=== PATIENT | female | born 1985 | race Caucasian/White ===

== ENCOUNTER 2019-10-23 23:04 | Emergency (ER) | payer BC, OTHER, SELFPAY ==
--- NOTE | ~2019-10-23 | CT_ITS ---
EXAMINATION: CT abdomen pelvis w con INDICATION: Right upper quadrant pain TECHNIQUE: Computed tomographic images of the abdomen and pelvis were obtained after the administrati on of 100 cc of Omnipaque 350 intravenous contrast. The dose-length product (DLP) was 1688.62 mGy-cm. Automated exposure control and iterative reconstruction technique were employed. COMPARISON: 01/07/2019 FINDINGS: The lung bases are clear. The heart size is normal. The liver is diffusely low in attenuati on when compared with the spleen, consistent with hepatic steatosis. The spleen, pancreas, gallbladde r, and adrenal glands are normal. The kidneys are unremarkable. No pathologically enlarged abdominal or pelvic lymph nodes are identified. There is no free intraperitoneal gas or evidence of bowel obstr uction. There is liquid stool throughout the colon to the level of the rectum. There is moderate lowe r lumbar spondylosis. IMPRESSION: 1. No CT correlate for the patient's symptoms. 2. Diffuse hepatic steatosis. Reviewed, dictated and finalized at location A. [employer] TESTER
[2019-10-23 23:05] VITALS: BP 156/110; PULSE 104; RESP 16; TEMP 36.2; O2SAT 98
--- NOTE | 2019-10-23 23:42 | PC.NURSE ---
pt states she was diagnosed w/ flu 3 weeks ago and is having similar symptoms.
--- NOTE | 2019-10-23 23:49 | ED.NAVMDI ---
HPI - Nausea/Vomiting/Diarrhea General Chief complaint: Nausea/Vomiting/Diarrhea Stated complaint: VOMITTING AND DIARRHEA Time Seen by Provider: 10/23/19 23:43 Source: patient and RN notes reviewed Mode of arrival: ambulatory Limitations: no limitations History of Present Illness HPI Narrative: Pt is a 34 y/o female who presents to the ED with c/o nausea, vomiting, and diarrhea starting roughly 2 hours ago. 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 Pt notes that she woke up around 21:40 this evening with nausea and vomiting. She states that her emesis appears reddish/brown in color. Pt states that she has also had two episodes of diarrhea since she began vomiting. She reports recent chills and sore throat, but denies any rhinorrhea, cough, dysuria, or urinary frequency. MD elicited complaint: nausea, vomiting and diarrhea Onset (ago): hour(s) (2) Description of vomiting: other (reddish/brown) Associated nausea: Yes Context: sick contacts Associated symptoms: fever/chills (chills) and other (sore throat) Related Data Allergies Allergy/AdvReac Type Severity Reaction Status Date / Time adhesive Allergy Unknown RASH Verified 07/24/19 18:43 codeine Allergy Unknown Unknown Verified 07/24/19 18:43 levofloxacin Allergy Unknown Unknown Verified 07/24/19 18:43 Penicillins AdvReac Unknown Unknown Verified 07/24/19 18:43 Review of Systems Review of Systems: All systems reviewed & are unremarkable except as noted in HPI and below Constitutional: Constitutional: Reports chills ENT: Denies nasal discharge and Reports sore throat Respiratory: Respiratory: Denies cough Gastrointestinal: Gastrointestinal: Reports diarrhea, Reports nausea and Reports vomiting Genitourinary: Genitourinary: Denies dysuria and Denies other (urinary frequency) [facility] Past Medical History Medical History Anemia Anxiety Arthritis Bipolar disorder Depression GERD (gastroesophageal reflux disease) HTN (hypertension) Migraines PCOS (polycystic ovarian syndrome) Previous known suicide attempt Schizophrenia Sleep apnea UTI (urinary tract infection) Surgical History Surgical History History of bunionectomy History of colonoscopy Hx of foot surgery repair of bunionectomy Hx of spinal surgery Social History Social History Smoking status: Never smoker Alcohol intake: never 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 Exam Narrative: Exam Narrative: GENERAL: Well-appearing, morbidly obese, and in no acute distress. HEAD: Normocephalic, atraumatic. ENT: Mucous membranes moist. CHEST: Clear to auscultation. No respiratory distress. HEART: Regular rate and rhythm. Normal peripheral pulses. ABDOMEN: Soft, mild upper abdominal discomfort without guarding, nondistended, normal active bowel sounds. EXTREMITIES: Normal range of motion. No edema. SKIN: Warm, dry, no rash. NEURO: Alert and oriented x3. PSYCH: Normal mood and affect. Course Course Emergency Course: Informed of results. Discharge home. Vital Signs Vital signs: Vital Signs Temperature 97.2 F L 10/23/19 23:05 Pulse Rate 104 H 10/23/19 23:05 Respiratory Rate 16 10/23/19 23:05 Blood Pressure 156/110 H 10/23/19 23:05 Pulse Oximetry 98 10/23/19 23:05 Temperature 97.2 F L 10/23/19 23:05 Pulse Rate 95 10/24/19 01:30 Respiratory Rate 18 10/24/19 01:30 Blood Pressure 150/92 H 10/24/19 01:30 Pulse Oximetry 99 10/24/19 01:30 MDM - Nausea/Vomiting/Diarrhea Lab Data Result diagrams: 10/24/19 00:07 10/24/19 00:07 Labs: Lab Results 10/24/19 10/24/19 Range/Units 00:07 00:07 WBC 12.4 H (4.5-10.0) K/mm3 RBC 5.04 (4.2-5.4) M/mm3 Hgb 14.9 (12.0-15.0) g/dL Hct 45.2 (37.0-47.0) % MCV 89.7 (80-100) fl MCH 29.6
[2019-10-24] MEDS: ONDANSETRON INJ 4 MG/2 ML VIAL IV PUSH (00:10)
[2019-10-24] MEDS: SODIUM CHLORIDE 0.9% IV 1,000 ML 999 ML IV CONT (00:10)
[2019-10-24 00:25] LABS: Basophils Percent Auto 0.3 % (0.2-1.2); Eosinophils Percent Auto 0.2 % (0-4.4); Hematocrit 45.2 % (37.0-47.0); Hemoglobin 14.9 g/dL (12.0-15.0); Immature Granulocyte Absolute 0.03 K/mm3 (0.00-0.031); Immature Granulocyte Percent A 0.2 % (0-0.5); Lymphocytes Absolute Auto 1.76 K/mm3 (0.9-3.2); Lymphocytes Percent Auto 14.2 % (18.3-44.2); Mean Corpuscular Hemoglobin 29.6 pg (26-34); Mean Corpuscular Volume 89.7 fl (80-100); Mean Platelet Volume 9.7 fl (7.4-10.4); Monocytes Absolute Auto 0.9 K/mm3 (0.1-0.6); Monocytes Percent Auto 7.1 % (2.6-8.5); Neutrophils Absolute Auto 9.7 K/mm3 (1.3-6.7); Platelet Count Result 336 k/mm3 (150-375); Red Blood Count 5.04 M/mm3 (4.2-5.4); Red Cell Distribution Width 13.3 % (11.5-14.5); White Blood Count 12.4 K/mm3 (4.5-10.0)
[2019-10-24 00:27] VITALS: BP 162/95; PULSE 100; RESP 18; O2SAT 99
[2019-10-24 00:33] LABS: Alanine Aminotransferase 52 U/L (4-35); Albumin Level 4.5 g/dL (3.5-5.1); Alkaline Phosphatase 124 U/L (38-126); Aspartate Amino Transferase 61 U/L (14-36); Bilirubin,Total 0.4 mg/dL (0.2-1.3); Blood Urea Nitrogen 8 mg/dL (7-17); Calcium 9.3 mg/dL (8.4-10.2); Carbon Dioxide 29 mmol/L (22-30); Chloride 101 mmol/L (98-107); Estimated CRCL calculation 155 ml/min; Estimated Glomerular Filt Rate > 60; Glucose 130 mg/dL (65-105); Lipase 106 U/L (23-300); Potassium 4.2 mmol/L (3.4-5.0); Sodium 141 mmol/L (137-145)
--- NOTE | 2019-10-24 00:40 | PC.NURSE ---
pt states to this rn that is still nauseated. she also states shes developed abd pain. md notified.
[2019-10-24] MEDS: PROMETHAZINE HCL 25 MG/ML AMPUL 12.5 MG IV PUSH (00:55)
--- NOTE | 2019-10-24 00:59 | PC.NURSE ---
pt to CT via w/c
--- NOTE | 2019-10-24 01:29 | PC.NURSE ---
pt denies any vomiting. states nausea is tolerated. md notified.
[2019-10-24 01:30] VITALS: BP 150/92; PULSE 95; RESP 18; O2SAT 99
[2019-10-24 02:35] VITALS: BP 162/89; PULSE 99; RESP 16; O2SAT 99
[2019-10-24 03:05] VITALS: BP 150/99; PULSE 88; RESP 16; O2SAT 94
== END 2019-10-24 03:07 | disposition home or self-care (01) ==
PROVIDERS: Emergency Provider Emergency Medicine; PCP Family Medicine
DX: K52.9 Noninfective gastroenteritis and colitis, unspecified (principal); Z86.2 Personal history of diseases of the blood and blood-forming organs and certain disorders involving the immune mechanism; M19.90 Unspecified osteoarthritis, unspecified site; I10 Essential (primary) hypertension; E28.2 Polycystic ovarian syndrome; G47.30 Sleep apnea, unspecified; Z87.440 Personal history of urinary (tract) infections
CPT/HCPCS: 36415; 74177; 80053; 81025; 83690; 85025; 87804; 96361; 96374; 96375; 99284; J2405; J2550; J7030; Q9967

== ENCOUNTER 2019-12-28 19:22 | Emergency (ER) | payer BC, OTHER, SELFPAY ==
--- NOTE | ~2019-12-28 | XR_ITS ---
EXAMINATION: XR knee RT 3V DATE: 12/28/2019 21:11 INDICATION: Right knee pain TECHNIQUE: Three views of the right knee were obtained. COMPARISON: 05/06/2014 FINDINGS: Alignment is normal. No fracture or osteochondral lesion. Joint spaces are normal with no e rosions. No joint effusion/synovitis. Soft tissues are unremarkable. IMPRESSION: 1. No acute osseous abnormality. Reviewed, dictated and finalized at location A.
[2019-12-28 19:32] VITALS: BP 163/107; PULSE 99; RESP 19; TEMP 36.6; O2SAT 100
--- NOTE | 2019-12-28 20:05 | ED.GENADULT ---
HPI - General Adult General Chief complaint: Unspecified Stated complaint: sore throat Time Seen by Provider: 12/28/19 20:03 History of Present Illness HPI narrative: 34 yo female w/ h/o obesity, DJD, borderline personality disorder presents with multiple complaints. She has had a cough and sore throat for 2 weeks. More recently she developed nausea, sore throat, and fatigue. Additionally she has pain below her right knee at the insertion of the patellar tendon. She is concerned that she may have COVD-19. 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 Related Data Allergies Allergy/AdvReac Type Severity Reaction Status Date / Time adhesive Allergy Unknown RASH Verified 07/24/19 18:43 codeine Allergy Unknown Unknown Verified 07/24/19 18:43 levofloxacin Allergy Unknown Unknown Verified 07/24/19 18:43 Penicillins AdvReac Unknown Unknown Verified 07/24/19 18:43 Review of Systems Review of Systems: All systems reviewed & are unremarkable except as noted in HPI and below Constitutional: Constitutional: Reports chills and Denies fever(s) Eyes: Eyes: Reports no additional eye complaints ENT: Reports sore throat Cardiovascular: Cardiovascular: Denies chest pain Respiratory: Respiratory: Reports cough and Reports dyspnea PMFSH Social History Social History Smoking status: Never smoker Alcohol intake: never Gender identity (if verbalized by the patient): Female Exam Const: General: no acute distress and alert Nutritional Appearance: obese Orientation/consciousness: patient oriented x3 HENMT: Ears: TM's normal bilaterally and Abnormal EAC present erythema bilateral Face and sinus: sinuses nontender Other: pharynx shows mild erythema Neck: Neck: normal visual inspection and no lymphadenopathy Resp: Effort & Inspection: normal respiratory effort Auscultation: clear to auscultation bilaterally Cardio: Rate: regular rate Rhythm: regular rhythm GI: GI Palp: Yes Soft to palpation and No Tenderness to palpation present (GI) Skin: General skin exam: normal color Rashes: no rashes Neuro: General: patient oriented x3, moves all extremities and no focal motor deficits Speech: normal speech Extrem: Other: tnederness inferior to right knee without other exam findings Psych: Affect: Anxious affect present Course Vital Signs Vital signs: Vital Signs Temperature 36.6 C 12/28/19 19:32 Pulse Rate 99 12/28/19 19:32 Respiratory Rate 19 12/28/19 19:32 Blood Pressure 163/107 H 12/28/19 19:32 Pulse Oximetry 100 12/28/19 19:32 Temperature 37.1 C 12/28/19 22:41 Pulse Rate 85 12/28/19 22:41 Respiratory Rate 16 12/28/19 22:41 Blood Pressure 162/97 H 12/28/19 22:41 Pulse Oximetry 99 12/28/19 22:41 Medical Decision Making MDM Narrative Medical decision making narrative: SHe is at risk for COVID exposure, although symptoms are mild and nonspecific. I will test her due to the fact that she has the potential infect numerous others Medical Records Medical records reviewed: Yes I reviewed the patient's medical records. Vital Signs Vital Signs: Vital Signs Temperature 36.6 C 12/28/19 19:32 Pulse Rate 99 12/28/19 19:32 Respiratory Rate 19 12/28/19 19:32 Blood Pressure 163/107 H 12/28/19 19:32 Pulse Oximetry 100 12/28/19 19:32 Temperature 37.1 C 12/28/19 22:41 Pulse Rate 85 12/28/19 22:41 Respiratory Rate 16 12/28/19 22:41 Blood Pressure 162/97 H 12/28/19 22:41 Pulse Oximetry 99 12/28/19 22:41 Lab Data Labs: Lab Results 12/28/19 Range/Units 22:32 SARS-CoV-2 RNA (RT-PCR) Pending Discharge Plan Discharge Clinical Impression: Pain in right knee Qualifiers: Chronicity: acute Qualified Code(s): M25.561 - Pain in right knee URI (upper respiratory infection) Qualifiers: URI type: unspecified URI Qualified Code(s): J06.9 -
[2019-12-28 22:41] VITALS: BP 162/97; PULSE 85; RESP 16; TEMP 37.1; O2SAT 99
[2019-12-29 15:10] LABS: SARS-CoV-2 RNA PCR Negative
== END 2019-12-28 22:45 | disposition home or self-care (01) ==
PROVIDERS: Emergency Provider Emergency Medicine; PCP Family Medicine
DX: J06.9 Acute upper respiratory infection, unspecified (principal); M25.561 Pain in right knee; E66.9 Obesity, unspecified; Z68.42 Body mass index [BMI] 45.0-49.9, adult
CPT/HCPCS: 73562; 87070; 87635; 99283; C9803; U0003

== ENCOUNTER 2020-02-27 23:12 | Observation (INO) | payer BC, OTHER, SELFPAY ==
--- NOTE | ~2020-02-27 | XR_ITS ---
EXAMINATION: XR chest 1V portable DATE: 02/28/2020 01:18 INDICATION: Status. Left-sided numbness. Chest pain. TECHNIQUE: PA view of the chest was obtained. COMPARISON: None FINDINGS: The lungs are clear with no focal airspace opacities, pulmonary edema, pleural effusion or pneumothor ax. The cardiomediastinal silhouette is normal. Visualized bones and soft tissues are unremarkable. IMPRESSION: 1. No acute cardiopulmonary disease. Reviewed, dictated and finalized at location A.
--- NOTE | ~2020-02-27 | CT_ITS ---
EXAMINATION: CTA brain carotid EXAM DATE: 02/28/2020 01:15 INDICATION: Left-sided numbness for 2 hours. Frontal posterior headache and nausea. TECHNIQUE: Noncontrast head CT. Spiral CTA of the carotid arteries was performed with intravenous i njection 100 cc of Omnipaque 350. Axial, coronal, sagittal reformatted images reviewed. Additional r eformatted images created on dedicated 3-D workstation. NASCET comparable standard used to assess th e degree of arterial stenosis. Spiral CT angiogram cerebral arteries performed with the same intrave nous injection of contrast. Source images of the brain CTA transferred to dedicated workstation for 3 -D rotational image creation. Coronal, sagittal maximum intensity pixel images also reviewed. The d ose-length product (DLP) for this examination was 1853.13 mGy-cm. The exposure was tailored accordi ng to patient size, and iterative reconstruction (ASIR) was used as additional dose reduction techniq ue. Correlation is made to head CT 03/04/2018. FINDINGS: There is no carotid plaque, 0% carotid stenosis bilaterally. There is no carotid or verteb ral basilar arterial dissection or fibromuscular dysplasia. There are no cerebral artery aneurysms. T here is symmetric cerebral artery arborization. The sagittal, transverse and sigmoid sinuses enhance normally, no venous sinus thrombosis. Internal cerebral veins also enhance normally. There is no acute intraparenchymal hemorrhage. No evidence of intraparenchymal brain mass lesion. N o evidence of acute infarction. There is no mass effect or midline shift. There is no obstructive hyd rocephalus suspected. There are no extra-axial collections. There are no calvarial acute fractures. There are no areas of abnormal enhancement on the postcontrast images. Disconjugate gaze. IMPRESSION: 1. No cervical arterial dissection or cerebral artery aneurysm. 2. Normal carotid arteries bilaterally. Reviewed, dictated and finalized at location B.
--- NOTE | ~2020-02-27 | MR_ITS ---
EXAMINATION: MR brain/brain stem wo/w con EXAM DATE: 02/28/2020 12:34 INDICATION: Left-sided paresthesia. Left-sided headache. TECHNIQUE: Magnetic resonance imaging (MRI) of the brain/brain stem obtained without contrast. Sagit julio c T1, axial diffusion, gradient echo (T2*), T1, T2, FLAIR sequences obtained. Patient was then inj ected with 20 cc intravenous Multihance contrast. Axial and coronal postcontrast T1 weighted sequence s obtained. There is no prior study for comparison. FINDINGS: There are no areas of restricted diffusion to suggest acute infarction. There is no acute hemorrhage seen on the T2*, a hemosiderin sensitive sequence. No intraparenchymal brain mass. The ve ntricles are normal in size. There are no extra-axial collections. Flow voids are seen in the cereb ral arteries on the T2-weighted sequences consistent with their expected patency. The orbits are unr emarkable. Soft tissue is unremarkable. There are no areas of abnormal enhancement on the postcont rast images. IMPRESSION: 1. Normal brain MRI examination. Reviewed, dictated and finalized at location B.
--- NOTE | ~2020-02-27 | MR_ITS ---
EXAMINATION: MR cervical spine wo con EXAM DATE: 02/29/2020 13:33 INDICATION: Sensation change. Paresthesia, abnormal or movement. TECHNIQUE: Multi-sequential, multiplanar MR images of the cervical spine were obtained without contra st. Axial T2, axial T2 MERGE sequence. Sagittal T1, T2, T2 fat saturation images also obtained. Th ere is no prior study for comparison. FINDINGS: The vertebral bodies are aligned in the AP dimension. Vertebral body and disc heights are well-maintained. There are no suspicious marrow signal abnormalities. The spinal cord signal intensit y and intrinsic morphology is normal. Cervicomedullary junction is normal in appearance. Paraspinal s oft tissue is unremarkable. Level by level evaluation: C2-C3: Disc does not extend beyond the endplate margin. Uncovertebral joint arthropathy: None. Facet joint arthropathy: Mild bilateral. Neural foraminal stenosis: No stenosis. Central canal stenosis: No stenosis. C3-C4: Disc does not extend beyond the endplate margin. Uncovertebral joint arthropathy: Mild right. Facet joint arthropathy: Mild bilateral. Neural foraminal stenosis: No stenosis. Central canal stenosis: No stenosis. C4-C5: Disc does not extend beyond the endplate margin. Uncovertebral joint arthropathy: Mild bilateral. Facet joint arthropathy: Mild bilateral. Neural foraminal stenosis: No stenosis. Central canal stenosis: No stenosis. C5-C6: There is a mild diffuse disc bulge. Uncovertebral joint arthropathy: Mild bilateral. Facet joint arthropathy: Mild bilateral. Neural foraminal stenosis: Mild left. Central canal stenosis: No stenosis. C6-C7: There is a mild diffuse disc bulge. Uncovertebral joint arthropathy: Mild bilateral. Facet joint arthropathy: Mild bilateral. Neural foraminal stenosis: Minimal left. Central canal stenosis: No stenosis. C7-T1: Disc does not extend beyond the endplate margin. Uncovertebral joint arthropathy: Mild left. Facet joint arthropathy: Mild bilateral. Neural foraminal stenosis: Minimal left. Central canal stenosis: No stenosis. IMPRESSION: 1. Mild cervical spondylosis. 2. Normal cord signal. Reviewed, dictated and finalized at location B.
[2020-02-27 23:13] VITALS: BP 145/108; PULSE 103; RESP 20; TEMP 36.4; O2SAT 99
[2020-02-28] VITALS (12 sets, daily range): BP systolic 133–151; BP diastolic 81–100; PULSE 86–99; RESP 15–21; TEMP 36.3–36.9; O2SAT 96–100
--- NOTE | 2020-02-28 00:08 | ECG_ITS ---
Measurements Intervals Kelley Rate: 96 P: 61 PA: 188 QRS: 37 QRSD: 106 T: 38 QT: 335 QTc: 425 Interpretive Statements SINUS RHYTHM MINIMAL Q WAVES- INFERIOR LEADS NONSPECIFIC T-WAVE ABNORMALITY- HIGH LATERAL LEADS BORDERLINE ECG Electronically Signed On 02-28-2020 6:46:33 CDT by Flako Palm D.O.
--- NOTE | 2020-02-28 00:14 | ED.GENADULT ---
HPI - General Adult General Chief complaint: Unspecified Stated complaint: L SIDED NUMBNESS Time Seen by Provider: 02/27/20 23:28 Source: patient Mode of arrival: ambulatory Limitations: no limitations History of Present Illness HPI narrative: This patient is a 35 year old female who presents for evaluation left face and arm numbness. She states approximately on hour and half ago she noticed numbness to left face and left arm. She reports she does not have numbness but his left side does not feel right. She also reports for the past week she has been intermittent dropping things with both hands. She states she is have abnormal movement that are causing her to drop things. She also reports frontal and posterior headache that is constant. She states she chronically has headaches due to bulging disc and this does not feel any different. She denies vision or speech issues. Related Data Home Medications Medication Instructions Recorded Confirmed cyclobenzaprine 10 mg PO TID PRN 02/28/20 02/28/20 divalproex [Depakote ER] 500 mg PO TID 02/28/20 02/28/20 gabapentin 600 mg PO DIRECTED PRN 02/28/20 02/28/20 quetiapine [Seroquel] 100 mg PO HS 02/28/20 02/28/20 sertraline [Zoloft] 100 mg PO DAILY 02/28/20 02/28/20 Allergies Allergy/AdvReac Type Severity Reaction Status Date / Time adhesive Allergy Unknown RASH Verified 07/24/19 18:43 codeine Allergy Unknown Unknown Verified 07/24/19 18:43 levofloxacin Allergy Unknown Unknown Verified 07/24/19 18:43 Penicillins AdvReac Unknown Unknown Verified 07/24/19 18:43 Review of Systems Review of Systems: All systems reviewed & are unremarkable except as noted in HPI and below Cardiovascular: Cardiovascular: Reports chest pain Gastrointestinal: Gastrointestinal: Denies abdominal pain and Denies nausea Neurologic: Denies dizziness, Reports headache(s) (chronic), Denies focal weakness and Reports numbness Psychiatric: Psychiatric: Reports anxiety PMFSH Past Medical History Medical History Anemia Anxiety Arthritis Bipolar disorder Depression GERD (gastroesophageal reflux disease) HTN (hypertension) Migraines PCOS (polycystic ovarian syndrome) Previous known suicide attempt Schizophrenia Sleep apnea UTI (urinary tract infection) Social History Social History Smoking status: Never smoker Alcohol intake: current Drinks per week: 1 Substance use: unknown Gender identity (if verbalized by the patient): Female Spiritual care concerns: No Exam Narrative: Exam Narrative: GENERAL: Well-appearing, well-nourished, and in no acute distress. obese HEAD: Normocephalic, atraumatic EYES: PERRLA and EOMI, conjunctiva clear without discharge EARS: TM's clear bilaterally without erythema or dullness NOSE: Nares clear, no rhinorrhea or epistaxis THROAT:Mucous membranes moist, Oropharynx normal without erythema, exudate, peritonsillar swelling or fluctuance NECK: Supple, without lymphadenopathy or mass RESPIRATORY: No respiratory distress, Airway patent, Respirations non-labored, Clear to auscultation without rales, rhonchi or wheeze HEART: Regular rate and rhythm. No murmur heard. Normal peripheral pulses. ABDOMEN: Soft, nontender, nondistended, normal active bowel sounds. No masses. No rebound or guarding, No organomegaly. EXTREMITIES: No edema, normal strength with full range of motion. some tremors SKIN: Warm, dry, normal color without rash NEURO: Alert and oriented x3. CN 2-12 grossly intact. No focal deficits. PSYCH: Normal mood and affect. Course Reevaluation(s) Date: 02/28/20 Time: 04:03 Consultations Consultation #1: I have discussed with Dr. Kelley patient's symptoms. He recommends offering admission for evaluation with EEG possible LP Date: 02/28/20 Time: 03:30 Consultation #2: I have discsused with Dr. Ling who accepts for observation to tele Date:
[2020-02-28 00:33] LABS: Glucose Point of Care 165 (65-105)
[2020-02-28 00:36] LABS: Basophils Percent Auto 0.6 % (0.2-1.2); Eosinophils Percent Auto 0.4 % (0-4.4); Hematocrit 42.5 % (37.0-47.0); Hemoglobin 14.2 g/dL (12.0-15.0); Immature Granulocyte Absolute 0.01 K/mm3 (0.00-0.031); Immature Granulocyte Percent A 0.1 % (0-0.5); Lymphocytes Absolute Auto 2.34 K/mm3 (0.9-3.2); Lymphocytes Percent Auto 32.9 % (18.3-44.2); Mean Corpuscular HGB Conc 33.4 g/dl (32-36); Mean Corpuscular Hemoglobin 29.9 pg (26-34); Mean Corpuscular Volume 89.5 fl (80-100); Mean Platelet Volume 9.3 fl (7.4-10.4); Monocytes Absolute Auto 0.6 K/mm3 (0.1-0.6); Monocytes Percent Auto 7.7 % (2.6-8.5); Neutrophils Absolute Auto 4.2 K/mm3 (1.3-6.7); Neutrophils Percent Auto 58.3 % (45.5-73.1); Platelet Count Result 291 k/mm3 (150-375); Red Blood Count 4.75 M/mm3 (4.2-5.4); Red Cell Distribution Width 13.6 % (11.5-14.5); White Blood Count 7.1 K/mm3 (4.5-10.0)
[2020-02-28 00:45] LABS: Prothrombin Time 12.4 Seconds (11.1-14.7)
[2020-02-28 00:47] LABS: Blood Urea Nitrogen 8 mg/dL (7-17); Calcium 9.1 mg/dL (8.4-10.2); Carbon Dioxide 32 mmol/L (22-30); Chloride 103 mmol/L (98-107); Estimated CRCL calculation 156 ml/min; Estimated Glomerular Filt Rate > 60; Glucose 152 mg/dL (65-105); Potassium 3.8 mmol/L (3.4-5.0); Sodium 139 mmol/L (137-145)
[2020-02-28 00:59] LABS: Troponin I < 0.012 ng/mL (0.000-0.034)
--- NOTE | 2020-02-28 01:06 | PC.NURSE ---
Callled lab to add on Valproic Acid
[2020-02-28 01:37] LABS: Valproic Acid 79.9 ug/mL (50-120)
--- NOTE | 2020-02-28 05:42 | PC.NURSE ---
This patient, Kathy Malcolm, was admitted to 2 Medical Room 242-. Patient/family oriented to hospital policies and general routines including ID bracelet, bed and alarms, visiting hours, pain management, procedures, bathroom and other care routines, personal items, smoking policy, room service/diet, and visiting hours. Valuables list has been completed. Information on how to activate the Rapid Response Team has been discussed. Patient/Family are encouraged to report perceived risks to care and to ask questions if they do not understand what they are told or what they should do.
[2020-02-28] MEDS: DIVALPROEX SODIUM ER 500 MG TAB PO (08:33)
[2020-02-28] MEDS: SERTRALINE HCL 50 MG TABLET 100 MG PO (08:33)
--- NOTE | 2020-02-28 11:00 | NEURO_ITS ---
TEST: ELECTROENCEPHALOGRAM DIAGNOSIS: ABNORMAL MOVEMENTS PATIENT NUMBER: [id number] EEG NUMBER: [id number] RECORDING DATE: 02/28/20 CLINICAL HISTORY: Patient reports she noticed some numbness of her left arm and left side of face. CONDITION OF RECORDING: Awake, drowsy and sleep EEG DESCRIPTION: Basic resting occipital frequency consists of moderate amount of fairly well organized low voltage 8-10hz alpha mixed with low to medium voltage 6-7hz theta. During drowsiness low voltage beta activity is seen diffusely mixed with waxing and waning posterior alpha rhythms. Bilateral symmetrical sleep activity is seen during sleep. Hyperventilation and photic stimulation were not done. Nonparoxysmal. Nonfocal. Nonlateralizing. IMPRESSION: No significant abnormalities noted during wakefulness, drowsiness and sleep. MTDD
[2020-02-28] MEDS: GABAPENTIN 300 MG CAPSULE 600 MG PO ×2 (11:50→20:34)
--- NOTE | 2020-02-28 14:10 | PM.IMHP ---
H&P: HPI History of Present Illness Chief complaint: parasthesis, abnormal arm movements, headache Narrative: Kathy Malcolm is a 35 year old female with PMH significant for degenerative arthritis, L5-S1 and L4-L5 disc herniation, migraines, PCOS, bipolar disorder, major depressive disorder, dependent obsessive compulsive disorder and borderline personality disorder, binge eating disorder, anxiety, psychosis, and hx of petit mal seizure disorder who presented to the emergency department for the evaluation of numbness of the left face and lateral aspect of the left arm and leg with onset approximately 1.5 hours prior to presentation to the ED at 11:30PM. She reports that it is improving but is still present. She denies associated vision complaints and speech change. She reports chronic, intermittent headaches due to her bulging discs as well as migraines but reports that this is at baseine and her headache was no worse at symptom onset. She reports a hx of prior episodes of paresthesias bugs crawling and numbness in various areas but notes that they have always been short-lived prior to this episode. She endorses episodes of intermittent hand twitching bilaterally which causes her to drop things. Her father was affected by multiple sclerosis and she is concerned that she may be developing early signs of MS. She reports that she saw neurology several years ago for her seizure disorder but has not seen neurology recently. She was established with a psychiatrist but her PCP is currently managing her psychiatric medications. She reports ongoing depression but denies suicidal or homicidal ideations. Initial workup in the emergency department revealed CO2 of 32 and glucose of 152. CBC and BMP were otherwise unremarkable. Valproic acid level was normal at 79.9. Chest xray revealed no acute cardiopulmonary disease. CTA head and neck was unreamrkable with no carotid stenosis, cervical arterial dissection, or cerebral artery aneurysm. Dr. Kelley was consulted from the emergency department and the patient was admitted to the hospitalist service. MRI was performed and was normal without evidence of infarction, mass, or abnormal enhancement. She underwent EEG which revealed no significant abnormalities during wakefulness, drowsiness, and sleep. Review of Systems Review of Systems: Narrative: Constitutional: Denies fever, chills, fatigue, and weight change. Eyes: Denies vision change. No additional eye complaints. ENT: Denies change in hearing and sore throat. Cardiovascular: Denies palpitations and chest pain. Respiratory: Denies cough and shortness of breath. Gastrointestinal: Denies abdominal pain. Reports constipation and mild nausea. Genitourinary: Denies dysuria, frequency, urgency, and hesitancy. Musculoskeletal: Reports chronic back pain due to herniated disc disease. Reports chronic right knee pain. Skin: Denies active lesions or wounds. Neurologic: Reports numbness to the left face and lateral arm and leg. Denies speech change. Reports intermittent paresthesias. Psychiatric: Reports chronic dysthymia. She sees a counselor and her PCP is managing her antidepressives and other psychiatric medications. She denies suicidal or homicidal ideation. Hematologic: Denies easy bruising and bleeding. All systems reviewed & are unremarkable except as noted in HPI and below PMFSH Past Medical History Medical History Anemia Anxiety Arthritis Bipolar disorder Borderline personality disorder Degenerative arthritis Dependent personality disorder Depression Disc herniation GERD (gastroesophageal reflux disease) HTN (hypertension) Migraines Obsessive compulsive personality disorder PCOS (polycystic ovarian syndrome) Petit mal epilepsy Previous known suicide attempt Schizophrenia Sleep apnea UTI (urinary tract infection) Surgical History Surgical History
--- NOTE | 2020-02-28 14:42 | PCCCNOTE ---
On 02/28/20, the student, [Nisha Bernstein], provided care and completed [facility] documentation on this patient. I have reviewed the student's documentation and agree with the findings.
[2020-02-28 15:05] LABS: Glucose Point of Care 148 (65-105)
--- NOTE | 2020-02-28 17:59 | CONS_ITS ---
DATE OF CONSULTATION: 02/28/2020 HISTORY OF PRESENT ILLNESS: A 35-year-old lady has been admitted to [facility] through the emergency room for the complaint of paresthesia with the abnormal movements and headache. In addition to ongoing history of: 1. Degenerative arthritis at the level of L5-S1 and L4-5 with disk herniation. 2. Migraines. 3. Polycystic ovarian syndrome. 4. Bipolar disorder. 5. Obsessive-compulsive disorder. 6. Personality disorder. 7. Petite mal seizure. She presented to the hospital for the complaints of numbness of the left side of the face and lateral aspect of left arm and left lower extremity of 1.5 hours duration. By the time she came to the emergency room, it was still there, but definitely improving according to the information from here. She has history of chronic intermittent headaches due to her bulging disk as well as migraine. She has had previously episodes of paresthesia such as bugs crawling and numbness in various areas, but they have always been short-lived prior to the episode. She also had episodes of twitching of the hands bilaterally resulting in the drop of the things out of her hand. Her father was affected by multiple sclerosis. She is concerned about that particular problem having herself. Her PCP is managing her currently psychiatric medication. She is not suicidal or homicidal. In the emergency room, the chest x-ray was negative. CTA of the head and neck was read negative with no evidence of cervical arterial dissection or cerebral artery aneurysm. MRI was also performed, which showed no evidence of stroke. EEG was also done, which was read by myself, which revealed no evidence of any paroxysmal activity. In addition to past history, consistent with multiple medical problems as mentioned. She had a history of bunionectomy, colonoscopy, foot surgery and spinal surgery. Father carries the diagnosis of depression, multiple sclerosis, diabetes mellitus and mother also carries the diagnosis of hypertension and diabetes mellitus. 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 She is never smoker. Current alcohol drinker, 1 drinks per week. She is smoking marijuana, infrequent for the pain and anxiety. MEDICATIONS: Include: 1. Cyclobenzaprine 10 mg 3 times a day. 2. Depakote 500 mg p.o. t.i.d. 3. Gabapentin 600 p.r.n. 4. Seroquel 100 mg h.s. 5. Sertraline 100 mg daily. ALLERGIES: SHE IS ALLERGIC TO ADHESIVE TAPE, CODEINE, LEVOFLOXACIN, AND PENICILLIN. PHYSICAL EXAMINATION: VITAL SIGNS: Evaluation up until now revealed her to be afebrile with pulse of 103, respirations 20, blood pressure 145/108, pulse ox 99%. GENERAL: Physical examination revealed her to be obese, in no obvious acute distress. Able to ambulate independently. HEENT: Head normocephalic with no cranial bruit. Ear, nose and throat examination normal. NECK: Supple with no cervical bruit. No thyromegaly. No lymphadenopathy. HEART: Regular with no murmur. LUNGS: Clear to auscultation with no creps or rhonchi. ABDOMEN: Soft with no organomegaly. There was no evidence of this edema or erythema of the lower extremities. NEUROLOGICAL: She was awake, alert, oriented x3. Pupils round, regular. Cherry of vision full. Extraocular movements full. Face symmetrical. Tongue midline. Motor examination revealed her to have no drift of one side or other side. Tone was normal. Reflexes were sluggish. Plantars were downgoing. There was no evidence of gross sensory or cerebellar deficit. LABORATORY DATA: Evaluation up until now revealed CBC with no leukocytosis. Hemoglobin 14.2, platelet count 291. Normal basic metabolic panel except glucose of 152. Troponin less than 0.12. Considering the complicated history, the MRI of
[2020-02-28] MEDS: QUEtiapine FUMARATE 100 MG TABLET PO (20:02)
[2020-02-28] MEDS: DOCUSATE SODIUM 100 MG CAPSULE PO (20:02)
[2020-02-28] MEDS: DIVALPROEX SODIUM ER 500 MG TAB 1000 MG PO (20:04)
[2020-02-28] MEDS: ONDANSETRON HCL ODT 4 MG TABLET PO (20:17)
[2020-02-28] MEDS: CYCLOBENZAPRINE HCL 10 MG TABLET PO (20:34)
[2020-02-29] VITALS (7 sets, daily range): BP systolic 122–123; BP diastolic 60–73; PULSE 71–89; RESP 12–16; TEMP 36.3–36.5; O2SAT 95–97
[2020-02-29 06:10] LABS: Alanine Aminotransferase 58 U/L (4-35); Albumin Level 3.9 g/dL (3.5-5.1); Alkaline Phosphatase 108 U/L (38-126); Aspartate Amino Transferase 78 U/L (14-36); Bilirubin,Total 0.4 mg/dL (0.2-1.3); Blood Urea Nitrogen 9 mg/dL (7-17); Calcium 8.9 mg/dL (8.4-10.2); Carbon Dioxide 32 mmol/L (22-30); Chloride 102 mmol/L (98-107); Estimated CRCL calculation 157 ml/min; Estimated Glomerular Filt Rate > 60; Glucose 105 mg/dL (65-105); Potassium 4.5 mmol/L (3.4-5.0); Sodium 139 mmol/L (137-145)
[2020-02-29] MEDS: DIVALPROEX SODIUM ER 500 MG TAB PO (08:15)
[2020-02-29] MEDS: DOCUSATE SODIUM 100 MG CAPSULE PO (08:15)
[2020-02-29] MEDS: SERTRALINE HCL 50 MG TABLET 100 MG PO (08:15)
--- NOTE | 2020-02-29 10:59 | WPDNEURORHBP ---
Subjective Date/time seen: 02/29/20 10:59 C/onumbness of IDALMISE with concer about MS Review of Systems Review of Systems: All systems reviewed & are unremarkable except as noted in HPI and below Exam Const: General: cooperative, healthy appearing, comfortable, no acute distress, alert and awake Nutritional Appearance: overweight Orientation/consciousness: patient oriented x3 Limitations: no limitations HENMT: Head: normal to inspection and normocephalic Ears: hearing grossly normal bilaterally General nose exam: Normal external nose present and No nasal discharge present Mouth: Yes Normal oral and palatal mucosa present Eyes: General: appearance normal, both eyes and all related structures Visual Mike: normal visual mike by confrontation Alignment and Position: alignment normal Periorbital: periorbital findings normal Eyelids: eyelids normal Conjunctivae: conjunctivae normal Sclera: sclerae normal Cornea: corneas normal Pupils: Equal, round and reactive pupils present EOM: EOMs intact bilaterally Neck: Neck: full ROM Resp: Effort & Inspection: normal respiratory effort and able to speak in complete sentences Auscultation: clear to auscultation bilaterally Cardio: Rate: regular rate Rhythm: regular rhythm GI: Auscultation: normal bowel sounds Skin: General skin exam: no rashes or lesions noted Neuro: General: patient oriented x3 and gait normal Cranial nerves: Yes CN's II-XII intact bilaterally Cognition (Neuro): normal cognition Speech: normal speech Gait exam (Neuro): Normal gait present Motor exam (neuro): 5/5 motor strength present throughout Sensory Exam: normal sensation Deep tendon reflexes (DTR's): Right triceps reflex intensity grade: 1+, Left triceps reflex intensity grade: 1+, Rt Biceps (C5, C6): 1+, Left biceps reflex intensity grade: 1+, Right brachioradialis reflex intensity grade: 1+, Left brachioradialis reflex intensity grade: 1+, Right patellar reflex intensity grade: 1+, Left patellar reflex intensity grade: 1+, Right ankle reflex intensity grade: 1+ and Left ankle reflex intensity grade: 1+ Plantar Reflex Responses: downgoing: bilateral Coordination: [id number] test normal Extrem: General: normal to inspection Psych: Appearance: grossly normal Objective Data Vital Signs Vital Signs: Vital Signs - 24 hr 02/28/20 14:00 02/28/20 16:00 02/28/20 20:00 Temperature 36.9 C Pulse Rate 87 95 90 Respiratory Rate 21 H Blood Pressure 146/89 H Pulse Oximetry 96 02/28/20 21:33 02/29/20 00:00 02/29/20 01:31 Temperature Pulse Rate 86 85 71 Respiratory Rate 15 12 Blood Pressure Pulse Oximetry 97 95 02/29/20 04:00 02/29/20 08:00 02/29/20 09:14 Temperature 36.5 C Pulse Rate 81 87 79 Respiratory Rate 16 Blood Pressure 122/73 Pulse Oximetry 97 Intake/Output Intake/Output: Intake & Output 02/26/20 02/27/20 02/28/20 02/29/20 23:59 23:59 23:59 23:59 Intake Total 830 420 Balance 830 420 Meds/Results Medications: Active Medications Generic Name Dose Route Start Last Admin Trade Name Freq PRN Reason Stop Dose Admin Cyclobenzaprine HCl 10 mg 02/28/20 07:06 02/28/20 20:34 Flexeril PO 10 mg TID PRN Administration Muscle Pain Divalproex Sodium 500 mg 02/28/20 09:00 02/29/20 08:15 Depakote Er PO 500 mg QAM SUKI Administration Divalproex Sodium 1,000 mg 02/28/20 21:00 02/28/20 20:04 Depakote Er PO 1,000 mg HS SUKI Administration Docusate Sodium 100 mg 02/28/20 21:00 02/29/20 08:15 Colace Capsule PO 100 mg Q12HR SUKI Administration Gabapentin 600 mg 02/28/20 07:06 02/28/20 20:34 Neurontin PO 600 mg QID PRN Administration Pain Ondansetron HCl 4 mg 02/28/20 16:23 02/28/20 20:17 Zofran Odt PO 4 mg Q6H PRN Administration Nausea And Vomiting Quetiapine Fumarate 100 mg 02/28/20 21:00 02/28/20 20:02 Seroquel PO 100 mg HS SUKI Administration Sertraline HC
[2020-02-29] MEDS: DIAZEPAM 5 MG TABLET 10 MG PO (12:52)
--- NOTE | 2020-02-29 16:14 | PM.DS ---
DS: Admitting Diagnosis Admitting Diagnosis Admitting Diagnosis: Anesthesia of skin DS: Discharge Diagnosis Discharge Diagnosis (1) Left sided numbness: Code(s): R20.0 - Anesthesia of skin Status: Acute Assessment and Plan: The patient reported left sided numbness of the face and lateral aspect of the arm and leg ongoing for 1 day. She expressed concern about multiple sclerosis as her father was affected by MS. She was seen in consultation by neurology. CTA brain was unremarkable and MRI was negative for acute stroke, hemorrhage, mass, or fluid collection. EEG revealed no significant abnormalities during wakefulness, drowsiness, and sleep. There was no abnormal enhancement on post-contrast imaging. MRI cervical spine demonstrated mild cervical spondylosis and normal cord signal. She may follow up with Dr. Kelley as an outpatient if she has further concerns. (2) Elevated hemoglobin A1c: Code(s): R73.09 - Other abnormal glucose Status: Acute Assessment and Plan: She had an elevated fasting glucose, therefore A1c was checked and found to be elevated at 7.0%. We discussed methods glycemic control including optimizing diet and exercise as well as beginning Metformin, which she requested. She has previously been on metformin and tolerated it well. She will begin a low dose metformin and follow up with PCP for uptitration. I reiterated importance of proper nutrition and beginning an exercise regimen. (3) Bipolar disorder: Qualifiers: Active/Remission status: remission status unspecified Qualified Code(s): F31.9 - Bipolar disorder, unspecified Code(s): F31.9 - Bipolar disorder, unspecified Status: Chronic Assessment and Plan: Chronic and stable. Continue seroquel and divalproex. She has been encouraged to re-establish care with her psychiatrist. (4) Depression: Qualifiers: Depression Type: major depressive disorder Major depression recurrence: recurrent Active/Remission status: remission status unspecified Qualified Code(s): F33.9 - Major depressive disorder, recurrent, unspecified Code(s): F32.9 - Major depressive disorder, single episode, unspecified Status: Chronic Assessment and Plan: Chronic and stable. Continue sertraline, outpatient counseling, and PCP follow-up. She has been encouraged to re-establish care with her psychiatrist. (5) Chronic pain: Qualifiers: Chronic pain type: other chronic pain Qualified Code(s): G89.29 - Other chronic pain Code(s): G89.29 - Other chronic pain Status: Acute Assessment and Plan: Chronic and stable. Continue gabapentin as needed. (6) Obstructive sleep apnea: Code(s): G47.33 - Obstructive sleep apnea (adult) (pediatric) Status: Chronic Assessment and Plan: Continue CPAP titrated to home setting. (7) Muscle spasm: Code(s): M62.838 - Other muscle spasm Status: Acute Assessment and Plan: Continue cyclobenzaprine as needed DS: Summary Hospital Course Reason for hospitalization: Left side numbness Hospital Course: Date of admission: 02/28/2020 Date of discharge: 02/29/2020 Kathy Malcolm is a 35 year old female with a PMH significant for bipolar disorder, borderline, dependent, and obsessive compulsive personality disorder, JAMILAH, and HTN as well as family history significant for MS in her father who presented to the emergency department on 02/28/2020 with complaints of left sided numbness to face and arm as well as posterior headache. At presentation, HR 103, BP 145/108, CBC and electrolytes stable, glucose 165, troponin <0.012, valproic acid levels within range, EKG with sinus rhythm, CTA head and neck without dissection or aneurysm, and normal carotid arteries. She was admitted to the hospitalist service and seen in consultation with neurology with workup as described above. Her skin anesthesia improv
[2020-02-29] MEDS: ONDANSETRON HCL ODT 4 MG TABLET PO (17:17)
== END 2020-02-29 17:33 | disposition home or self-care (01) ==
LOC: ANHED 23:54 → ANH2MED 02-28 04:44
PROVIDERS: Physician Assistant; Admitting Provider Family Medicine; Emergency Provider General Practice; PCP Family Medicine; Visit Provider Physician Assistant
DX: R20.0 Anesthesia of skin (principal); F31.9 Bipolar disorder, unspecified; G89.29 Other chronic pain; G47.33 Obstructive sleep apnea (adult) (pediatric); K59.00 Constipation, unspecified; K21.9 Gastro-esophageal reflux disease without esophagitis; I10 Essential (primary) hypertension; M19.90 Unspecified osteoarthritis, unspecified site; M62.838 Other muscle spasm; M79.7 Fibromyalgia; M47.812 Spondylosis without myelopathy or radiculopathy, cervical region; R73.09 Other abnormal glucose; R25.9 Unspecified abnormal involuntary movements; R07.9 Chest pain, unspecified
CPT/HCPCS: 36415; 70496; 70498; 70553; 71045; 72141; 80048; 80053; 80164; 82948; 83036; 84484; 85025; 85610; 85730; 93005; 95816; 99285; A9270; A9577; G0378; G0379; Q9967

== ENCOUNTER 2020-05-19 11:45 | Outpatient (CLI) | payer OTHER, SELFPAY ==
--- NOTE | ~2020-05-19 | XR_ITS ---
XR knee RT 3V DATE: 05/19/2020 13:16 INDICATION: Chronic bilateral knee pain TECHNIQUE: [place] and AP and lateral views COMPARISON: None FINDINGS: No fracture or dislocation or joint effusion. No periosteal reaction or bone destruction. J oint spaces are well preserved. No radiopaque intra-articular loose body or chondrocalcinosis. IMPRESSION: Negative Reviewed, dictated and finalized at location A. IMPRESSION: Negative
--- NOTE | ~2020-05-19 | XR_ITS ---
XR knee LT 3V 05/19/2020 13:16 INDICATION: Left knee pain PROCEDURE: 3 views left knee COMPARISON: No prior studies for comparison. FINDINGS: Fracture, dislocation or subluxation is not identified. No significant joint effusion. The soft tissues appear within normal limits. No foreign bodies are identified. IMPRESSION: 1: NO ACUTE BONE OR JOINT ABNORMALITY IDENTIFIED. Reviewed, dictated and finalized at location A.
[2020-05-19 12:35] LABS: Basophils Percent Auto 0.6 % (0.2-1.2); Eosinophils Percent Auto 0.6 % (0-4.4); Hemoglobin 14.2 g/dL (12.0-15.0); Immature Granulocyte Absolute 0.01 K/mm3 (0.00-0.031); Immature Granulocyte Percent A 0.1 % (0-0.5); Lymphocytes Absolute Auto 2.52 K/mm3 (0.9-3.2); Lymphocytes Percent Auto 35.8 % (18.3-44.2); Mean Corpuscular Hemoglobin 29.6 pg (26-34); Mean Corpuscular Volume 89.6 fl (80-100); Mean Platelet Volume 9.5 fl (7.4-10.4); Monocytes Absolute Auto 0.8 K/mm3 (0.1-0.6); Monocytes Percent Auto 11.5 % (2.6-8.5); Neutrophils Absolute Auto 3.6 K/mm3 (1.3-6.7); Neutrophils Percent Auto 51.4 % (45.5-73.1); Platelet Count Result 301 k/mm3 (150-375); Red Cell Distribution Width 13.4 % (11.5-14.5)
[2020-05-19 12:48] LABS: Alanine Aminotransferase 114 U/L (4-35); Albumin Level 4.4 g/dL (3.5-5.1); Alkaline Phosphatase 123 U/L (38-126); Anion Gap 9 mmol/L (8-16); Aspartate Amino Transferase 164 U/L (14-36); Bilirubin,Total 0.6 mg/dL (0.2-1.3); Blood Urea Nitrogen 13 mg/dL (7-17); Calcium 9.5 mg/dL (8.4-10.2); Carbon Dioxide 30 mmol/L (22-30); Chloride 101 mmol/L (98-107); Estimated Glomerular Filt Rate > 60; Glucose 120 mg/dL (65-105); Potassium 4.3 mmol/L (3.4-5.0); Sodium 140 mmol/L (137-145)
[2020-05-19 13:05] LABS: Beta HCG Quantitative < 2.39 mIU/ML
== END 2020-05-19 11:46 | disposition home or self-care (01) ==
PROVIDERS: PCP Family Medicine
DX: R10.11 Right upper quadrant pain (principal); M25.561 Pain in right knee; M25.562 Pain in left knee; G89.29 Other chronic pain
CPT/HCPCS: 36415; 73562; 80053; 84702; 85025

== ENCOUNTER 2020-09-05 11:46 | Emergency (ER) | payer OTHER, SELFPAY ==
[2020-09-05] VITALS (15 sets, daily range): BP systolic 134–163; BP diastolic 79–105; PULSE 87–106; RESP 18–29; TEMP 36.6; O2SAT 93–98
[2020-09-05 12:18] LABS: Glucose Point of Care 434 (65-105)
[2020-09-05 12:35] LABS: Add Urine Microscopic? YES; Appearance Urine Clear (Clear); Bilirubin Urine Negative (Negative); Blood Urine Negative (Negative); Color Urine Straw (Yellow); Glucose Urine UA 3+ mg/dL (Negative); Ketones Urine Negative (Negative); Leukocyte Esterase Ur Negative LEU/UL (Negative); Nitrate Urine Negative (Negative); Protein Urine Negative (Negative); RBC Urine 0-2 /hpf (0-2); Squamous Epithelial Cell Urine Rare /hpf (Few); Urobilinogen Urine Negative mg/dL (<2.0); WBC Urine 0-3 /hpf
[2020-09-05 12:37] LABS: Specific Grav Ur 1.033 (1.001-1.035)
[2020-09-05] MEDS: SODIUM CHLORIDE 0.9% IV 1,000 ML 999 ML IV CONT ×2 (13:12→15:02)
[2020-09-05 13:19] LABS: Basophils Percent Auto 0.3 % (0.2-1.2); Hematocrit 46.3 % (37.0-47.0); Hemoglobin 15.7 g/dL (12.0-15.0); Immature Granulocyte Absolute 0.05 K/mm3 (0.00-0.031); Immature Granulocyte Percent A 0.4 % (0-0.5); Lymphocytes Absolute Auto 3.67 K/mm3 (0.9-3.2); Lymphocytes Percent Auto 30.7 % (18.3-44.2); Mean Corpuscular HGB Conc 33.9 g/dl (32-36); Mean Corpuscular Hemoglobin 29.9 pg (26-34); Mean Corpuscular Volume 88.2 fl (80-100); Mean Platelet Volume 9.9 fl (7.4-10.4); Monocytes Absolute Auto 0.8 K/mm3 (0.1-0.6); Monocytes Percent Auto 6.6 % (2.6-8.5); Neutrophils Absolute Auto 7.4 K/mm3 (1.3-6.7); Platelet Count Result 349 k/mm3 (150-375); Red Blood Count 5.25 M/mm3 (4.2-5.4); Red Cell Distribution Width 14.2 % (11.5-14.5)
[2020-09-05 13:33] LABS: Alanine Aminotransferase 59 U/L (4-35); Albumin Level 4.6 g/dL (3.5-5.1); Alkaline Phosphatase 153 U/L (38-126); Anion Gap 14 mmol/L (8-16); Aspartate Amino Transferase 61 U/L (14-36); Bilirubin,Total 0.8 mg/dL (0.2-1.3); Blood Urea Nitrogen 11 mg/dL (7-17); Calcium 9.6 mg/dL (8.4-10.2); Carbon Dioxide 27 mmol/L (22-30); Chloride 94 mmol/L (98-107); Estimated CRCL calculation 154 ml/min; Estimated Glomerular Filt Rate > 60; Glucose 450 mg/dL (65-105); Potassium 4.8 mmol/L (3.4-5.0); Sodium 135 mmol/L (137-145)
--- NOTE | 2020-09-05 13:57 | ED.GENADULT ---
HPI - General Adult General Chief complaint: Unspecified Stated complaint: might have diabetes Time Seen by Provider: 09/05/20 12:16 Source: patient Mode of arrival: ambulatory Limitations: no limitations History of Present Illness HPI narrative: Patient presents to the emergency department with chief complaints of polyuria and polydipsia which has been occurring over the past week. Patient denies dysuria or hematuria. Patient states that she was told by her primary care provider that she is borderline diabetic. Patient states that last night she took a steroid pill to help with her chronic back pain. Patient reports that she went to have her ocular exam today and was told to go to the emergency department or follow-up with her primary care for further investigation into possible diabetes. Patient denies fever, chills, nausea, vomiting, diarrhea, chest pain or SOB. Related Data Home Medications Medication Instructions Recorded Confirmed cyclobenzaprine 10 mg PO TID PRN 02/28/20 02/28/20 divalproex [Depakote ER] 500 mg PO TID 02/28/20 02/28/20 gabapentin 600 mg PO DIRECTED PRN 02/28/20 02/28/20 quetiapine [Seroquel] 100 mg PO HS 02/28/20 02/28/20 sertraline [Zoloft] 100 mg PO DAILY 02/28/20 02/28/20 Allergies Allergy/AdvReac Type Severity Reaction Status Date / Time adhesive Allergy Unknown RASH Verified 09/05/20 12:39 codeine Allergy Unknown Anaphylaxis Verified 09/05/20 12:39 levofloxacin AdvReac Unknown Nausea and Verified 09/05/20 12:39 Vomiting Penicillins AdvReac Unknown Unknown Verified 09/05/20 12:39 Review of Systems Review of Systems: Narrative: CONSTITUTIONAL: Denies fever, chills, or sweats. EYES: Denies visual changes, redness, or discharge. ENT: Denies rhinorrhea, congestion, sore throat, or otalgia. CARDIOVASCULAR: Denies chest pain, palpitations, or edema. RESPIRATORY: Denies cough or dyspnea. GASTROINTESTINAL: Denies abdominal pain, nausea, vomiting, or diarrhea. GENITOURINARY: Reports polyuria denies dysuria or hematuria. SKIN: Denies rash or itching. MUSCULOSKELETAL: Denies back pain, joint pain, or myalgia. NEUROLOGIC: Denies headache, numbness, dizziness, or weakness. PSYCHIATRIC: Denies anxiety or depression. [facility] Past Medical History Medical History (Updated 09/05/20 @ 17:19 by Juanita Calixto PA-C) Anemia Anxiety Arthritis Bipolar disorder Borderline personality disorder Degenerative arthritis Dependent personality disorder Depression Disc herniation GERD (gastroesophageal reflux disease) HTN (hypertension) Migraines Obsessive compulsive personality disorder PCOS (polycystic ovarian syndrome) Petit mal epilepsy Previous known suicide attempt Schizophrenia Sleep apnea UTI (urinary tract infection) Surgical History Surgical History History of bunionectomy History of colonoscopy Hx of foot surgery repair of bunionectomy Hx of spinal surgery Family History Family History Father Depression Multiple sclerosis Diabetes mellitus Mother Hypertension Diabetes mellitus Social History Social History Social History: Ms. Howell lives at home with her mother and stepfather. 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 She wishes to be a full code. She has designated her mother, Rossy Rodgers, as her surrogate decision maker. She is a non-smoker. She reports occasional cannabis use. She denies other illicit substance use. She reports that she drinks wine socially on occasion. 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
[2020-09-05 14:57] LABS: Glucose Point of Care 332 (65-105)
--- NOTE | 2020-09-05 16:44 | PC.NURSE ---
Blood glucose was 302 at 16:43
[2020-09-05 16:45] LABS: Glucose Point of Care 302 (65-105)
== END 2020-09-05 17:32 | disposition home or self-care (01) ==
PROVIDERS: Family Medicine; Physician Assistant; Emergency Provider Emergency Medicine; PCP Family Medicine
DX: R73.9 Hyperglycemia, unspecified (principal); M19.90 Unspecified osteoarthritis, unspecified site; F31.9 Bipolar disorder, unspecified; K21.9 Gastro-esophageal reflux disease without esophagitis; I10 Essential (primary) hypertension; E28.2 Polycystic ovarian syndrome; F20.9 Schizophrenia, unspecified; G47.30 Sleep apnea, unspecified; F41.9 Anxiety disorder, unspecified
CPT/HCPCS: 36415; 80053; 81001; 81025; 82948; 85025; 96360; 96361; 99283; J7030

== ENCOUNTER 2020-11-25 21:20 | Emergency (ER) | payer OTHER, SELFPAY ==
--- NOTE | ~2020-11-25 | CT_ITS ---
EXAMINATION: CT abdomen w con DATE: 11/25/2020 23:21 INDICATION: Abdominal pain TECHNIQUE: Computed tomography (CT) of the abdomen and pelvis was performed with 100 mL Omnipaque-350 intravenous contrast. Automated exposure control and iterative reconstruction technique were employe d. The dose-length product was 1181.49 mGy-cm. COMPARISON: 10/24/2019 FINDINGS: Lung bases are clear. Heart size is normal. No pericardial or pleural effusion. Mild diffuse hepatic steatosis. Gallbladder, spleen, pancreas, bilateral adrenal glands and kidneys are normal. Visualized portion of the bowels are unremarkable with no wall thickening or obstruction. No pathologically enl arged abdominal lymphadenopathy. Mild lower thoracic and mild lower lumbar spondylosis. Small Schmorl 's node along the inferior endplate of L4. IMPRESSION: 1. Diffuse hepatic steatosis. No acute intra-abdominal process. Reviewed, dictated and finalized at location A.
[2020-11-25 21:22] VITALS: BP 171/99; PULSE 103; RESP 20; TEMP 36.1; O2SAT 97
[2020-11-25 21:43] LABS: Basophils Percent Auto 0.3 % (0.2-1.2); Eosinophils Percent Auto 0.1 % (0-4.4); Immature Granulocyte Absolute 0.03 K/mm3 (0.00-0.031); Immature Granulocyte Percent A 0.2 % (0-0.5); Lymphocytes Percent Auto 14.4 % (18.3-44.2); Mean Corpuscular HGB Conc 32.7 g/dl (32-36); Mean Corpuscular Hemoglobin 30.7 pg (26-34); Mean Corpuscular Volume 93.9 fl (80-100); Mean Platelet Volume 9.4 fl (7.4-10.4); Monocytes Absolute Auto 1.2 K/mm3 (0.1-0.6); Monocytes Percent Auto 8.8 % (2.6-8.5); Neutrophils Percent Auto 76.2 % (45.5-73.1); Platelet Count Result 310 k/mm3 (150-375); Red Blood Count 5.22 M/mm3 (4.2-5.4); Red Cell Distribution Width 13.7 % (11.5-14.5); White Blood Count 13.2 K/mm3 (4.5-10.0)
[2020-11-25 21:55] LABS: Alanine Aminotransferase 56 U/L (4-35); Albumin Level 4.7 g/dL (3.5-5.1); Alkaline Phosphatase 115 U/L (38-126); Anion Gap 9 mmol/L (8-16); Aspartate Amino Transferase 71 U/L (14-36); Bilirubin,Total 0.6 mg/dL (0.2-1.3); Blood Urea Nitrogen 7 mg/dL (7-17); Calcium 9.4 mg/dL (8.4-10.2); Carbon Dioxide 32 mmol/L (22-30); Chloride 102 mmol/L (98-107); Estimated CRCL calculation 151 ml/min; Estimated Glomerular Filt Rate > 60; Glucose 128 mg/dL (65-105); Lipase 99 U/L (23-300); Potassium 3.7 mmol/L (3.4-5.0); Sodium 143 mmol/L (137-145)
--- NOTE | 2020-11-25 22:02 | ED.GENADULT ---
HPI - General Adult General Chief complaint: Nausea/Vomiting/Diarrhea Stated complaint: n/v/d, shaking, clammy Time Seen by Provider: 11/25/20 21:32 Source: patient and RN notes reviewed Mode of arrival: ambulatory History of Present Illness HPI narrative: Patient is 35 years old white female presents with nausea started 3 days ago, today patient developed frequent vomiting and frequent diarrhea with diffuse abdominal pain. Patient had the second dose of [employer] COVID-19 vaccine 2 days ago.. Patient denies any fever, chills, chest pain, shortness of breath, or headache Related Data Home Medications Medication Instructions Recorded Confirmed cyclobenzaprine 10 mg PO TID PRN 02/28/20 02/28/20 divalproex [Depakote ER] 500 mg PO TID 02/28/20 02/28/20 gabapentin 600 mg PO DIRECTED PRN 02/28/20 02/28/20 quetiapine [Seroquel] 100 mg PO HS 02/28/20 02/28/20 sertraline [Zoloft] 100 mg PO DAILY 02/28/20 02/28/20 Allergies Allergy/AdvReac Type Severity Reaction Status Date / Time adhesive Allergy Unknown RASH Verified 11/25/20 21:25 codeine Allergy Unknown Anaphylaxis Verified 11/25/20 21:25 levofloxacin AdvReac Unknown Nausea and Verified 11/25/20 21:25 Vomiting Penicillins AdvReac Unknown Unknown Verified 11/25/20 21:25 Review of Systems Review of Systems: Narrative: CONSTITUTIONAL: Denies fever, chills, or sweats. EYES: Denies visual changes, redness, or discharge. ENT: Denies rhinorrhea, congestion, sore throat, or otalgia. CARDIOVASCULAR: Denies chest pain, palpitations, or edema. RESPIRATORY: Denies cough or dyspnea. GASTROINTESTINAL: Denies abdominal pain, nausea, vomiting, or diarrhea. GENITOURINARY: Denies dysuria or hematuria. SKIN: Denies rash or itching. MUSCULOSKELETAL: Denies back pain, joint pain, or myalgia. NEUROLOGIC: Denies headache, numbness, or weakness. PSYCHIATRIC: Denies anxiety or depression. [facility] Past Medical History Medical History (Updated 11/25/20 @ 23:52 by Sathya Kirk MD) Anemia Anxiety Arthritis Bipolar disorder Borderline personality disorder Degenerative arthritis Dependent personality disorder Depression Disc herniation GERD (gastroesophageal reflux disease) HTN (hypertension) Migraines Obsessive compulsive personality disorder PCOS (polycystic ovarian syndrome) Petit mal epilepsy Previous known suicide attempt Schizophrenia Sleep apnea UTI (urinary tract infection) Surgical History Surgical History History of bunionectomy History of colonoscopy Hx of foot surgery repair of bunionectomy Hx of spinal surgery Family History Family History Father Depression Multiple sclerosis Diabetes mellitus Mother Hypertension Diabetes mellitus Social History Social History Social History: Ms. Howell lives at home with her mother and stepfather. 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 She wishes to be a full code. She has designated her mother, Rossy Rodgers, as her surrogate decision maker. She is a non-smoker. She reports occasional cannabis use. She denies other illicit substance use. She reports that she drinks wine socially on occasion. Smoking status: Never smoker Alcohol intake: current Drinks per week: 1 Substance use type: marijuana Other substance usage details: Infrequent, for pain and anxiety Additional occupation/education comments: [employer] Gender identity (if verbalized by the patient): Female Spiritual care concerns: No Exam Narrative: Exam Narrative: General appearance: Well-developed, well-nourished, no family member at the bedside, holding vomiting bag and hands, and standing position with severe dry heaves Skin: Normal color Head: Normocephalic, nontraumatic Eyes: Clear conjunctiva ENT: Oropharynx normal, ears normal, nose normal
[2020-11-25] MEDS: ONDANSETRON INJ 4 MG/2 ML VIAL IV PUSH ×2 (22:25→23:43)
[2020-11-25] MEDS: MORPHINE SULFATE (*CRX) 4 MG/ML INJ IV PUSH (22:25)
[2020-11-25] MEDS: SODIUM CHLORIDE 0.9% IV 1,000 ML 999 ML IV CONT (22:25)
[2020-11-25 23:11] LABS: Add Urine Microscopic? YES; Appearance Urine Cloudy (Clear); Bacteria Urine Trace /hpf; Bilirubin Urine Negative (Negative); Blood Urine Negative (Negative); Color Urine Amber (Yellow); Glucose Urine UA Negative (Negative); Ketones Urine Trace mg/dL (Negative); Leukocyte Esterase Ur Negative LEU/UL (Negative); Mucus Urine Heavy /lpf; Nitrate Urine Negative (Negative); Protein Urine 2+ mg/dL (Negative); RBC Urine 0-2 /hpf (0-2); Specific Grav Ur 1.027 (1.001-1.035); Squamous Epithelial Cell Urine Moderate /hpf (Few); WBC Urine 0-3 /hpf
--- NOTE | 2020-11-26 00:19 | PC.NURSE ---
pt given water after second dose of zofran, pt reports no new episodes of emesis. pt instructed that she will be d/c w/ prescription for zofran.
[2020-11-26 00:25] VITALS: BP 155/78; PULSE 95; RESP 18; O2SAT 100
== END 2020-11-26 00:27 | disposition home or self-care (01) ==
PROVIDERS: Emergency Provider Emergency Medicine; PCP Family Medicine
DX: K52.9 Noninfective gastroenteritis and colitis, unspecified (principal); K21.9 Gastro-esophageal reflux disease without esophagitis; I10 Essential (primary) hypertension; E28.2 Polycystic ovarian syndrome; G40.A09 Absence epileptic syndrome, not intractable, without status epilepticus; F41.9 Anxiety disorder, unspecified; F31.9 Bipolar disorder, unspecified; F60.3 Borderline personality disorder; F60.7 Dependent personality disorder; F42.9 Obsessive-compulsive disorder, unspecified; F20.9 Schizophrenia, unspecified; M19.90 Unspecified osteoarthritis, unspecified site; Z87.440 Personal history of urinary (tract) infections; G47.30 Sleep apnea, unspecified; Z86.2 Personal history of diseases of the blood and blood-forming organs and certain disorders involving the immune mechanism
CPT/HCPCS: 36415; 74160; 80053; 81001; 81025; 83690; 85025; 96361; 96374; 96375; 96376; 99284; J2270; J2405; J7030; Q9967

== ENCOUNTER 2020-12-15 12:22 | Emergency (ER) | payer OTHER, SELFPAY ==
[2020-12-15 12:34] VITALS: BP 150/114; PULSE 92; RESP 18; TEMP 36.2; O2SAT 98
[2020-12-15] MEDS: LIDOCAINE 5% PATCH 1 PATCH TRANSDERM (14:06)
[2020-12-15] MEDS: METAXALONE 800 MG TABLET PO (14:06)
[2020-12-15] MEDS: KETOROLAC (*BKC) 60 MG/2 ML VIAL IM (14:08)
--- NOTE | 2020-12-15 14:26 | ED.BACK ---
HPI - Back Pain/Injury General Chief Complaint: Back Pain/Injury <ROBBIE Vidales Last Filed: 12/15/20 14:33> Stated Complaint: BACK PAIN <ROBBIE Vidales Last Filed: 12/15/20 14:33> Time Seen by Provider: 12/15/20 12:26 <ROBBIE Vidales Last Filed: 12/15/20 14:33> Source: patient <ROBBIE Vidales Last Filed: 12/15/20 14:33> Mode of arrival: ambulatory <ROBBIE Vidales Last Filed: 12/15/20 14:33> Limitations: no limitations <ROBBIE Vidales Last Filed: 12/15/20 14:33> History of Present Illness HPI Narrative: Patient a 35-year-old female who presents to emergency department for evaluation of low back pain that extends down the left leg with history of bulging disks and sciatica managed by primary care has a surgery of the left knee planned for Friday so they were unable to give her her the Medrol dose pack she typically takes did see her primary care in the recent days and had Toradol and steroid shot which helped minimally patient normally takes tramadol and Flexeril at home as well as gabapentin. Patient denies injury or trauma. Pain is worse with weightbearing and activity and movement. Pain is localized to the left SI joint. <Lenny Ríos PA-C - Last Filed: 12/15/20 14:33> Related Data Home Medications: Home Medications Medication Instructions Recorded Confirmed cyclobenzaprine 10 mg PO TID PRN 02/28/20 02/28/20 divalproex [Depakote ER] 500 mg PO TID 02/28/20 02/28/20 gabapentin 600 mg PO DIRECTED PRN 02/28/20 02/28/20 quetiapine [Seroquel] 100 mg PO HS 02/28/20 02/28/20 sertraline [Zoloft] 100 mg PO DAILY 02/28/20 02/28/20 <ROBBIE Vidales Last Filed: 12/15/20 14:33> Allergies/Adverse Reactions: Allergies Allergy/AdvReac Type Severity Reaction Status Date / Time adhesive Allergy Unknown RASH Verified 11/25/20 21:25 codeine Allergy Unknown Anaphylaxis Verified 11/25/20 21:25 levofloxacin AdvReac Unknown Nausea and Verified 11/25/20 21:25 Vomiting Penicillins AdvReac Unknown Unknown Verified 11/25/20 21:25 carisoprodol AdvReac Nausea Verified 12/15/20 14:04 morphine AdvReac Headache Verified 12/15/20 14:05 <Lenny Ríos PA-C - Last Filed: 12/15/20 14:33> Review of Systems Review of Systems: All systems reviewed & are unremarkable except as noted in HPI and below <Lenny Ríos PA-C - Last Filed: 12/15/20 14:33> [facility] Past Medical History Medical History: Medical History (Updated 12/15/20 @ 14:32 by Lenny Ríos PA-C) Anemia Anxiety Arthritis Bipolar disorder Borderline personality disorder Degenerative arthritis Dependent personality disorder Depression Disc herniation GERD (gastroesophageal reflux disease) HTN (hypertension) Migraines Obsessive compulsive personality disorder PCOS (polycystic ovarian syndrome) Petit mal epilepsy Previous known suicide attempt Schizophrenia Sleep apnea UTI (urinary tract infection) <Lenny Ríos PA-C - Last Filed: 12/15/20 14:33> Surgical History Surgical History: Surgical History History of bunionectomy History of colonoscopy Hx of foot surgery repair of bunionectomy Hx of spinal surgery <Lenny Ríos PA-C - Last Filed: 12/15/20 14:33> Family History Family History: Family History Father Depression Multiple sclerosis Diabetes mellitus Mother Hypertension Diabetes mellitus <Lenny Ríos PA-C - Last Filed: 12/15/20 14:33> Social History Social History: Social History Social History: Ms. Howell lives at home with her mother and stepfather. 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 She wishes to be a full code. She has designated her mother, Rossy Rodgers, as her surrogate
== END 2020-12-15 14:38 | disposition home or self-care (01) ==
PROVIDERS: Emergency Provider General Practice; PCP Family Medicine
DX: M54.42 Lumbago with sciatica, left side (principal); M19.90 Unspecified osteoarthritis, unspecified site; K21.9 Gastro-esophageal reflux disease without esophagitis; I10 Essential (primary) hypertension; E28.2 Polycystic ovarian syndrome; G40.909 Epilepsy, unspecified, not intractable, without status epilepticus; Z87.440 Personal history of urinary (tract) infections; G47.30 Sleep apnea, unspecified; F31.9 Bipolar disorder, unspecified; F60.3 Borderline personality disorder; F20.9 Schizophrenia, unspecified; F42.9 Obsessive-compulsive disorder, unspecified
CPT/HCPCS: 96372; 99283; A9270; J1885

== ENCOUNTER 2021-07-30 17:53 | Emergency (ER) | payer OTHER, SELFPAY ==
--- NOTE | ~2021-07-30 | CT_ITS ---
EXAMINATION: CT abdomen pelvis w con DATE: 07/30/2021 22:48 INDICATION: Left-sided abdominal pain TECHNIQUE: Computed tomography (CT) of the abdomen and pelvis was performed with 100 cc Omnipaque 350 intravenous contrast. The dose-length product was 1589.92 mGy-cm. Automated exposure control and ite rative reconstruction technique were employed. COMPARISON: CT dated 11/25/2020. FINDINGS: Lung bases are unremarkable. No significant pleural or pericardial effusion. Heart size nor mal. No significant vascular abnormality. No lymphadenopathy. Nonobstructive bowel gas pattern. No fr ee air or free fluid. Fatty infiltration of the liver. The spleen, pancreas, adrenal glands and kidne ys are unremarkable. No hydronephrosis. No abnormal pelvic masses or fluid collections. Mild lumbar s pondylosis. IMPRESSION: 1. No acute abdominal abnormality. Reviewed, dictated and finalized at location A. H GRINDER
[2021-07-30 17:59] VITALS: BP 148/93; PULSE 106; RESP 16; TEMP 36.6; O2SAT 100
[2021-07-30 18:32] LABS: Basophils Percent Auto 0.6 % (0.2-1.2); Eosinophils Absolute Auto 0.1 K/mm3 (0-0.3); Eosinophils Percent Auto 0.9 % (0-4.4); Hematocrit 43.8 % (37.0-47.0); Hemoglobin 14.4 g/dL (12.0-15.0); Immature Granulocyte Absolute 0.02 K/mm3 (0.00-0.031); Immature Granulocyte Percent A 0.3 % (0-0.5); Lymphocytes Absolute Auto 2.03 K/mm3 (0.9-3.2); Lymphocytes Percent Auto 31.8 % (18.3-44.2); Mean Corpuscular HGB Conc 32.9 g/dl (32-36); Mean Corpuscular Hemoglobin 30.4 pg (26-34); Mean Corpuscular Volume 92.4 fl (80-100); Mean Platelet Volume 9.4 fl (7.4-10.4); Monocytes Absolute Auto 0.4 K/mm3 (0.1-0.6); Monocytes Percent Auto 5.8 % (2.6-8.5); Neutrophils Absolute Auto 3.9 K/mm3 (1.3-6.7); Neutrophils Percent Auto 60.6 % (45.5-73.1); Platelet Count Result 295 k/mm3 (150-375); Red Blood Count 4.74 M/mm3 (4.2-5.4); Red Cell Distribution Width 13.9 % (11.5-14.5); White Blood Count 6.4 K/mm3 (4.5-10.0)
[2021-07-30 18:41] LABS: Add Urine Microscopic? YES; Appearance Urine Cloudy (Clear); Bacteria Urine Trace /hpf; Bilirubin Urine Negative (Negative); Blood Urine Negative (Negative); Color Urine Amber (Yellow); Glucose Urine UA Negative (Negative); Ketones Urine Negative (Negative); Leukocyte Esterase Ur 1+ LEU/UL (Negative); Mucus Urine Heavy /lpf; Nitrate Urine Negative (Negative); Protein Urine 1+ mg/dL (Negative); Specific Grav Ur 1.026 (1.001-1.035); Squamous Epithelial Cell Urine Occasional /hpf (Few); Urobilinogen Urine Negative mg/dL (<2.0)
[2021-07-30 18:51] LABS: Alanine Aminotransferase 46 U/L (4-35); Albumin Level 4.4 g/dL (3.5-5.1); Alkaline Phosphatase 126 U/L (38-126); Anion Gap 8 mmol/L (8-16); Aspartate Amino Transferase 65 U/L (14-36); Bilirubin,Total 0.5 mg/dL (0.2-1.3); Blood Urea Nitrogen 6 mg/dL (7-17); Calcium 9.8 mg/dL (8.4-10.2); Carbon Dioxide 32 mmol/L (22-30); Chloride 101 mmol/L (98-107); Estimated Glomerular Filt Rate > 60; Glucose 173 mg/dL (65-110); Lipase 90 U/L (23-300); Potassium 3.8 mmol/L (3.4-5.0); Sodium 141 mmol/L (137-145)
[2021-07-30 21:00] VITALS: BP 135/65; PULSE 89; RESP 18; TEMP 36.8; O2SAT 98
--- NOTE | 2021-07-30 21:08 | ED.NAVMDI ---
HPI - Nausea/Vomiting/Diarrhea General Chief complaint: Nausea/Vomiting/Diarrhea Stated complaint: diarrhea Time Seen by Provider: 07/30/21 21:07 Source: patient Mode of arrival: ambulatory Limitations: no limitations History of Present Illness HPI Narrative: The patient is a 36 year old female with complex PMH, notable for degenerative lumbar disease, migraines, PCOS, bipolar disorder, MDD/OCD, and borderline personality disorder, hx of petit mal seizure disorder presenting for evaluation of multiple symptoms. Patient states that since June she has intermittently had dizziness, lightheadedness, nausea, vomiting, diarrhea. She reports rhinorrhea and dry cough. She denies any chest pain, shortness of breath, headache or vision changes. Patient states she has been intermittently dizzy while driving. She denies any focal weakness or numbness. She presented here tonight because she was concerned given the numerous episodes of nausea, vomiting she has had. She also reports a burning sensation to her left flank. She denies any dysuria, hematuria or frequency. States that she has had some discoloration to vaginal discharge but denies any vaginal bleeding. Patient denies any recent sexual activity. States she has a history of bacterial vaginosis. Related Data Home Medications Medication Instructions Recorded Confirmed cyclobenzaprine 10 mg PO TID PRN 02/28/20 02/28/20 divalproex [Depakote ER] 500 mg PO TID 02/28/20 02/28/20 gabapentin 600 mg PO DIRECTED PRN 02/28/20 02/28/20 quetiapine [Seroquel] 100 mg PO HS 02/28/20 02/28/20 sertraline [Zoloft] 100 mg PO DAILY 02/28/20 02/28/20 Allergies Allergy/AdvReac Type Severity Reaction Status Date / Time adhesive Allergy Unknown RASH Verified 07/30/21 21:05 codeine Allergy Unknown Anaphylaxis Verified 07/30/21 21:05 levofloxacin AdvReac Unknown Nausea and Verified 07/30/21 21:05 Vomiting Penicillins AdvReac Unknown Unknown Verified 07/30/21 21:05 carisoprodol AdvReac Nausea Verified 07/30/21 21:05 morphine AdvReac Headache Verified 07/30/21 21:05 Review of Systems Review of Systems: CONSTITUTIONAL: Denies fever, chills, or sweats. EYES: Denies visual changes, redness, or discharge. ENT: Reports rhinorrhea and congestion without sore throat, or otalgia. CARDIOVASCULAR: Denies chest pain, palpitations, or edema. RESPIRATORY: Reports dry cough without dyspnea. GASTROINTESTINAL: Reports left-sided abdominal pain, nausea, vomiting, diarrhea GENITOURINARY: Denies dysuria or hematuria. Reports vaginal discharge. SKIN: Denies rash or itching. MUSCULOSKELETAL: Reports left-sided flank pain NEUROLOGIC: Denies headache, numbness, or weakness. Reports intermittent dizziness, denies current dizziness. PSYCHIATRIC: Reports history of depression [facility] Past Medical History Medical History (Updated 07/30/21 @ 23:32 by Sarah Redmond MD) Anemia Anxiety Arthritis Bipolar disorder Borderline personality disorder Degenerative arthritis Dependent personality disorder Depression Disc herniation GERD (gastroesophageal reflux disease) HTN (hypertension) Migraines Obsessive compulsive personality disorder PCOS (polycystic ovarian syndrome) Petit mal epilepsy Previous known suicide attempt Schizophrenia Sleep apnea UTI (urinary tract infection) Surgical History Surgical History History of bunionectomy History of colonoscopy Hx of foot surgery repair of bunionectomy Hx of spinal surgery Family History Family History Father Depression Multiple sclerosis Diabetes mellitus Mother Hypertension Diabetes mellitus Social History Social History Social History: Ms. Howell lives at home with her mother and stepfather. 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 She wishes to be a fu
[2021-07-30 21:37] VITALS: BP 152/90; PULSE 96; RESP 18; O2SAT 98
[2021-07-30] MEDS: SODIUM CHLORIDE 0.9% IV 1,000 ML 999 ML IV CONT (22:26)
--- NOTE | 2021-07-30 22:30 | PC.NURSE ---
Pt off floor to CT scan
[2021-07-30] MEDS: ONDANSETRON INJ 4 MG/2 ML VIAL IV PUSH (22:53)
--- NOTE | 2021-07-30 23:32 | ECG_ITS ---
Measurements Intervals [place] Rate: 90 P: 60 VA: 199 QRS: 25 QRSD: 102 T: 40 QT: 357 QTc: 438 Interpretive Statements SINUS RHYTHM CONSIDER INFERIOR INFARCT, AGE INDETERMINATE ABNORMAL ECG Electronically Signed On 07-31-2021 6:37:00 SENIOR [employer] WE[employer] DEVELOPER by Flako Palm D.O.
[2021-07-30 23:34] VITALS: BP 153/84; PULSE 89; RESP 16; O2SAT 98
[2021-07-31 17:55] LABS: SARS-CoV-2 RNA PCR Negative
== END 2021-07-31 00:15 | disposition home or self-care (01) ==
PROVIDERS: Emergency Medicine; Emergency Provider Emergency Medicine; PCP Family Medicine
DX: K52.9 Noninfective gastroenteritis and colitis, unspecified (principal); Z20.822 Contact with and (suspected) exposure to COVID-19; G40.909 Epilepsy, unspecified, not intractable, without status epilepticus; I10 Essential (primary) hypertension; E28.2 Polycystic ovarian syndrome; K21.9 Gastro-esophageal reflux disease without esophagitis; M51.36 Other intervertebral disc degeneration, lumbar region; M19.90 Unspecified osteoarthritis, unspecified site; F31.9 Bipolar disorder, unspecified; F42.9 Obsessive-compulsive disorder, unspecified; F60.3 Borderline personality disorder; F41.9 Anxiety disorder, unspecified; Z87.440 Personal history of urinary (tract) infections; R94.31 Abnormal electrocardiogram [ECG] [EKG]; R10.9 Unspecified abdominal pain; N89.8 Other specified noninflammatory disorders of vagina
CPT/HCPCS: 36415; 74177; 80053; 81001; 81025; 83690; 85025; 87070; 87086; 87088; 87110; 87140; 87491; 87591; 87808; 93005; 96361; 96374; 99284; C9803; J2405; J7030; Q9967; U0003; U0005

== ENCOUNTER 2021-12-13 18:16 | Emergency (ER) | payer OTHER, SELFPAY ==
--- NOTE | ~2021-12-13 | XR_ITS ---
XR chest 2V DATE: 12/13/2021 19:00 INDICATION: Cough, dizziness, confusion. Hyperglycemia. History of hypertension. TECHNIQUE: PA and lateral views COMPARISON: 02/28/2020 PA chest FINDINGS: Normal heart size. No hilar or mediastinal enlargement. No pulmonary infiltrate or consolidation, pleural effusion or pulmonary vascular congestion or pneumo thorax. Dextroscoliosis of the thoracic spine. Diffuse osteopenia. IMPRESSION: No active cardiopulmonary disease Reviewed, dictated and finalized at location A.
[2021-12-13 18:25] VITALS: BP 178/114; PULSE 113; RESP 20; TEMP 37.7; O2SAT 97
[2021-12-13 18:28] LABS: Glucose Point of Care 441 mg/dl (65-105)
[2021-12-13] MEDS: SODIUM CHLORIDE 0.9% IV 1,000 ML 999 ML IV CONT ×2 (18:45→20:23)
[2021-12-13 18:54] LABS: Basophils Absolute Auto 0.1 K/mm3 (0.0-0.1); Basophils Percent Auto 0.8 % (0.2-1.2); Eosinophils Percent Auto 0.3 % (0-4.4); Hematocrit 44.6 % (37.0-47.0); Immature Granulocyte Absolute 0.02 K/mm3 (0.00-0.031); Immature Granulocyte Percent A 0.3 % (0-0.5); Lymphocytes Absolute Auto 2.18 K/mm3 (0.9-3.2); Lymphocytes Percent Auto 32.9 % (18.3-44.2); Mean Corpuscular HGB Conc 33.6 g/dl (32-36); Mean Corpuscular Volume 89.2 fl (80-100); Mean Platelet Volume 9.9 fl (7.4-10.4); Monocytes Absolute Auto 0.6 K/mm3 (0.1-0.6); Monocytes Percent Auto 8.4 % (2.6-8.5); Neutrophils Absolute Auto 3.8 K/mm3 (1.3-6.7); Neutrophils Percent Auto 57.3 % (45.5-73.1); Platelet Count Result 276 k/mm3 (150-375); Red Cell Distribution Width 13.3 % (11.5-14.5); White Blood Count 6.6 K/mm3 (4.5-10.0)
--- NOTE | 2021-12-13 18:55 | PC.NURSE ---
pt to xray via stretcher
[2021-12-13 19:03] LABS: Alanine Aminotransferase 68 U/L (4-35); Albumin Level 4.7 g/dL (3.5-5.1); Alkaline Phosphatase 164 U/L (38-126); Anion Gap 10 mmol/L (8-16); Aspartate Amino Transferase 121 U/L (14-36); Bilirubin,Total 0.4 mg/dL (0.2-1.3); Blood Urea Nitrogen 10 mg/dL (7-17); Calcium 10.2 mg/dL (8.4-10.2); Carbon Dioxide 28 mmol/L (22-30); Chloride 98 mmol/L (98-107); Estimated CRCL calculation 172 ml/min; Estimated Glomerular Filt Rate > 60; Glucose 399 mg/dL (65-110); Potassium 3.9 mmol/L (3.4-5.0); Sodium 136 mmol/L (137-145)
[2021-12-13 19:04] LABS: Add Urine Microscopic? YES; Appearance Urine Clear (Clear); Bilirubin Urine Negative (Negative); Blood Urine Negative (Negative); Color Urine Straw (Yellow); Glucose Urine UA 3+ mg/dL (Negative); Ketones Urine Negative (Negative); Leukocyte Esterase Ur Negative LEU/UL (Negative); Nitrate Urine Negative (Negative); Protein Urine Negative (Negative); Squamous Epithelial Cell Urine Rare /hpf (Few); Urobilinogen Urine Negative mg/dL (<2.0)
[2021-12-13 19:05] LABS: Specific Grav Ur 1.032 (1.001-1.035)
[2021-12-13 19:32] LABS: Influenza A QL RT-PCR Negative (Negative); Influenza B QL RT-PCR Negative (Negative); SARS-CoV-2 RNA PCR Negative
[2021-12-13 19:58] VITALS: BP 161/98; PULSE 65; RESP 16; O2SAT 98
[2021-12-13 20:07] LABS: Glucose Point of Care 294 mg/dl (65-105)
--- NOTE | 2021-12-13 20:46 | ED.GENADULT ---
HPI - General Adult General Chief complaint: Unspecified Stated complaint: high blood sugar Time Seen by Provider: 12/13/21 18:22 History of Present Illness HPI narrative: Patient is a 36-year-old female who presents ER with elevated blood sugar. Reports that it runs high when she has an infection. She reports she started feeling fatigued and having some elevated temperatures 2 days ago. Reports runny nose sore throat and cough. Cough nonproductive. Reports chronic body aches have not recently changed. Had Covid in August 2021. No chest pain or chest pressure. Denies urinary frequency urgency or dysuria. No abdominal discomfort or diarrhea. Reports that she has been taking her long-acting insulin but has not been taking her Metformin. Related Data Home Medications Medication Instructions Recorded Confirmed cyclobenzaprine 10 mg PO TID PRN 02/28/20 02/28/20 divalproex [Depakote ER] 500 mg PO TID 02/28/20 02/28/20 gabapentin 600 mg PO DIRECTED PRN 02/28/20 02/28/20 quetiapine [Seroquel] 100 mg PO HS 02/28/20 02/28/20 sertraline [Zoloft] 100 mg PO DAILY 02/28/20 02/28/20 Allergies Allergy/AdvReac Type Severity Reaction Status Date / Time adhesive Allergy Unknown RASH Verified 07/30/21 21:05 codeine Allergy Unknown Anaphylaxis Verified 07/30/21 21:05 levofloxacin AdvReac Unknown Nausea and Verified 07/30/21 21:05 Vomiting Penicillins AdvReac Unknown Unknown Verified 07/30/21 21:05 carisoprodol AdvReac Nausea Verified 07/30/21 21:05 morphine AdvReac Headache Verified 07/30/21 21:05 Review of Systems Review of Systems: All systems reviewed & are unremarkable except as noted in HPI and below Constitutional: Constitutional: Denies chills, Reports fever(s) and Reports weakness ENT: Reports nasal congestion and Reports sore throat Cardiovascular: Cardiovascular: Denies chest pain, Denies radiating jaw, neck or arm pain and Denies palpitations Respiratory: Respiratory: Reports cough, Denies dyspnea and Denies wheezing Gastrointestinal: Gastrointestinal: Denies abdominal pain, Denies diarrhea, Denies nausea and Denies vomiting Genitourinary: Genitourinary: Denies dysuria, Denies pelvic pain and Denies flank pain Musculoskeletal: Musculoskeletal: Denies myalgias and Denies muscle cramps PMF Past Medical History Medical History (Updated 12/13/21 @ 21:44 by Clem Lugo MD) Anemia Anxiety Arthritis Bipolar disorder Borderline personality disorder Degenerative arthritis Dependent personality disorder Depression Disc herniation GERD (gastroesophageal reflux disease) HTN (hypertension) Migraines Obsessive compulsive personality disorder PCOS (polycystic ovarian syndrome) Petit mal epilepsy Previous known suicide attempt Schizophrenia Sleep apnea UTI (urinary tract infection) Surgical History Surgical History History of bunionectomy History of colonoscopy Hx of foot surgery repair of bunionectomy Hx of spinal surgery Family History Family History Father Depression Multiple sclerosis Diabetes mellitus Mother Hypertension Diabetes mellitus Social History Social History Social History: Ms. Howell lives at home with her mother and stepfather. 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 She wishes to be a full code. She has designated her mother, Rossy Rodgers, as her surrogate decision maker. She is a non-smoker. She reports occasional cannabis use. She denies other illicit substance use. She reports that she drinks wine socially on occasion. 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
[2021-12-13 21:39] LABS: Glucose Point of Care 216 mg/dl (65-105)
[2021-12-13 22:02] VITALS: BP 168/88; PULSE 78; RESP 18; O2SAT 98
== END 2021-12-13 22:03 | disposition home or self-care (01) ==
PROVIDERS: Emergency Provider Emergency Medicine; PCP Family Medicine
DX: B34.9 Viral infection, unspecified (principal); E11.65 Type 2 diabetes mellitus with hyperglycemia; Z20.822 Contact with and (suspected) exposure to COVID-19; E28.2 Polycystic ovarian syndrome; M19.90 Unspecified osteoarthritis, unspecified site; G40.802 Other epilepsy, not intractable, without status epilepticus; F41.9 Anxiety disorder, unspecified; F31.9 Bipolar disorder, unspecified; F20.9 Schizophrenia, unspecified; F60.7 Dependent personality disorder; T38.3X6A Underdosing of insulin and oral hypoglycemic [antidiabetic] drugs, initial encounter; Z91.14 Patient's other noncompliance with medication regimen; Z86.2 Personal history of diseases of the blood and blood-forming organs and certain disorders involving the immune mechanism; Z79.4 Long term (current) use of insulin; Z86.16 Personal history of COVID-19; Z87.440 Personal history of urinary (tract) infections
CPT/HCPCS: 36415; 71046; 80053; 81001; 82948; 85025; 87502; 96360; 96361; 99283; C9803; J7030; U0003; U0005

== ENCOUNTER 2022-05-04 17:07 | Emergency (ER) | payer OTHER, SELFPAY ==
[2022-05-04 17:09] VITALS: BP 151/94; PULSE 101; RESP 18; TEMP 36.3; O2SAT 98
--- NOTE | 2022-05-04 17:22 | PC.NURSE ---
EDP Toby and ED charge nurse Ellie notified of [place] [facility] while in triage. Patient states she currently gets evaluated by [facility] mental health and sees a therapists and is currently having changes in her medications. Patient states she did attempt to harm herself a couple weeks ago. Patient has been having thoughts in the past month of harming herself, but not at this time and has no intentions of acting on them currently. Per EDP, do not initiate suicide precautions at this time.
--- NOTE | 2022-05-04 17:47 | PC.NURSE ---
PT states she is in a program at [facility] and was told to come and get checked out for foot and mouth disease. Pt states she is not here for her mental status and currently has no SI. She states she is on new medication and feels better but currently has pain in her mouth.
[2022-05-04] MEDS: BELLADONNA ALK/PHENOB ELIX 10 ML, MAG HYDROX/ALUMINUM HYD/SIMETH 30 ML, LIDOCAINE HCL 2... PO (18:45)
--- NOTE | 2022-05-04 18:59 | ED.GENADULT ---
HPI - General Adult General Chief complaint: Dental/Oral Stated complaint: blisters in mouth Time Seen by Provider: 05/04/22 17:42 History of Present Illness HPI narrative: Patient is a 37-year-old female who presents ER with concerns of having ljrh-unob-evl-mouth disease. She noticed some sores on her tongue and intraoral aspect of her mouth today. Her father had similar symptoms a few days ago when she was around them. She has no fevers or chills or sweats. No chest pain or chest pressure. She needs to know whether or not she has echv-cplr-trd-mouth so she can go to a psychiatric treatment center chest not. She is not currently suicidal and has no intent to harm herself or others. Related Data Home Medications Medication Instructions Recorded Confirmed cyclobenzaprine 10 mg tablet 10 mg PO TID PRN Muscle Pain 02/28/20 02/28/20 divalproex 500 mg tablet,extended 500 mg PO TID 02/28/20 02/28/20 release 24 hr (Depakote ER) gabapentin 600 mg tablet 600 mg PO DIRECTED PRN Pain 02/28/20 02/28/20 quetiapine 100 mg tablet (Seroquel) 100 mg PO HS 02/28/20 02/28/20 sertraline 100 mg tablet (Zoloft) 100 mg PO DAILY 02/28/20 02/28/20 Allergies Allergy/AdvReac Type Severity Reaction Status Date / Time adhesive Allergy Unknown RASH Verified 07/30/21 21:05 codeine Allergy Unknown Anaphylaxis Verified 07/30/21 21:05 levofloxacin AdvReac Unknown Nausea and Verified 07/30/21 21:05 Vomiting Penicillins AdvReac Unknown Unknown Verified 07/30/21 21:05 carisoprodol AdvReac Nausea Verified 07/30/21 21:05 morphine AdvReac Headache Verified 07/30/21 21:05 Review of Systems Review of Systems: All systems reviewed & are unremarkable except as noted in HPI and below Constitutional: Constitutional: Denies chills, Denies fatigue and Denies fever(s) ENT: Reports sore throat Comments: Sores in mouth Cardiovascular: Cardiovascular: Denies chest pain, Denies rapid heart rate and Denies radiating jaw, neck or arm pain Respiratory: Respiratory: Denies cough and Denies dyspnea Gastrointestinal: Gastrointestinal: Denies abdominal pain, Denies nausea and Denies vomiting Psychiatric: Psychiatric: Denies anxiety, Reports depression, Denies homicidal ideation and Denies suicidal ideation [facility] Past Medical History Medical History (Updated 05/04/22 @ 19:02 by Clem Lugo MD) Anemia Anxiety Arthritis Bipolar disorder Borderline personality disorder Degenerative arthritis Dependent personality disorder Depression Disc herniation GERD (gastroesophageal reflux disease) HTN (hypertension) Migraines Obsessive compulsive personality disorder PCOS (polycystic ovarian syndrome) Petit mal epilepsy Previous known suicide attempt Schizophrenia Sleep apnea UTI (urinary tract infection) Surgical History Surgical History History of bunionectomy History of colonoscopy Hx of foot surgery repair of bunionectomy Hx of spinal surgery Family History Family History Father Depression Multiple sclerosis Diabetes mellitus Mother Hypertension Diabetes mellitus Social History Social History Social History: Ms. Howell lives at home with her mother and stepfather. 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 She wishes to be a full code. She has designated her mother, Rossy Rodgers, as her surrogate decision maker. She is a non-smoker. She reports occasional cannabis use. She denies other illicit substance use. She reports that she drinks wine socially on occasion. 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
== END 2022-05-04 19:16 | disposition home or self-care (01) ==
PROVIDERS: Emergency Provider Emergency Medicine; PCP Family Medicine
DX: B34.9 Viral infection, unspecified (principal); G40.A09 Absence epileptic syndrome, not intractable, without status epilepticus; I10 Essential (primary) hypertension; E28.2 Polycystic ovarian syndrome; K21.9 Gastro-esophageal reflux disease without esophagitis; F41.9 Anxiety disorder, unspecified; F31.9 Bipolar disorder, unspecified; F60.3 Borderline personality disorder; F42.9 Obsessive-compulsive disorder, unspecified; F20.9 Schizophrenia, unspecified; M19.90 Unspecified osteoarthritis, unspecified site; G47.30 Sleep apnea, unspecified; Z87.440 Personal history of urinary (tract) infections; Z86.2 Personal history of diseases of the blood and blood-forming organs and certain disorders involving the immune mechanism
CPT/HCPCS: 36415; 86658; 99281; 99283; A9270

== ENCOUNTER 2023-03-07 07:36 | Outpatient (CLI) | payer OTHER, SELFPAY ==
--- NOTE | 2023-03-27 10:14 | WPDSLEEPSTUD ---
Sleep Study Date of Study: 03/07/23 Ordering Provider: Blake Kwon APRN Interpreting Physician: Tracey Ponce MD Sleep Study Type: Polysomnogram Height: 1.78 m Weight: 136.078 kg Body Mass Index: 43.0 Neck Circumference (inches): 18.5 [place]: 11 Reason for Sleep Study Hypersomnolence Sleep History Kathy Malcolm is a 38-year-old female with history of loud snoring witnessed apneas in addition to excessive daytime sleepiness who is having a polysomnogram for evaluation of obstructive sleep apnea. she has concentration difficulties, complicated home conditions, memory problems, headaches, palpitations, difficulty keeping a job. She has hypertension, depression, thyroid dysfunction, and there is a family history of sleep issues, both her mother and father have sleep apnea. She frequently awakens from sleep short of breath. She occasionally awakens at night with heartburn, belching or cough.??She always snores, and constantly snores loudly enough that others complain. She constantly has trouble sleeping when she has a cold. She frequently wakes up gasping for breath during the night, sometimes gasps for breath during the daytime as well. She constantly has breathing problems at night. She occasionally sweats excessively at night. She frequently notices her heart pounding or beating irregularly during the night. She frequently falls asleep during the day. She never falls asleep while driving. She frequently experiences loss of muscle tone with strong emotion. She never feels paralyzed on waking or falling asleep. She occasionally experiences vivid dreams upon waking or falling asleep. She never feels afraid of going to sleep. She frequently has nightmares. She constantly recalls her dreams. She constantly has thoughts racing through her mind. She frequently feels sad or depressed. She frequently feels anxiety or worry about things. She frequently notices parts of her body jerk. She occasionally kicks during the night. She occasionally feels crawling or aching feelings in her legs. She occasionally feels leg pain at night. She occasionally grinds her teeth and has morning jaw pain. She frequently feels bothered by pain during the day and occasionally is awakened by pain during the night. She frequently wakes up feeling stiff in the morning, occasionally with sore or achy muscles, occasionally with pain in the neck and spine. Normal bedtime is around Midnight, taking 30 minutes to an hour to fall asleep unless she is having a manic phase. She Gets a variable amount of time sleeping at night. She wakes at 10:00 a.m.. Her weekend schedule is the same. She is embarrassed to sleep around anybody else. She currently lives with her parents. She sometimes works split shifts. Habits:??Tobacco: Never Caffeine : 3 beverages a day Alcohol :none Recreational substances: none PMF Past Medical History Medical History Anemia Anxiety Arthritis Bipolar disorder Borderline personality disorder Degenerative arthritis Dependent personality disorder Depression Disc herniation GERD (gastroesophageal reflux disease) HTN (hypertension) Migraines Obsessive compulsive personality disorder PCOS (polycystic ovarian syndrome) Petit mal epilepsy Previous known suicide attempt Schizophrenia Sleep apnea UTI (urinary tract infection) Surgical History Surgical History History of bunionectomy History of colonoscopy Hx of foot surgery repair of bunionectomy Hx of spinal surgery Family History Family History (Updated 03/03/23 @ 10:50 by Blake Kwon APRN) Father Depression Multiple sclerosis Diabetes mellitus Mother Hypertension Diabetes mellitus Asthma Social History Social History Social History: Ms. Howell lives at home with her mother an
[2023-03-27 10:40] VITALS: BMI 43.0
== END 2023-03-08 07:57 | disposition home or self-care (01) ==
PROVIDERS: Visit Provider Nurse Practitioner Family
DX: G47.10 Hypersomnia, unspecified (principal); G47.33 Obstructive sleep apnea (adult) (pediatric)
CPT/HCPCS: 95810

== ENCOUNTER 2023-04-24 08:31 | Outpatient (CLI) | payer OTHER, SELFPAY ==
[2023-05-16 14:45] VITALS: BMI 43.7
--- NOTE | 2023-05-16 14:45 | WPDSLEEPSTUD ---
Sleep Study Date of Study: 04/24/23 Ordering Provider: Blake Kwon APRN Interpreting Physician: Tracey Ponce MD Sleep Study Type: CPAP Titration Height: 1.78 m Weight: 138.346 kg Body Mass Index: 43.7 Neck Circumference (inches): 18 [place]: 11 Reason for Sleep Study * 03/07/2023 basic nocturnal polysomnogram - severe obstructive sleep apnea, apnea-hypopnea index is 36.1 with desaturation 82% and loud continuous snoring; no REM. ?Supine AHI more severe, 80.4, compared to nonsupine index, 2.9, so she should try to?stay off of her back.??She did not meet criteria early enough in the night to have CPAP titration. She presents for a CPAP titration now. Sleep History Kathy Malcolm is a 38-year-old female with history of loud snoring witnessed apneas in addition to excessive daytime sleepiness who is having a polysomnogram for evaluation of obstructive sleep apnea.? she has concentration difficulties, complicated home conditions, memory problems, headaches, palpitations, difficulty keeping a job.? She has hypertension, depression, thyroid dysfunction, and there is a family history of sleep issues, both her mother and father have sleep apnea.? She frequently awakens from sleep short of breath. She occasionally awakens at night with heartburn, belching or cough.??She always snores,? and constantly snores loudly enough that others complain. She constantly has trouble sleeping when she has a cold. She frequently wakes up gasping for breath during the night, sometimes gasps for breath during the daytime as well. She constantly has breathing problems at night. She? occasionally sweats excessively at night. She? frequently notices her heart pounding or beating irregularly during the night. She? frequently falls asleep during the day. She? never falls asleep while driving. She? frequently experiences loss of muscle tone with strong emotion. She never feels paralyzed on waking or falling asleep. She? occasionally experiences vivid dreams upon waking or falling asleep. She? never feels afraid of going to sleep. She? frequently has nightmares. She? constantly recalls her dreams. She? constantly has thoughts racing through her mind. She? frequently feels sad or depressed. She? frequently feels anxiety or worry about things. She? frequently notices parts of her body jerk. She? occasionally kicks during the night. She? occasionally feels crawling or aching feelings in her legs. She? occasionally feels leg pain at night. She? occasionally grinds her teeth and has morning jaw pain.? She? frequently feels bothered by pain during the day and? occasionally is awakened by pain during the night. She? frequently wakes up feeling stiff in the morning, occasionally with sore or achy muscles, occasionally with pain in the neck and spine.? Normal bedtime is around ? Midnight, taking 30 minutes to an hour to fall asleep unless she is having a manic phase. She ? Gets a variable amount of time sleeping at night.? She wakes at 10:00 a.m..? Her weekend? schedule is the same.? She is embarrassed to sleep around anybody else.? She currently lives with her parents.? She sometimes works split shifts. Habits:??Tobacco:? Never ? Caffeine : 3 beverages a day? Alcohol :none? ? Recreational substances: none PMFSH Past Medical History Medical History Anemia Anxiety Arthritis Bipolar disorder Borderline personality disorder Degenerative arthritis Dependent personality disorder Depression Disc herniation GERD (gastroesophageal reflux disease) HTN (hypertension) Migraines Obsessive compulsive personality disorder PCOS (polycystic ovarian syndrome) Petit mal epilepsy Previous known suicide attempt Schizophrenia Sleep apnea UTI (urinary tract infection) Surgical History Surgical History History of bunionectomy History of colonoscopy Hx of foot surgery repair of bunionectomy
== END 2023-04-25 06:02 | disposition home or self-care (01) ==
PROVIDERS: Visit Provider Nurse Practitioner Family
DX: G47.33 Obstructive sleep apnea (adult) (pediatric) (principal)
CPT/HCPCS: 95811

== ENCOUNTER 2023-07-18 15:53 | Emergency (ER) | payer BC, OTHER, SELFPAY ==
--- NOTE | ~2023-07-18 | XR_ITS ---
EXAMINATION: XR chest 2V DATE: 07/18/2023 17:56 INDICATION: Cough. Nausea and vomiting. TECHNIQUE: Frontal and lateral views of the chest were obtained. COMPARISON: Chest 2 views 12/13/2021, CT abdomen and pelvis 07/30/2021 FINDINGS: There are airspace opacities in right upper lobe. No pleural effusion or pneumothorax. The heart is normal. IMPRESSION: 1. Airspace opacities in right upper lobe, consistent with pneumonia. Reviewed, dictated and finalized at location E. ICAL LAB CLERK
[2023-07-18 16:17] VITALS: BP 182/94; PULSE 115; RESP 22; TEMP 38.3; O2SAT 97
[2023-07-18 17:03] LABS: Influenza A QL RT-PCR Negative (Negative); Influenza B QL RT-PCR Negative (Negative); SARS-CoV-2 RNA PCR Negative (Negative)
--- NOTE | 2023-07-18 17:49 | ED.URI ---
HPI - URI/Sore Throat General Chief Complaint: Upper Respiratory Infection Stated Complaint: sore throat, couch Time Seen by Provider: 07/18/23 17:11 Source: patient Mode of arrival: ambulatory Limitations: no limitations History of Present Illness HPI Narrative: 38 year old female presents today with complaints of sore throat, productive cough with bloody sputum per patient, fever, chills, nausea, diarrhea. Denies abdominal pain but does endorse a sick contact. Has not taken any medication for her symptoms. Related Data Home Medications Medication Instructions Recorded Confirmed cyclobenzaprine 10 mg tablet 10 mg PO TID PRN Muscle Pain 02/28/20 03/03/23 divalproex 500 mg tablet,extended 500 mg PO TID 02/28/20 03/03/23 release 24 hr (Depakote ER) gabapentin 600 mg tablet 600 mg PO DIRECTED PRN Pain 02/28/20 03/03/23 diazepam 5 mg tablet (Valium) 5 mg PO QHS PRN 03/03/23 empagliflozin 10 mg tablet 10 mg PO DAILY 03/03/23 (Jardiance) hydrocodone 7.5 mg-ibuprofen 200 1 tablet PO Q4H PRN 03/03/23 mg tablet hydroxyzine pamoate 50 mg capsule 50 mg PO QID PRN 03/03/23 03/03/23 (Vistaril) quetiapine 100 mg tablet (Seroquel) 300 mg PO HS 03/03/23 03/03/23 sertraline 100 mg tablet (Zoloft) 200 mg PO DAILY 03/03/23 03/03/23 sitagliptin phosphate 50 mg tablet 50 mg PO DAILY 03/03/23 (Januvia) Allergies Allergy/AdvReac Type Severity Reaction Status Date / Time adhesive Allergy Unknown RASH Verified 07/18/23 17:06 codeine Allergy Unknown Anaphylaxis Verified 07/18/23 17:06 levofloxacin AdvReac Unknown Nausea and Verified 07/18/23 17:06 Vomiting Penicillins AdvReac Unknown Unknown Verified 07/18/23 17:06 carisoprodol AdvReac Nausea Verified 07/18/23 17:06 morphine AdvReac Headache Verified 07/18/23 17:06 Review of Systems Review of Systems: All systems reviewed & are unremarkable except as noted in HPI and below PMFSH Past Medical History Medical History (Updated 07/18/23 @ 18:42 by Bryanna Stapleton APRN) Anemia Anxiety Arthritis Bipolar disorder Borderline personality disorder Degenerative arthritis Dependent personality disorder Depression Disc herniation GERD (gastroesophageal reflux disease) HTN (hypertension) Migraines Obsessive compulsive personality disorder PCOS (polycystic ovarian syndrome) Petit mal epilepsy Previous known suicide attempt Schizophrenia Sleep apnea UTI (urinary tract infection) Surgical History Surgical History History of bunionectomy History of colonoscopy Hx of foot surgery repair of bunionectomy Hx of spinal surgery Family History Family History Father Depression Multiple sclerosis Diabetes mellitus Mother Hypertension Diabetes mellitus Asthma Social History Social History Social History: Ms. Howell lives at home with her mother and stepfather. 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 She wishes to be a full code. She has designated her mother, Rossy Rodgers, as her surrogate decision maker. She is a non-smoker. She reports occasional cannabis use. She denies other illicit substance use. She reports that she drinks wine socially on occasion. Smoking status: Never smoker Alcohol intake: current Drinks per week: 1 Substance use type: marijuana Other substance usage details: Infrequent, for pain and anxiety Living arrangements: with family Occupation/Education: occupation Additional occupation/education comments: [employer] Gender identity (if verbalized by the patient): Female Spiritual care concerns: No Exam Const: General: cooperative, healthy appearing and comfortable Orientation/consciousness: oriented to person, oriented to place, oriented to time and patient oriented x3 HENMT: Head: normal to inspection Ears:
[2023-07-18] MEDS: ACETAMINOPHEN 500 MG TABLET 1000 MG PO (17:57)
[2023-07-18] MEDS: ONDANSETRON HCL ODT 4 MG TABLET PO (17:58)
[2023-07-18 18:32] VITALS: BP 130/73; TEMP 37.7
[2023-07-18 18:34] VITALS: TEMP 37.7
[2023-07-18] MEDS: DOXYCYCLINE HYCLATE 100 MG TABLET PO (18:34)
== END 2023-07-18 18:51 | disposition home or self-care (01) ==
PROVIDERS: Emergency Medicine; Emergency Provider Nurse Practitioner Family
DX: J18.9 Pneumonia, unspecified organism (principal); I10 Essential (primary) hypertension; Z20.822 Contact with and (suspected) exposure to COVID-19
CPT/HCPCS: 71046; 87636; 99283; A9270

== ENCOUNTER 2023-11-14 05:37 | Emergency (ER) | payer OTHER, BC, SELFPAY ==
--- NOTE | ~2023-11-14 | CT_ITS ---
CT of the Abdomen and Pelvis: Indication: Abdominal pain Technique: 2.5 mm axial scans were obtained through the abdomen and pelvis following intravenous adm inistration of 100 cc of Omnipaque 350. Dose reduction technique was used on this scan by utilizing a utomated exposure control and iterative reconstruction technique. The dose-length product (DLP) was 1 618.16 mGy-cm. COMPARISON: 07/30/2021 Findings: Scans through the lung bases are unremarkable. There is diffuse hepatic steatosis. The spleen, pancreas, gallbladder, adrenals and kidneys are withi n normal limits. No evidence of aortic aneurysm. No lymphadenopathy. No bowel obstruction or bowel wall thickening. There is no evidence to suggest acute appendicitis. Images through the pelvis were performed. Urinary bladder unremarkable. No adnexal mass seen. No asci whitney. Impression: No acute abnormality. Diffuse fatty infiltration of liver. Reviewed, dictated and finalized at [facility]. SEAL Impression: No acute abnormality. Diffuse fatty infiltration of liver.
[2023-11-14 05:39] VITALS: BP 180/91; PULSE 84; RESP 17; TEMP 36.7; O2SAT 99
[2023-11-14 05:59] VITALS: BP 156/99; PULSE 78; RESP 18; O2SAT 97
[2023-11-14 06:05] LABS: Basophils Absolute Auto 0.1 K/mm3 (0.0-0.1); Basophils Percent Auto 0.7 % (0.2-1.2); Eosinophils Percent Auto 0.2 % (0-4.4); Hemoglobin 16.1 g/dL (12.0-15.0); Immature Granulocyte Absolute 0.04 K/mm3 (0.00-0.031); Immature Granulocyte Percent A 0.5 % (0-0.5); Lymphocytes Absolute Auto 3.04 K/mm3 (0.9-3.2); Mean Corpuscular HGB Conc 32.2 g/dl (32-36); Mean Corpuscular Hemoglobin 29.1 pg (26-34); Mean Corpuscular Volume 90.4 fl (80-100); Mean Platelet Volume 10.1 fl (7.4-10.4); Monocytes Absolute Auto 0.5 K/mm3 (0.1-0.6); Monocytes Percent Auto 5.9 % (2.6-8.5); Neutrophils Percent Auto 57.7 % (45.5-73.1); Platelet Count Result 233 k/mm3 (150-375); Red Blood Count 5.53 M/mm3 (4.2-5.4); Red Cell Distribution Width 13.6 % (11.5-14.5); White Blood Count 8.7 K/mm3 (4.5-10.0)
[2023-11-14 06:20] LABS: Alanine Aminotransferase 50 U/L (6-35); Albumin Level 4.7 g/dL (3.5-5.1); Alkaline Phosphatase 161 U/L (38-126); Anion Gap 13 mmol/L (8-16); Aspartate Amino Transferase 56 U/L (14-36); Bilirubin,Total 0.5 mg/dL (0.2-1.3); Blood Urea Nitrogen 14 mg/dL (7-17); Calcium 9.7 mg/dL (8.4-10.2); Carbon Dioxide 28 mmol/L (22-30); Chloride 102 mmol/L (98-107); Estimated CRCL calculation 187 ml/min; Estimated Glomerular Filt Rate > 60; Glucose 165 mg/dL (65-110); Lipase 150 U/L (23-300); Potassium 3.6 mmol/L (3.4-5.0); Sodium 143 mmol/L (137-145)
[2023-11-14 06:28] VITALS: BP 156/99; PULSE 78; RESP 25; O2SAT 100
[2023-11-14 06:32] VITALS: BP 163/92; PULSE 78; RESP 18; O2SAT 96
[2023-11-14 07:01] VITALS: BP 160/107; PULSE 79; RESP 20; TEMP 36.7; O2SAT 97
[2023-11-14] MEDS: ONDANSETRON INJ 4 MG/2 ML VIAL IV PUSH (07:13)
[2023-11-14] MEDS: SODIUM CHLORIDE 0.9% IV 1,000 ML 999 ML IV CONT (07:14)
[2023-11-14 07:18] LABS: Appearance Urine Clear (Clear); Bacteria Urine None Seen /hpf; Bilirubin Urine Negative (Negative); Blood Urine Negative (Negative); Color Urine Dark Yellow (Yellow); Glucose Urine UA 3+ mg/dL (Negative); Ketones Urine Trace mg/dL (Negative); Leukocyte Esterase Ur Negative LEU/UL (Negative); Need Manual Microscopic Reviewed; Nitrate Urine Negative (Negative); Non Pathogenic Casts 0-2; Protein Urine 1+ mg/dL (Negative); RBC Urine 0-2 /hpf (0-2); Specific Grav Ur 1.052 (1.001-1.035); Squamous Epithelial Cell Urine None seen /hpf (Few)
[2023-11-14 07:23] LABS: Add Urine Microscopic? YES
--- NOTE | 2023-11-14 07:35 | ED.GENADULT ---
HPI - General Adult General Chief complaint: Nausea/Vomiting/Diarrhea Stated complaint: constipation Time Seen by Provider: 11/14/23 06:48 History of Present Illness HPI narrative: Patient is a 38-year-old female who presents emergency department with chief complaint of abdominal pain. The patient reports that she has been having some constipation issues took 3 Dulcolax and now feels nauseated and has generalized abdominal discomfort patient reports she has managed to manually disimpact herself of some stool but still feels as though her abdomen is full. The patient reports she has had decreased appetite with swelling Related Data Home Medications Medication Instructions Recorded Confirmed cyclobenzaprine 10 mg tablet 10 mg PO TID PRN Muscle Pain 02/28/20 03/03/23 divalproex 500 mg tablet,extended 500 mg PO TID 02/28/20 03/03/23 release 24 hr (Depakote ER) gabapentin 600 mg tablet 600 mg PO DIRECTED PRN Pain 02/28/20 03/03/23 diazepam 5 mg tablet (Valium) 5 mg PO QHS PRN 03/03/23 empagliflozin 10 mg tablet 10 mg PO DAILY 03/03/23 (Jardiance) hydrocodone 7.5 mg-ibuprofen 200 1 tablet PO Q4H PRN 03/03/23 mg tablet hydroxyzine pamoate 50 mg capsule 50 mg PO QID PRN 03/03/23 03/03/23 (Vistaril) quetiapine 100 mg tablet (Seroquel) 300 mg PO HS 03/03/23 03/03/23 sertraline 100 mg tablet (Zoloft) 200 mg PO DAILY 03/03/23 03/03/23 sitagliptin phosphate 50 mg tablet 50 mg PO DAILY 03/03/23 (Januvia) Allergies Allergy/AdvReac Type Severity Reaction Status Date / Time adhesive Allergy Unknown RASH Verified 11/14/23 05:38 codeine Allergy Unknown Anaphylaxis Verified 11/14/23 05:38 levofloxacin AdvReac Unknown Nausea and Verified 11/14/23 05:38 Vomiting Penicillins AdvReac Unknown Unknown Verified 11/14/23 05:38 carisoprodol AdvReac Nausea Verified 11/14/23 05:38 morphine AdvReac Headache Verified 11/14/23 05:38 Review of Systems Review of Systems: A 10 system review of systems was completed on the patient and is negative except for what is stated in the HPI. Nursing and ancillary documentation was reviewed. [facility] Past Medical History Medical History (Updated 11/14/23 @ 08:35 by Chris Evans MD) Anemia Anxiety Arthritis Bipolar disorder Borderline personality disorder Degenerative arthritis Dependent personality disorder Depression Disc herniation GERD (gastroesophageal reflux disease) HTN (hypertension) Migraines Obsessive compulsive personality disorder PCOS (polycystic ovarian syndrome) Petit mal epilepsy Previous known suicide attempt Schizophrenia Sleep apnea UTI (urinary tract infection) Surgical History Surgical History History of bunionectomy History of colonoscopy Hx of foot surgery repair of bunionectomy Hx of spinal surgery Family History Family History Father Depression Multiple sclerosis Diabetes mellitus Mother Hypertension Diabetes mellitus Asthma Social History Social History Social History: Ms. Howell lives at home with her mother and stepfather. 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 She wishes to be a full code. She has designated her mother, Rossy Rodgers, as her surrogate decision maker. She is a non-smoker. She reports occasional cannabis use. She denies other illicit substance use. She reports that she drinks wine socially on occasion. 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
[2023-11-14 08:15] VITALS: BP 164/92; PULSE 79; RESP 19; TEMP 36.7; O2SAT 97
[2023-11-14] MEDS: MAGNESIUM CITRATE 300 ML BTL PO (08:45)
== END 2023-11-14 08:50 | disposition home or self-care (01) ==
PROVIDERS: Emergency Medicine; Emergency Provider Emergency Medicine
DX: R10.84 Generalized abdominal pain (principal); N39.0 Urinary tract infection, site not specified; I10 Essential (primary) hypertension; G40.A09 Absence epileptic syndrome, not intractable, without status epilepticus; E28.2 Polycystic ovarian syndrome; G47.30 Sleep apnea, unspecified; K21.9 Gastro-esophageal reflux disease without esophagitis; M19.90 Unspecified osteoarthritis, unspecified site; F41.9 Anxiety disorder, unspecified; F31.9 Bipolar disorder, unspecified; F60.3 Borderline personality disorder; F60.7 Dependent personality disorder; F42.9 Obsessive-compulsive disorder, unspecified; F20.9 Schizophrenia, unspecified; Z87.440 Personal history of urinary (tract) infections; Z86.2 Personal history of diseases of the blood and blood-forming organs and certain disorders involving the immune mechanism; Z79.84 Long term (current) use of oral hypoglycemic drugs
CPT/HCPCS: 36415; 74177; 80053; 81001; 81025; 83690; 85025; 87086; 87088; 96361; 96374; 99284; A9270; J2405; J7030; Q9967

== ENCOUNTER 2024-03-31 23:36 | Emergency (ER) | payer OTHER, SELFPAY ==
[2024-03-31 23:46] VITALS: BP 156/97; PULSE 99; RESP 18; TEMP 36.2; O2SAT 97
[2024-04-01 00:06] LABS: Basophils Percent Auto 0.2 % (0.2-1.2); Eosinophils Absolute Auto 0.1 K/mm3 (0-0.3); Eosinophils Percent Auto 1.3 % (0-4.4); Hematocrit 46.3 % (37.0-47.0); Hemoglobin 15.8 g/dL (12.0-15.0); Immature Granulocyte Absolute 0.02 K/mm3 (0.00-0.031); Immature Granulocyte Percent A 0.2 % (0-0.5); Lymphocytes Absolute Auto 2.87 K/mm3 (0.9-3.2); Lymphocytes Percent Auto 34.8 % (18.3-44.2); Mean Corpuscular HGB Conc 34.1 g/dl (32-36); Mean Platelet Volume 9.7 fl (7.4-10.4); Monocytes Absolute Auto 0.6 K/mm3 (0.1-0.6); Neutrophils Absolute Auto 4.6 K/mm3 (1.3-6.7); Neutrophils Percent Auto 56.5 % (45.5-73.1); Platelet Count Result 319 k/mm3 (150-375); Red Blood Count 5.09 M/mm3 (4.2-5.4); Red Cell Distribution Width 12.7 % (11.5-14.5); White Blood Count 8.2 K/mm3 (4.5-10.0)
[2024-04-01 00:14] LABS: Alanine Aminotransferase 49 U/L (6-35); Alkaline Phosphatase 132 U/L (38-126); Anion Gap 16 mmol/L (4-12); Aspartate Amino Transferase 56 U/L (14-36); Bilirubin,Total 0.6 mg/dL (0.2-1.3); Blood Urea Nitrogen 6 mg/dL (7-17); Calcium 9.7 mg/dL (8.4-10.2); Carbon Dioxide 23 mmol/L (22-30); Chloride 102 mmol/L (98-107); Estimated CRCL calculation 139 ml/min; Estimated Glomerular Filt Rate > 60; Glucose 117 mg/dL (65-110); Lipase 103 U/L (23-300); Sodium 141 mmol/L (137-145)
[2024-04-01 01:39] LABS: Appearance Urine Cloudy (Clear); Bacteria Urine 2+ /hpf; Bilirubin Urine 2+ (Negative); Blood Urine Negative (Negative); Color Urine Dark Yellow (Yellow); Glucose Urine UA Negative (Negative); Ketones Urine Trace mg/dL (Negative); Leukocyte Esterase Ur 1+ LEU/UL (Negative); Need Manual Microscopic Reviewed; Nitrate Urine Negative (Negative); Non Pathogenic Casts >20; Protein Urine 2+ mg/dL (Negative); Specific Grav Ur 1.031 (1.001-1.035); Squamous Epithelial Cell Urine Many /hpf (Few); WBC Urine 51-100 /hpf (0-3)
[2024-04-01 01:45] LABS: BEDSIDEPREGUCG Negative
[2024-04-01 01:49] VITALS: BP 155/100; PULSE 84; RESP 13; TEMP 36.8; O2SAT 98
[2024-04-01 01:53] LABS: Add Urine Microscopic? YES
--- NOTE | 2024-04-01 02:55 | ED.NAVMDI ---
HPI - Nausea/Vomiting/Diarrhea General Chief complaint: Nausea/Vomiting/Diarrhea Stated complaint: gi bug, cant keep meds down Time Seen by Provider: 04/01/24 02:53 Source: patient Mode of arrival: ambulatory Limitations: no limitations History of Present Illness HPI Narrative: Patient states she cannot keep her medications down and is having nausea. She has had 2 episodes of vomiting. Patient states this has occurred before and happens to her few times per year as she gets a stomach bug. She is having to miss a trip to [place] because of her symptoms. She is complaining of some abdominal distension and a burning sensation in her left upper quadrant. In addition she has been having diarrhea which has been mixture both loose watery stools with some fluffy pieces as well as some formed stools but soft. She has also been burping which leaves a bad taste and smell. Is having abdominal tightness. She does not have an appetite. Her last oral intake was earlier today in which she tried eating oatmeal but vomited. Has a previous history of a colonoscopy given some bleeding as well as an EGD does not otherwise follow with a heating equipment repairer. Not on any anticoagulation. Last bowel movement today. Denies any fevers. Uses marijuana a few times/week. Related Data Home Medications Medication Instructions Recorded Confirmed cyclobenzaprine 10 mg tablet 10 mg PO TID PRN Muscle Pain 02/28/20 03/03/23 divalproex 500 mg tablet,extended 500 mg PO TID 02/28/20 03/03/23 release 24 hr (Depakote ER) gabapentin 600 mg tablet 600 mg PO DIRECTED PRN Pain 02/28/20 03/03/23 diazepam 5 mg tablet (Valium) 5 mg PO QHS PRN 03/03/23 empagliflozin 10 mg tablet 10 mg PO DAILY 03/03/23 (Jardiance) hydrocodone 7.5 mg-ibuprofen 200 1 tablet PO Q4H PRN 03/03/23 mg tablet hydroxyzine pamoate 50 mg capsule 50 mg PO QID PRN 03/03/23 03/03/23 (Vistaril) quetiapine 100 mg tablet (Seroquel) 300 mg PO HS 03/03/23 03/03/23 sertraline 100 mg tablet (Zoloft) 200 mg PO DAILY 03/03/23 03/03/23 sitagliptin phosphate 50 mg tablet 50 mg PO DAILY 03/03/23 (Januvia) Allergies Allergy/AdvReac Type Severity Reaction Status Date / Time adhesive Allergy Unknown RASH Verified 03/31/24 23:37 codeine Allergy Unknown Anaphylaxis Verified 03/31/24 23:37 levofloxacin AdvReac Unknown Nausea and Verified 03/31/24 23:37 Vomiting Penicillins AdvReac Unknown Unknown Verified 03/31/24 23:37 carisoprodol AdvReac Nausea Verified 03/31/24 23:37 morphine AdvReac Headache Verified 03/31/24 23:37 [facility] Past Medical History Medical History (Updated 04/02/24 @ 00:00 by Background Daemon) Anemia Anxiety Arthritis Bipolar disorder Borderline personality disorder Degenerative arthritis Dependent personality disorder Depression Disc herniation GERD (gastroesophageal reflux disease) HTN (hypertension) Migraines Obsessive compulsive personality disorder PCOS (polycystic ovarian syndrome) Petit mal epilepsy Previous known suicide attempt Schizophrenia Sleep apnea UTI (urinary tract infection) Surgical History Surgical History (Updated 04/02/24 @ 18:28 by Charla Hudson MD) History of bunionectomy History of colonoscopy History of esophagogastroduodenoscopy (EGD) Hx of foot surgery repair of bunionectomy Hx of spinal surgery Family History Family History Father Depression Multiple sclerosis Diabetes mellitus Mother Hypertension Diabetes mellitus Asthma Social History Social History (Updated 04/02/24 @ 18:30 by Charla Hudson MD) Social History: Ms. Howell lives at home with her mother and stepfather. 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 She wishes to be a full code. She has designated her mother, Rossy Rodgers, as her surrogate decision maker. She is a non-smoker. She reports occasional cannabis use. She denies other illicit
[2024-04-01] MEDS: ONDANSETRON INJ 4 MG/2 ML VIAL IV PUSH (03:10)
[2024-04-01] MEDS: FAMOTIDINE 20 MG/2 ML VIAL IV PUSH (03:10)
[2024-04-01] MEDS: SODIUM CHLORIDE 0.9% IV 1,000 ML 999 ML IV CONT (03:10)
[2024-04-01] MEDS: KETOROLAC 15 MG/ML VIAL (*BKC) IV PUSH (03:22)
[2024-04-01 03:46] LABS: Magnesium 2.2 mg/dL (1.6-2.3)
[2024-04-01 04:15] LABS: Influenza A QL RT-PCR Negative (Negative); Influenza B QL RT-PCR Negative (Negative); SARS-CoV-2 RNA PCR Negative (Negative)
[2024-04-01] MEDS: DEXTROSE 5%/LACTATED RINGERS 1,000 ML 250 ML IV CONT (04:26)
[2024-04-01] MEDS: HALOPERIDOL LACTATE 5 MG/ML VIAL 2.5 MG IV PUSH (04:35)
[2024-04-01] MEDS: diphenhydrAMINE HCl INJ 50 MG/ML VIAL 25 MG IV PUSH (04:50)
[2024-04-01 05:25] VITALS: BP 133/91; PULSE 87; RESP 18; O2SAT 100
== END 2024-04-01 05:26 | disposition home or self-care (01) ==
PROVIDERS: Emergency Provider Student in an Organized Health Care Education/Training Program
DX: K52.9 Noninfective gastroenteritis and colitis, unspecified (principal); N39.0 Urinary tract infection, site not specified; E86.0 Dehydration; R71.8 Other abnormality of red blood cells; Z20.822 Contact with and (suspected) exposure to COVID-19; I10 Essential (primary) hypertension; E28.2 Polycystic ovarian syndrome; G47.30 Sleep apnea, unspecified; K21.9 Gastro-esophageal reflux disease without esophagitis; M19.90 Unspecified osteoarthritis, unspecified site; F60.3 Borderline personality disorder; F41.9 Anxiety disorder, unspecified; F31.9 Bipolar disorder, unspecified; F42.9 Obsessive-compulsive disorder, unspecified; F20.9 Schizophrenia, unspecified; Z87.440 Personal history of urinary (tract) infections; Z86.2 Personal history of diseases of the blood and blood-forming organs and certain disorders involving the immune mechanism; Z79.899 Other long term (current) drug therapy; Z79.84 Long term (current) use of oral hypoglycemic drugs
CPT/HCPCS: 36415; 80053; 81001; 81025; 83690; 83735; 85025; 87086; 87088; 87636; 96365; 96375; 99284; J0696; J1200; J1630; J1885; J2405; J7030; J7121

== ENCOUNTER 2025-01-22 16:37 | Emergency (ER) | payer OTHER, SELFPAY ==
--- NOTE | ~2025-01-22 | CT_ITS ---
CT soft tissue neck w con Ordering provider: Clem Lugo MD History: 40 years Female with . neck/jaw swelling s/p surgery . Comparison: None. Technique: CT soft tissues neck was performed with contrast. . Automated exposure control and iterat mi reconstruction technique were employed. The dose-length product was 520.02 mGy-cm. 75 mL Omnipaqu e 350 was given IV. Findings: LOWER HEAD: The visualized brain parenchyma, optic globes/orbits and mastoids are normal. The visua lized paranasal sinuses are well aerated. SALIVARY GLANDS: Normal. THYROID: Normal. SUPRAHYOID DEEP SPACES: Lymph nodes seen in both parapharyngeal spaces with the right measures 1.5 cm and the left measures 1.1 cm. CAROTID ARTERIES: Normal. JUGULAR VEINS: Normal. TONSILS: Normal. ORAL CAVITY: Partially obscured by dental amalgam but normal as visualized. PHARYNX, LARYNX AND TRACHEA: Patent and normal. No prevertebral soft tissue swelling. SUPERFICIAL SOFT TISSUES: Soft tissue swelling seen anterior to the lower mandible which may be edema or hematoma. No definite collection seen. THORACIC INLET/VISUALIZED UPPER CHEST: Normal. SKELETAL: Age appropriate degenerative changes. IMPRESSION: 1. Lymphadenopathy is seen in the parapharyngeal spaces. 2. Soft tissue swelling anterior to the lower mandible which may be due to edema versus hematoma. No definite abscess formation or collection seen. Reviewed, dictated and finalized at location A. IMPRESSION: 1. Lymphadenopathy is seen in the parapharyngeal spaces. 2. Soft tissue swelling anterior to the lower mandible which may be due to inder ma versus hematoma. No definite abscess formation or collection seen.
[2025-01-22 16:38] VITALS: BP 146/73; PULSE 93; RESP 15; TEMP 36.8; O2SAT 98
--- OUTSIDE RECORDS SUMMARY | 2025-01-22 16:40 | XMS_ITS | Encounter Summary ---
Author Organization [facility] Facility Care Team Providers Care Filter Press Supervisor Name Role Phone Maury Castillo MD Primary Care Provider [phone] Sanaz Kraus NP Primary Care Provider [phone] Cristo Fernandez MD Unavailable [phone] Encounter Details Date Type Department Care Team (Latest Contact Info) Description 03/19/2016 Orders Only [facility] CLINCONV Provider, MD Guanaco [address] [place] [id number] Social History Tobacco Use Types Packs/Day Years Used Date Smoking Tobacco: Never Assessed Comments Unknown Sex and Gender Information Value Date Recorded Sex Assigned at Not on file Legal Sex Female 10:55 PM SUBWAY TRAIN OPERATOR Gender Identity Female 01/02/2021 2:07 PM CDT Sexual Orientation Straight 12/15/2023 1: 04 AM CDT documented as of this encounter Plan of Treatment Not on file documented as of this encounter Procedures Procedure Name Priority Date/Time Associated Diagnosis Comments PROCEDURE - RESULT 03/19/2016 12 :00 AM CDT PROCEDURE - RESULT 03/19/2016 12 :00 AM CDT PROCEDURE - RESULT 03/19/2016 12 :00 AM CDT SCAN - LABS 03/19/2016 12:00 AM CDT documented in this encounter Results * PROCEDURE - RESULT (03/19/2016 12:00 AM CDT) Narrative 03/19/2016 12:00 AM CDT Ordered by an unspecified provider. Historical Provider Final Res ult * PROCEDURE - RESULT (03/19/2016 12:00 AM CDT) Narrative 03/19/2016 12:00 AM CDT Ordered by an unspecified provider. Historical Provider Final Res ult * PROCEDURE - RESULT (03/19/2016 12:00 AM CDT) Narrative 03/19/2016 12:00 AM CDT Ordered by an unspecified provider. [facility] Provider Final Res ult * SCAN - LABS (03/19/2016 12:00 AM CDT) Narrative 03/19/2016 12:00 AM CDT Ordered by an unspecified provider. [facility] Provider Final Res ult documented in this encounter Visit Diagnoses Not on filedocumented in this encounter Additional Health Concerns Infection Onset Date Last Indicated Resolved Time COVID: Suspected 07/05/2021 07/05/2021 07/05/2021 2:10 AM CDT COVID: Suspected 08/10/2021 08/10/2021 08/11/2021 5:46 AM SUBWAY TRAIN OPERATOR COVID19 08/24/2021 08/24/2021 09/07/2021 3:05 AM SUBWAY TRAIN OPERATOR COVID: Recovered Comment:Added based on recent COVID infection. 09/07/2021 09/21/2021 01/05/2022 3:05 AM C DT COVID: Suspected 01/29/2022 01/29/2022 01/29/2022 9:56 PM CDT Exposure, COVID-19 Comment:Added automatically based on COVID19 lab answers indicating exposure risk 03/22/2022 03/22/2022 04/01/2022 3:05 AM C DT COVID: Suspected 03/22/2022 03/22/2022 03/23/2022 3:05 AM CDT COVID: Suspected 03/22/2022 03/22/202203/2303/23/2022 5:50 AM CDT COVID: Suspected 04/07/2022 04/07/2022 04/07/2022 9:17 PM CDT COVID: Suspected 08/13/2022 08/13/2022 08/13/2022 3:52 PM SUBWAY TRAIN OPERATOR COVID: Suspected 08/13/2022 08/13/2022 08/13/2022 9:10 PM SUBWAY TRAIN OPERATOR RSV, droplet 08/13/2022 08/16/2022 08/23/2022 3:05 AM SUBWAY TRAIN OPERATOR COVID: Suspected 08/16/2022 08/16/2022 08/16/2022 10:42 PM SUBWAY TRAIN OPERATOR COVID: Suspected 03/18/2024 03/18/2024 03/18/2024 3:43 PM CDT COVID: Suspected 03/18/2024 03/18/2024 03/18/2024 9:24 PM CDT documented as of this encounter Care Teams Filter Press Supervisor Relationship Specialty Start Date End Date Maury Castillo MD PCP - General Family Medicine 09/02/19 06/01/22 Sanaz Kraus NP [address] [facility] [address] [address] PCP - General Family Medicine 06/09/23 Cristo Fernandez MD [address] [place] [address] Referring Physician Psychiatry & Neurology 06/14/24 documented as of this encounter
--- OUTSIDE RECORDS SUMMARY | 2025-01-22 16:40 | XMS_ITS | Encounter Summary ---
Author Organization [facility] Facility Care Team Providers Care Wrapper Caser Name Role Phone Maury Castillo MD Primary Care Provider [phone] Sanaz Kraus NP Primary Care Provider [phone] Cristo Fernandez MD Unavailable [phone] Encounter Details Date Type Department Care Team (Latest Contact Info) Description 09/24/2016 Orders Only [facility] CLINCONV Provider, MD Guanaco [address] [place] [id number] Social History Tobacco Use Types Packs/Day Years Used Date Smoking Tobacco: Never Assessed Comments Unknown Sex and Gender Information Value Date Recorded Sex Assigned at Not on file Legal Sex Female 10:55 PM SUPERVISOR FUSING ROOM Gender Identity Female 01/02/2021 2:07 PM CDT Sexual Orientation Straight 12/15/2023 1: 04 AM CDT documented as of this encounter Plan of Treatment Not on file documented as of this encounter Procedures Procedure Name Priority Date/Time Associated Diagnosis Comments PROCEDURE - RESULT 09/25/2016 12 :00 AM SUPERVISOR FUSING ROOM documented in this encounter Results * PROCEDURE - RESULT (09/25/2016 12:00 AM SUPERVISOR FUSING ROOM) Narrative 09/25/2016 12:00 AM SUPERVISOR FUSING ROOM Ordered by an unspecified provider. us Historical Provider Final Res ult documented in this encounter Visit Diagnoses Not on filedocumented in this encounter Additional Health Concerns Infection Onset Date Last Indicated Resolved Time COVID: Suspected 07/05/2021 07/05/2021 07/05/2021 2:10 AM CDT COVID: Suspected 08/10/2021 08/10/2021 08/11/2021 5:46 AM SUPERVISOR FUSING ROOM COVID19 08/24/2021 08/24/2021 09/07/2021 3:05 AM SUPERVISOR FUSING ROOM COVID: Recovered Comment:Added based on recent COVID infection. 09/07/2021 09/21/2021 01/05/2022 3:05 AM C DT COVID: Suspected 01/29/2022 01/29/2022 01/29/2022 9:56 PM CDT Exposure, COVID-19 Comment:Added automatically based on COVID19 lab answers indicating exposure risk 03/22/2022 03/22/2022 04/01/2022 3:05 AM C DT COVID: Suspected 03/22/2022 03/22/2022 03/23/2022 3:05 AM CDT COVID: Suspected 03/22/2022 03/22/2022 03/23/2022 5:50 AM CDT COVID: Suspected 04/07/2022 04/07/2022 04/07/2022 9:17 PM CDT COVID: Suspected 08/13/2022 08/13/2022 08/13/2022 3:52 PM SUPERVISOR FUSING ROOM COVID: Suspected 08/13/2022 08/13/2022 08/13/2022 9:10 PM SUPERVISOR FUSING ROOM RSV, droplet 08/13/2022 08/16/2022 08/23/2022 3:05 AM SUPERVISOR FUSING ROOM COVID: Suspected 08/16/2022 08/16/2022 08/16/2022 10:42 PM SUPERVISOR FUSING ROOM COVID: Suspected 03/18/2024 03/18/2024 03/18/2024 3:43 PM CDT COVID: Suspected 03/18/2024 03/18/2024 03/18/2024 9:24 PM CDT documented as of this encounter Care Teams Wrapper Caser Relationship Specialty Start Date End Date Maury Castillo MD PCP - General Family Medicine 09/02/19 06/01/22 Sanaz Kraus NP [address] [facility] [address] [place] [address] [place] [address] PCP - General Family Medicine 06/09/23 Cristo Fernandez MD [address] [place] [address] Referring Physician Psychiatry & Neurology 06/14/24 documented as of this encounter
--- OUTSIDE RECORDS SUMMARY | 2025-01-22 16:40 | XMS_ITS | Encounter Summary ---
Author Organization [facility] Facility Care Team Providers Care Travel Writer Name Role Phone Maury Castillo MD Primary Care Provider [phone] Sanaz Kraus NP Primary Care Provider [phone] Cristo Fernandez MD Unavailable [phone] Encounter Details Date Type Department Care Team (Latest Contact Info) Description 05/08/2016 Orders Only [facility] CLINCONV Provider, MD Guanaco [address] [place] [address] Social History Tobacco Use Types Packs/Day Years Used Date Smoking Tobacco: Never Assessed Comments Unknown Sex and Gender Information Value Date Recorded Sex Assigned at Not on file Legal Sex Female 10:55 PM YOUTH MINISTER Gender Identity Female 01/02/2021 2:07 PM CDT Sexual Orientation Straight 12/15/2023 1: 04 AM CDT documented as of this encounter Plan of Treatment Not on file documented as of this encounter Procedures Procedure Name Priority Date/Time Associated Diagnosis Comments PROCEDURE - RESULT 04/17/2016 12 :00 AM CDT documented in this encounter Results * PROCEDURE - RESULT (04/17/2016 12:00 AM CDT) Narrative 04/17/2016 12:00 AM CDT Ordered by an unspecified provider. us Historical Provider Final Res ult documented in this encounter Visit Diagnoses Not on filedocumented in this encounter Additional Health Concerns Infection Onset Date Last Indicated Resolved Time COVID: Suspected 07/05/2021 07/05/2021 07/05/2021 2:10 AM CDT COVID: Suspected 08/10/2021 08/10/2021 08/11/2021 5:46 AM YOUTH MINISTER COVID19 08/24/2021 08/24/2021 09/07/2021 3:05 AM YOUTH MINISTER COVID: Recovered Comment:Added based on recent COVID [...] COVID: Suspected 08/13/2022 08/13/2022 08/13/2022 3:52 PM YOUTH MINISTER COVID: Suspected 08/13/2022 08/13/2022 08/13/2022 9:10 PM YOUTH MINISTER RSV, droplet 08/13/2022 08/16/2022 08/23/2022 3:05 AM YOUTH MINISTER COVID: Suspected 08/16/2022 08/16/2022 08/16/2022 10:42 PM YOUTH MINISTER COVID: Suspected 03/18/2024 03/18/2024 03/18/2024 3:43 PM CDT COVID: Suspected 03/18/2024 03/18/2024 03/18/2024 9:24 PM CDT documented as of this encounter Care Teams Travel Writer Relationship Specialty Start Date End Date Maury Castillo MD PCP - General Family Medicine 09/02/19 06/01/22 Sanaz Kraus NP [address] [place] [address] PCP - General Family Medicine 06/09/23 Cristo Fernandez MD [address] [place] [address] Referring Physician Psychiatry & Neurology 06/14/24 documented as of this encounter
--- OUTSIDE RECORDS SUMMARY | 2025-01-22 16:40 | XMS_ITS | Encounter Summary ---
Author Organization [facility] Facility Care Team Providers Care Paper Sales Representative Name Role Phone Maury Castillo MD Primary Care Provider [phone] Sanaz Kraus NP Primary Care Provider [phone] Cristo Fernandez MD Unavailable [phone] Encounter Details Date Type Department Care Team (Latest Contact Info) Description 02/21/2016 Orders Only [facility] CLINCONV Provider, MD Guanaco [address] [place] [address] Social History Tobacco Use Types Packs/Day Years Used Date Smoking Tobacco: Never Assessed Comments Unknown Sex and Gender Information Value Date Recorded Sex Assigned at Not on file Legal Sex Female 10:55 PM VIDEO GAME PRODUCER Gender Identity Female 01/02/2021 2:07 PM CDT Sexual Orientation Straight 12/15/2023 1: 04 AM CDT documented as of this encounter Plan of Treatment Not on file documented as of this encounter Procedures Procedure Name Priority Date/Time Associated Diagnosis Comments PROCEDURE - RESULT 02/21/2016 12 :00 AM CDT PROCEDURE - RESULT 02/21/2016 12 :00 AM CDT documented in this encounter Results * PROCEDURE - RESULT (02/21/2016 12:00 AM CDT) Narrative 02/21/2016 12:00 AM CDT Ordered by an unspecified provider. Historical Provider Final Res ult * PROCEDURE - RESULT (02/21/2016 12:00 AM CDT) Narrative 02/21/2016 12:00 AM CDT Ordered by an unspecified provider. Historical Provider Final Res ult documented in this encounter Visit Diagnoses Not on filedocumented in this encounter Additional Health Concerns Infection Onset Date Last Indicated Resolved Time COVID: Suspected 07/05/2021 07/05/2021 07/05/2021 2:10 AM CDT COVID: Suspected 08/10/2021 08/10/2021 08/11/2021 5:46 AM VIDEO GAME PRODUCER COVID19 08/24/2021 08/24/2021 09/07/2021 3:05 AM VIDEO GAME PRODUCER COVID: Recovered Comment:Added based on recent COVID [...] COVID: Suspected 08/13/2022 08/13/2022 08/13/2022 3:52 PM VIDEO GAME PRODUCER COVID: Suspected 08/13/2022 08/13/2022 08/13/2022 9:10 PM VIDEO GAME PRODUCER RSV, droplet 08/13/2022 08/16/2022 08/23/2022 3:05 AM VIDEO GAME PRODUCER COVID: Suspected 08/16/2022 08/16/2022 08/16/2022 10:42 PM VIDEO GAME PRODUCER COVID: Suspected 03/18/2024 03/18/2024 03/18/2024 3:43 PM CDT COVID: Suspected 03/18/2024 03/18/2024 03/18/2024 9:24 PM CDT documented as of this encounter Care Teams Paper Sales Representative Relationship Specialty Start Date End Date Maury Castillo MD PCP - General Family Medicine 09/02/19 06/01/22 Sanaz Kraus NP [address] [facility] [address] [address] PCP - General Family Medicine 06/09/23 Cristo Fernandez MD [address] [place] [address] Referring Physician Psychiatry & Neurology 06/14/24 documented as of this encounter
--- OUTSIDE RECORDS SUMMARY | 2025-01-22 16:40 | XMS_ITS | Encounter Summary ---
Author Organization [facility] Facility Care Team Providers Care Chief Data Officer Name Role Phone Maury Castillo MD Primary Care Provider [phone] Sanaz Kraus NP Primary Care Provider [phone] Cristo Fernandez MD Unavailable [phone] Encounter Details Date Type Department Care Team (Latest Contact Info) Description 03/19/2015 Orders Only [facility] CLINCONV Provider, MD Guanaco [address] [place] [address] Social History Tobacco Use Types Packs/Day Years Used Date Smoking Tobacco: Never Assessed Comments Unknown Sex and Gender Information Value Date Recorded Sex Assigned at Not on file Legal Sex Female 10:55 PM SENIOR ENVIRONMENTAL TECHNICIAN Gender Identity Female 01/02/2021 2:07 PM CDT Sexual Orientation Straight 12/15/2023 1: 04 AM CDT documented as of this encounter Plan of Treatment Not on file documented as of this encounter Procedures Procedure Name Priority Date/Time Associated Diagnosis Comments PROCEDURE - RESULT 03/19/2016 12 :00 AM CDT documented in this [...] COVID: Suspected 08/10/2021 08/10/2021 08/11/2021 5:46 AM SENIOR ENVIRONMENTAL TECHNICIAN COVID19 08/24/2021 08/24/2021 09/07/2021 3:05 AM SENIOR ENVIRONMENTAL TECHNICIAN COVID: Recovered Comment:Added based on recent COVID [...] COVID: Suspected 08/13/2022 08/13/2022 08/13/2022 3:52 PM SENIOR ENVIRONMENTAL TECHNICIAN COVID: Suspected 08/13/2022 08/13/2022 08/13/2022 9:10 PM SENIOR ENVIRONMENTAL TECHNICIAN RSV, droplet 08/13/2022 08/16/2022 08/23/2022 3:05 AM SENIOR ENVIRONMENTAL TECHNICIAN COVID: Suspected 08/16/2022 08/16/2022 08/16/2022 10:42 PM SENIOR ENVIRONMENTAL TECHNICIAN COVID: Suspected 03/18/2024 03/18/2024 03/18/2024 3:43 PM CDT COVID: Suspected 03/18/2024 03/18/2024 03/18/2024 9:24 PM CDT documented as of this encounter Care Teams Chief Data Officer Relationship Specialty Start Date End Date Maury Castillo MD PCP - General Family Medicine 09/02/19 06/01/22 Sanaz Kraus NP [address] [facility] [address] [place] [place] [address] PCP - General Family Medicine 06/09/23 Cristo Fernandez MD [address] [place] [address] Referring Physician Psychiatry & Neurology 06/14/24 documented as of this encounter
--- OUTSIDE RECORDS SUMMARY | 2025-01-22 16:40 | XMS_ITS | Encounter Summary ---
Author Organization [facility] Facility Care Team Providers Care Pattern Maker Programer Name Role Phone Maury Castillo MD Primary Care Provider [phone] Sanaz Kraus NP Primary Care Provider [phone] Cristo Fernandez MD Unavailable [phone] Encounter Details Date Type Department Care Team (Latest Contact Info) Description 10/25/2017 Orders Only [facility] CLINCONV Provider, MD Guanaco [address] [place] [address] Social History Tobacco Use Types Packs/Day Years Used Date Smoking Tobacco: Never Assessed Comments Unknown Sex and Gender Information Value Date Recorded Sex Assigned at Not on file Legal Sex Female 10:55 PM SPUD GRADER Gender Identity Female 01/02/2021 2:07 PM CDT Sexual Orientation Straight 12/15/2023 1: 04 AM CDT documented as of this encounter Plan of Treatment Not on file documented as of this encounter Procedures Procedure Name Priority Date/Time Associated Diagnosis Comments SCAN - LABS 10/27/2017 12:00 AM SPUD GRADER documented in this encounter Results * SCAN - LABS (10/27/2017 12:00 AM SPUD GRADER) Narrative 10/27/2017 12:00 AM SPUD GRADER Ordered by an unspecified provider. us Historical Provider Final Res ult documented in this encounter Visit Diagnoses Not on filedocumented in this encounter Additional Health Concerns Infection Onset Date Last Indicated Resolved Time COVID: Suspected 07/05/2021 07/05/2021 07/05/2021 2:10 AM CDT COVID: Suspected 08/10/2021 08/10/2021 08/11/2021 5:46 AM SPUD GRADER COVID19 08/24/2021 08/24/2021 09/07/2021 3:05 AM SPUD GRADER COVID: Recovered Comment:Added based on recent COVID [...] COVID: Suspected 08/13/2022 08/13/2022 08/13/2022 3:52 PM SPUD GRADER COVID: Suspected 08/13/2022 08/13/2022 08/13/2022 9:10 PM SPUD GRADER RSV, droplet 08/13/2022 08/16/2022 08/23/2022 3:05 AM SPUD GRADER COVID: Suspected 08/16/2022 08/16/2022 08/16/2022 10:42 PM SPUD GRADER COVID: Suspected 03/18/2024 03/18/2024 03/18/2024 3:43 PM CDT COVID: Suspected 03/18/2024 03/18/2024 03/18/2024 9:24 PM CDT documented as of this encounter Care Teams Pattern Maker Programer Relationship Specialty Start Date End Date Maury Castillo MD PCP - General Family Medicine 09/02/19 06/01/22 Sanaz Kraus NP [address] [facility] [address] [place] [place] [address] PCP - General Family Medicine 06/09/23 Cristo Fernandez MD [address] [place] [address] Referring Physician Psychiatry & Neurology 06/14/24 documented as of this encounter
--- OUTSIDE RECORDS SUMMARY | 2025-01-22 16:40 | XMS_ITS | Encounter Summary ---
Author Organization [facility] Facility Care Team Providers Care Hide Inspector And Sorter Name Role Phone Maury Castillo MD Primary Care Provider [phone] Sanaz Kraus NP Primary Care Provider [phone] Cristo Fernandez MD Unavailable [phone] Encounter Details Date Type Department Care Team (Latest Contact Info) Description 07/29/2016 Orders Only [facility] CLINCONV Provider, MD Guanaco [address] [place] [address] Social History Tobacco Use Types Packs/Day Years Used Date Smoking Tobacco: Never Assessed Comments Unknown Sex and Gender Information Value Date Recorded Sex Assigned at Not on file Legal Sex Female 10:55 PM MANUFACTURING COST ESTIMATOR Gender Identity Female 01/02/2021 2:07 PM CDT Sexual Orientation Straight 12/15/2023 1: 04 AM CDT documented as of this encounter Plan of Treatment Not on file documented as of this encounter Procedures Procedure Name Priority Date/Time Associated Diagnosis Comments CARDIOLOGY REPORT 07/30/2016 12: 00 AM MANUFACTURING COST ESTIMATOR CARDIOLOGY REPORT 07/30/2016 12: 00 AM MANUFACTURING COST ESTIMATOR documented in this encounter Results * CARDIOLOGY REPORT (07/30/2016 12:00 AM MANUFACTURING COST ESTIMATOR) Anatomical Region Laterality Modality Other Narrative 07/30/2016 12:00 AM MANUFACTURING COST ESTIMATOR Ordered by an unspecified provider. Historical Provider CV CARDIAC SERVICES PROCE DURES Final Result * CARDIOLOGY REPORT (07/30/2016 12:00 AM MANUFACTURING COST ESTIMATOR) Anatomical Region Laterality Modality Other Narrative 07/30/2016 12:00 AM MANUFACTURING COST ESTIMATOR Ordered by an unspecified provider. Historical Provider CV CARDIAC SERVICES BISI SNOW Final Result documented in this encounter Visit Diagnoses Not on filedocumented in this encounter Additional Health Concerns Infection Onset Date Last Indicated Resolved Time COVID: Suspected 07/05/2021 07/05/2021 07/05/2021 2:10 AM CDT COVID: Suspected 08/10/2021 08/10/2021 08/11/2021 5:46 AM MANUFACTURING COST ESTIMATOR COVID19 08/24/2021 08/24/2021 09/07/2021 3:05 AM MANUFACTURING COST ESTIMATOR COVID: Recovered Comment:Added based on recent COVID [...] COVID: Suspected 08/13/2022 08/13/2022 08/13/2022 3:52 PM MANUFACTURING COST ESTIMATOR COVID: Suspected 08/13/2022 08/13/2022 08/13/2022 9:10 PM MANUFACTURING COST ESTIMATOR RSV, droplet 08/13/2022 08/16/2022 08/23/2022 3:05 AM MANUFACTURING COST ESTIMATOR COVID: Suspected 08/16/2022 08/16/2022 08/16/2022 10:42 PM MANUFACTURING COST ESTIMATOR COVID: Suspected 03/18/2024 03/18/2024 03/18/2024 3:43 PM CDT COVID: Suspected 03/18/2024 03/18/2024 03/18/2024 9:24 PM CDT documented as of this encounter Care Teams Hide Inspector And Sorter Relationship Specialty Start Date End Date Maury Castillo MD PCP - General Family Medicine 09/02/19 06/01/22 Sanaz Kraus NP [address] [facility] [address] [address] PCP - General Family Medicine 06/09/23 Cristo Fernandez MD [address] [place] [address] Referring Physician Psychiatry & Neurology 06/14/24 documented as of this encounter
--- OUTSIDE RECORDS SUMMARY | 2025-01-22 16:40 | XMS_ITS | Encounter Summary ---
Author Organization [facility] Facility Care Team Providers Care Wax Pattern Assembler Name Role Phone Muary Castillo MD Primary Care Provider [phone] Sanaz Kraus NP Primary Care Provider [phone] Cristo Fernandez MD Unavailable [phone] Encounter Details Date Type Department Care Team (Latest Contact Info) Description 07/26/2016 Orders Only [facility]G CLINCONV Provider, MD Guanaco [address] [place] [address] Social History Tobacco Use Types Packs/Day Years Used Date Smoking Tobacco: Never Assessed Comments Unknown Sex and Gender Information Value Date Recorded Sex Assigned at Not on file Legal Sex Female 10:55 PM HYDRAULIC JACK OPERATOR Gender Identity Female 01/02/2021 2:07 PM CDT Sexual Orientation Straight 12/15/2023 1: 04 AM CDT documented as of this encounter Plan of Treatment Not on file documented as of this encounter Procedures Procedure Name Priority Date/Time Associated Diagnosis Comments CARDIOLOGY REPORT 07/30/2016 12: 00 AM HYDRAULIC JACK OPERATOR documented in this encounter Results * CARDIOLOGY REPORT (07/30/2016 12:00 AM HYDRAULIC JACK OPERATOR) Anatomical Region Laterality Modality Other Narrative 07/30/2016 12:00 AM HYDRAULIC JACK OPERATOR Ordered by an unspecified provider. Historical Provider CV CARDIAC SERVICES BISI SNOW Final Result documented in this encounter Visit Diagnoses Not on filedocumented in this encounter Additional Health Concerns Infection Onset Date Last Indicated Resolved Time COVID: Suspected 07/05/2021 07/05/2021 07/05/2021 2:10 AM CDT COVID: Suspected 08/10/2021 08/10/2021 08/11/2021 5:46 AM HYDRAULIC JACK OPERATOR COVID19 08/24/2021 08/24/2021 09/07/2021 3:05 AM HYDRAULIC JACK OPERATOR COVID: Recovered Comment:Added based on recent [...] COVID: Suspected 08/13/2022 08/13/2022 08/13/2022 3:52 PM HYDRAULIC JACK OPERATOR COVID: Suspected 08/13/2022 08/13/2022 08/13/2022 9:10 PM HYDRAULIC JACK OPERATOR RSV, droplet 08/13/2022 08/16/2022 08/23/2022 3:05 AM HYDRAULIC JACK OPERATOR COVID: Suspected 08/16/2022 08/16/2022 08/16/2022 10:42 PM HYDRAULIC JACK OPERATOR COVID: Suspected 03/18/2024 03/18/2024 03/18/2024 3:43 PM CDT COVID: Suspected 03/18/2024 03/18/2024 03/18/2024 9:24 PM CDT documented as of this encounter Care Teams Wax Pattern Assembler Relationship Specialty Start Date End Date Maury Castillo MD PCP - General Family Medicine 09/02/19 06/01/22 Sanaz Kraus NP [address] [facility] [address] [place] [address] PCP - General Family Medicine 06/09/23 Cristo Fernandez MD [address] [place] [address] Referring Physician Psychiatry & Neurology 06/14/24 documented as of this encounter
--- OUTSIDE RECORDS SUMMARY | 2025-01-22 16:40 | XMS_ITS | Encounter Summary ---
Author Organization [facility] Facility Care Team Providers Care Ground Operations Supervisor Name Role Phone Maury Castillo MD Primary Care Provider [phone] Sanaz Kraus NP Primary Care Provider [phone] Cristo Fernandez MD Unavailable [phone] Encounter Details Date Type Department Care Team (Latest Contact Info) Description 05/07/2016 Orders Only MMG CLINCONV Provider, MD Guanaco [address] [place] [address] Social History Tobacco Use Types Packs/Day Years Used Date Smoking Tobacco: Never Assessed Comments Unknown Sex and Gender Information Value Date Recorded Sex Assigned at Not on file Legal Sex Female 10:55 PM ASTRONOMY DEPARTMENT CHAIR Gender Identity Female 01/02/2021 2:07 PM CDT Sexual Orientation Straight 12/15/2023 1: 04 AM CDT documented as of this encounter Plan of Treatment Not on file documented as of this encounter Procedures Procedure Name Priority Date/Time Associated Diagnosis Comments PROCEDURE - RESULT 05/07/2016 12 :00 AM CDT documented in this encounter Results * PROCEDURE - RESULT (05/07/2016 12:00 AM CDT) Narrative 05/07/2016 12:00 AM CDT Ordered by an unspecified provider. us Historical Provider Final Res ult documented in this encounter Visit Diagnoses Not on filedocumented in this encounter Additional Health Concerns Infection Onset Date Last Indicated Resolved Time COVID: Suspected 07/05/2021 07/05/2021 07/05/2021 2:10 AM CDT COVID: Suspected 08/10/2021 08/10/2021 08/11/2021 5:46 AM ASTRONOMY DEPARTMENT CHAIR COVID19 08/24/2021 08/24/2021 09/07/2021 3:05 AM ASTRONOMY DEPARTMENT CHAIR COVID: Recovered Comment:Added based on recent COVID [...] COVID: Suspected 08/13/2022 08/13/2022 08/13/2022 3:52 PM ASTRONOMY DEPARTMENT CHAIR COVID: Suspected 08/13/2022 08/13/2022 08/13/2022 9:10 PM ASTRONOMY DEPARTMENT CHAIR RSV, droplet 08/13/2022 08/16/2022 08/23/2022 3:05 AM ASTRONOMY DEPARTMENT CHAIR COVID: Suspected 08/16/2022 08/16/2022 08/16/2022 10:42 PM ASTRONOMY DEPARTMENT CHAIR COVID: Suspected 03/18/2024 03/18/2024 03/18/2024 3:43 PM CDT COVID: Suspected 03/18/2024 03/18/2024 03/18/2024 9:24 PM CDT documented as of this encounter Care Teams Ground Operations Supervisor Relationship Specialty Start Date End Date Maury Castillo MD PCP - General Family Medicine 09/02/19 06/01/22 Sanaz Kraus NP [address] [facility] [address] [place] [place] [address] PCP - General Family Medicine 06/09/23 Cristo Fernandez MD [address] [place] [address] Referring Physician Psychiatry & Neurology 06/14/24 documented as of this encounter
--- OUTSIDE RECORDS SUMMARY | 2025-01-22 16:41 | XMS_ITS | CONTINUITY OF CARE DOCUMENT ---
Author Name china atkinson Address Unknown Organization [facility] Address [address] [place] [address] Phone [phone] Care Team Providers Care Labor Relations Or Personnel Negotiator Name Role Phone Zelda SIEGEL, Kiran Unavailable [phone] Kiran Ndiaye MD Unavailable [phone] INSURANCE PROVIDERS Payer name Policy type / Coverage type [employer]ves red constitution party ID [place] MEDICAID (2) Medicaid [id number]
--- OUTSIDE RECORDS SUMMARY | 2025-01-22 16:41 | XMS_ITS | Data Portability ---
Author Organization [place] - [facility] [place] Address [address] [place] [address] [place] [address] Assessment No assessment recorded. Plan of Treatment Reminders Order Date Submit Date Provider Last Modified By Organization Details Last Modified Time Details Appointments None recorded. Lab unlisted lab - [facility], AVNI 2023 [facility] (Lab), [address], [place], [address], 18:06:41 urinalysis, dipstick 2021 022 [email or web address] [place], [address], [address], [place], [address], 14:59:59 Referral None recorded. Procedures None recorded. Surgeries None recorded. Imaging None recorded. Medication Orders nystatin-tr iamcinolone 100,000 unit/gram-0 .1 % topical ointment 2023 [facility]/Pharmacy #[id number], [address] [place], [address], 4 12:08:11 fluconazole 200 mg tablet 2023 [facility]/Pharmacy #[id number], [address] [place], [address], 4 12:10:54 Diflucan 200 mg tablet 2023 [facility]/Pharmacy #[id number], [address] [place], [address], 4 11:24:21 Nextstellis 3 mg-14.2 mg (28) tablet 2023 024 [email or web address] 1 [facility]/Pharmacy #[id number], [address] [place], [address], 4 11:24:34 Diflucan 200 mg tablet 2021 022 [email or web address] Not available 4 11:24:12 Slynd 4 mg (28) tablet 2021 022 [email or web address] Not available 14:08:35 Diflucan 200 mg tablet 2021 022 [email or web address] 1 [facility]13334, [address], [place], [id number], 4 11:24:12 nystatin-tr iamcinolone 100,000 unit/gram-0 .1 % topical ointment 2021 022 [facility], [address], [place], [id number], 2 10:48:21 Diflucan 200 mg tablet 2019 020 [email or web address] 1 [facility], [address], [place], [id number], 4 11:24:12 nystatin-tr iamcinolone 100,000 unit/gram-0 .1 % topical ointment 2019 020 [email or web address] [facility] #30029, [address], [place], [id number], 2 10:47:59 Patient TargetsNo targets recorded. Patient InstructionsNo instructions recorded. Reason for Referral None Reported. Results Created Date Observation Date Name Description Value Unit Range Abnormal Flag Note LastModifiedBy Organization Detail LastModifiedTime 08/26/20 20 08/29/2020 bacte rial vagin osis panel , vagin al top line result Border line abnormal Not Available [facility] ([facility]) [address], [place], [address], 08/29/2020 16:44:26 08/26/20 20 08/29/2020 bacte rial vagin osis panel , vagin al interpretati on SEE COMMEN T The organ isms detec tierra in this speci men are indic ative of trans ition al micro rima , a borde rline resul t. Detec tion and/o r eleva tion of some bacte rial vagin osis (BV) assoc iated organ isms in isola tion may not indic ate patho logic al disea se as they can be prese nt in fran l vagin al micro rima . Taken toget her, these resul ts may repre sent eithe r an incre ased risk of progr essio n to BV or a retur n to a more fran l state from BV. These resul ts are meant to aid in the diagn osis and manag ement of BV and shoul d be inter prete d in the rohit xt of other test resul ts and clini ariana findi ngs. Not Available [facility] ([facility]) [facility], [place], [address], 08/29/2020 16:44:26 08/26/20 20 08/29/2020 bacte rial vagin osis panel , vagin al atopobium vaginae Elevat ed abnormal Not Available [facility] ([facility]) [address] [place] [address] Dr Ayala, [place], [address], 08/29/2020 16:44:26 08/26/20 20 08/29/2020 bacte rial vagin osis panel , vagin al gardnerella vaginalis Not Detect ed normal Not Available [facility] ([facility]) [address] [place] [address] Dr Ayala, [place], [address], 08/29/2020 16:44:26 08/26/20 20 08/29/2020 bacte rial vagin osis panel , vagin al [email or web address] Not Detect ed normal Not Available [facility] ([facility]) [address] [place] [address] Dr Ayala, [place], [address], 08/29/2020 16:44:26 08/26/20 20 08/29/2020 bacte rial vagin osis panel , vagin al megasphaera 1 Elevat ed abnormal Not Available [facility]) [address] [place] [address] Dr Ayala, [place], [address], 08/29/2020 16:44:26 08/26/20 20 08/29/2020 bacte rial vagin osis panel , vagin al megaspherea 2 Not Detect ed normal Not Available [facility] ([facility]) [address] [place] [address] Dr Ayala, [place], [address], 08/29/2020 16:44:26 08/26/20 20 08/29/2020 bacte rial vagin osis panel , vagin al lactobacillu s crispatus Not Detect ed normal Not Available [facility] ([facility]) [address] [place] [address] Dr Ayala, [place], [address], 08/29/2020 16:44:26 08/26/20 20 08/29/2020 bacte rial vagin osis panel , vagin al lactobacillu s gasseri Not Detect ed normal Not Available [facility] ([facility]) [address] [place] [address] Dr Ayala, [place], [address], 08/29/2020 16:44:26 08/26/20 20 08/29/2020 bacte rial vagin osis panel , vagin al lactobacillu s iners ql Elevat ed abnormal Not Available [facility] ([facility]) [address] [place] [address] Dr Ayala, [place], [address], 08/29/2020 16:44:26 08/26/20 20 08/29/2020 bacte rial vagin osis panel , vagin al lactobacillu s jensenii ql Not Detect ed normal Not Available [facility] ([facility]) [address] [place] [address] Dr Ayala, [place], [address], 08/29/2020 16:44:26 08/26/20 20 08/29/2020 bacte rial vagin osis panel , vagin al mobiluncus mulieris Not Detect ed normal Not Available [facility] ([facility]) [address] [place] [address] Dr Ayala, [place], [address], 08/29/2020 16:44:26 08/26/20 20 08/29/2020 bacte rial vagin osis panel , vagin al mobiluncus curtisii Not Detect ed normal Not Available [facility] ([facility]) [address] [place] [address] Dr Ayala, [place], [address], 08/29/2020 16:44:26 08/26/20 20 08/29/2020 bacte rial vagin osis panel , vagin al mycoplasma hominis Not Detect ed normal Not Available [facility] ([facility]) [address] [place] [address] Dr Ayala, [place], [address], 08/29/2020 16:44:26 08/26/20 20 08/29/2020 bacte rial vagin osis panel , vagin al ureaplasma urealyticum Not Detect ed normal Not Available [facility] ([facility]) [address] [place] [address] Dr Ayala, [place], [address], 08/29/2020 16:44:26 12/07/19 22 12/06/2021 URINA LYSIS , WITH MICRO SCOPI C color, urine Yellow colorl ess, light yellow , yellow , dark yellow , straw Not Available [facility] (Lab) [address], [place], [address], 12/12/2021 02:04:05 12/07/19 22 12/06/2021 URINA LYSIS , WITH MICRO SCOPI C clarity, urine Clear Not Available [facility] (Lab) [address], [place], [address], 12/12/2021 02:04:05 12/07/19 22 12/06/2021 URINA LYSIS , WITH MICRO SCOPI C glucose, urine >=500 mg/dL negati ve abnormal Not Available [facility] (Lab) [address], [place], [address], 12/12/2021 02:04:05 12/07/19 22 12/06/2021 URINA LYSIS , WITH MICRO SCOPI C bilirubin, urine Negati ve mg/dL negati ve Not Available [facility] (Lab) [address], [place], [address], 12/12/2021 02:04:05 12/07/19 22 12/06/2021 URINA LYSIS , WITH MICRO SCOPI C ketones, urine Negati ve mg/dL negati ve Not Available [facility] (Lab) [address], [place], [address], 12/12/2021 02:04:05 12/07/19 22 12/06/2021 URINA LYSIS , WITH MICRO SCOPI C pH, urine 7.0 . 5.0-9. [address] [facility] (Lab) [address], [place], [address], 12/12/2021 02:04:05 12/07/19 22 12/06/2021 URINA LYSIS , WITH MICRO SCOPI C specific gravity, urine 1.026 . 1.001- 1.[address] [facility] (Lab) [address], [place], [address], 12/12/2021 02:04:05 12/07/19 22 12/06/2021 URINA LYSIS , WITH MICRO SCOPI C blood, urine Small negati ve abnormal Not Available [facility] (Lab) [address], [place], [address], 12/12/2021 02:04:05 12/07/19 22 12/06/2021 URINA LYSIS , WITH MICRO SCOPI C protein, UA 30 mg/dL negati ve abnormal Not Available [facility] (Lab) [address], [place], [address], 12/12/2021 02:04:05 12/07/19 22 12/06/2021 URINA LYSIS , WITH MICRO SCOPI C urobilinogen , urine <2.0 mg/dL <2.0 Not Available [facility] (Lab) [address], [place], [address], 12/12/2021 02:04:05 12/07/19 22 12/06/2021 URINA LYSIS , WITH MICRO SCOPI C nitrite, urine Negati ve negati ve Not Available [facility] (Lab) [address] [place], [address], 12/12/2021 02:04:05 12/07/19 22 12/06/2021 URINA LYSIS , WITH MICRO SCOPI C leukocyte esterase, urine Negati ve glenroy/u L negati ve Not Available [facility] (Lab) [address] [place], [address], 12/12/2021 02:04:05 12/07/19 22 12/06/2021 URINA LYSIS , WITH MICRO SCOPI C WBC, urine 0-5 /hpf none, 0-[address] [facility] (Lab) [address] [place], [address], 12/12/2021 02:04:05 12/07/19 22 12/06/2021 URINA LYSIS , WITH MICRO SCOPI C RBC, urine 0-2 /hpf none, 0-[address] [facility] (Lab) [address], [place], [address], 12/12/2021 02:04:05 12/07/19 22 12/06/2021 URINA LYSIS , WITH MICRO SCOPI C bacteria, urine None /hpf none Not Available [facility] (Lab) [address], [place], [address], 12/12/2021 02:04:05 12/07/19 22 12/06/2021 URINA LYSIS , WITH MICRO SCOPI C squamous epithelial cells, urine Trace /hpf none abnormal Not Available [facility] (Lab) [address], [place], [address], 12/12/2021 02:04:05 12/07/19 22 12/06/2021 URINA LYSIS , WITH MICRO SCOPI C mucus, urine Few /hpf none, trace, few Not Available [facility] (Lab) [address], [place], [address], 12/12/2021 02:04:05 12/07/19 22 12/06/2021 URINA LYSIS , WITH MICRO SCOPI C hyaline cast, urine 5-9 /lpf none, 0-[address] [facility] (Lab) [address], [place], [address], 12/12/2021 02:04:05 12/07/19 22 12/06/2021 CULTU RE: URINE result report SEE RESULT S BELOW Test: Cultu re: Urine Speci men Sourc e: Urine - Clean Catch Speci men Type: Urine Speci men Date: 2021 4:25 PM Resul t Date: 10:46 PM Resul t Statu s: Final resul t Abnor mal: No Resul ting Lab: [facility] [address] [facility] [address] Tel: CULTU RE ----- ----- ----- --- Cultu re resul t (>=3 organ isms prese nt) indic ates possi ble conta minat ion. Repea t cultu re if sympt oms indic ate. Not Available [facility] (Lab) [address] [place], [address], 12/12/2021 02:04:07 12/07/19 22 12/06/2021 UROGE NITAL MYCOP LASMA /UREA PLASM A PANEL RT-PC R, ONESW AB nm bkr mycoplasma genitalium by RT-PCR Negati ve Swab- 1 Vag/C erv Not Available [facility] (Lab) [address], [place], [address], 12/12/2021 02:04:07 12/07/19 22 12/06/2021 UROGE NITAL MYCOP LASMA /UREA PLASM A PANEL RT-PC R, ONESW AB nm bkr mycoplasma hominis by RT-PCR Negati ve Swab- 1 Vag/C erv Not Available [facility] (Lab) [address] [place], [address], 12/12/2021 02:04:07 12/07/19 22 12/06/2021 UROGE NITAL MYCOP LASMA /UREA PLASM A PANEL RT-PC R, ONESW AB nm bkr ureaplasma urealyticum by RT-PCR Negati ve Swab- 1 Vag/C erv Not Available [facility] (Lab) [address] [place], [address], 12/12/2021 02:04:07 12/07/19 22 12/06/2021 DAREK DA VAGIN ITIS PANEL RT-PC R, ONESW AB yosvany albicans PCR Positi ve abnormal Swab- 1 Vag/C erv Not Available [facility] (Lab) [address] [place], [address], 12/12/2021 02:04:07 12/07/19 22 12/06/2021 DAREK DA VAGIN ITIS PANEL RT-PC R, ONESW AB yosvany tropicalis PCR Negati ve Swab- 1 Vag/C erv Not Available [facility] (Lab) [address], [place], [address], 12/12/2021 02:04:07 12/07/19 22 12/06/2021 DAREK DA VAGIN ITIS PANEL RT-PC R, ONESW AB yosvany parapsilosis PCR Negati ve Swab- 1 Vag/C erv Not Available [facility] (Lab) [address], [place], [address], 12/12/2021 02:04:07 12/07/19 22 12/06/2021 DAREK DA VAGIN ITIS PANEL RT-PC R, ONESW AB yosvany glabrata PCR Negati ve Swab- 1 Vag/C erv Not Available [facility] (Lab) [address], [place], [address], 12/12/2021 02:04:07 12/07/19 22 12/06/2021 MOBIL UNCUS MULIE RIS/C URTIS HARPREET, RT-PC R, ONE SWAB nm bkr mobiluncus mulieris and mobiluncus curtisii by RT-PCR Negati ve Swab- 1 Vag/C erv Not Available [facility] (Lab) [address] [place], [address], 12/12/2021 02:04:08 12/07/19 22 12/06/2021 DAREK DA GOLDIE I BY RT-PC R yosvany krusei by RT-PCR Negati ve Swab- 1 Vag/C erv Not Available [facility] (Lab) [address] [place], [address], 12/12/2021 02:04:08 12/07/19 22 12/06/2021 BACTE RIAL VAGIN OSIS PANEL RT-PC R, ONESW AB gardnerella vaginalis PCR Negati ve Swab- 1 Vag/C erv Not Available [facility] (Lab) [address], [place], [address], 12/12/2021 02:04:08 12/07/19 22 12/06/2021 BACTE RIAL VAGIN OSIS PANEL RT-PC R, ONESW AB atopobium vaginae PCR Negati ve Swab- 1 Vag/C erv Not Available [facility] (Lab) [address], [place], [address], 12/12/2021 02:04:08 12/07/19 22 12/06/2021 BACTE RIAL VAGIN OSIS PANEL RT-PC R, ONESW AB bacterial vaginosis associated bacteria 2 (bvab2) Negati ve Swab- 1 Vag/C erv Not Available [facility] (Lab) [address] [place], [address], 12/12/2021 02:04:08 12/07/19 22 12/06/2021 BACTE RIAL VAGIN OSIS PANEL RT-PC R, ONESW AB megasphaera species (type 1 and type 2) PCR Negati ve (Type1 ,Type2 ) Swab- 1 Vag/C erv Type1 :Nega tive Type2 :Nega tive. Not Available [facility] (Lab) [address] [place], [address], 12/12/2021 02:04:08 12/07/19 22 12/06/2021 BACTE RIAL VAGIN OSIS PANEL RT-PC R, ONESW AB lactobacillu s (bvpanel) PCR See Commen t Swab- 1 Vag/C erv L.cri spatu s: Negat mi L.kp senii : Negat mi L.gas seri : Negat mi L.ine rs : Negat mi. Not Available [facility] (Lab) [address] [place], [address], 12/12/2021 02:04:08 12/07/19 22 12/06/2021 urina lysis , dipst ick Leukocytes trace Not Available [facility] racheal [address], [place], [address], 12/06/2021 14:58:18 12/07/19 22 12/06/2021 urina lysis , dipst ick Nitrite neg Not Available [facility] [address] [place], [address], 12/06/2021 14:58:18 12/07/19 22 12/06/2021 urina lysis , dipst ick Urobilinogen neg Not Available [facility] [address], [place], [address], 12/06/2021 14:58:18 12/07/19 22 12/06/2021 urina lysis , dipst ick Protein trace Not Available [facility] [address], [place], [address], 12/06/2021 14:58:18 12/07/19 22 12/06/2021 urina lysis , dipst ick pH 7 Not Available [facility] [address], [place], [address], 12/06/2021 14:58:18 12/07/19 22 12/06/2021 urina lysis , dipst ick Blood ++ Not Available [facility] [address], [place], [address], 12/06/2021 14:58:18 12/07/19 22 12/06/2021 urina lysis , dipst ick Specific Odonnell 1.010 Not Available [facility] [address], [place], [address], 12/06/2021 14:58:18 12/07/19 22 12/06/2021 urina lysis , dipst ick Ketone neg Not Available [facility] [address], [place], [address], 12/06/2021 14:58:18 12/07/19 22 12/06/2021 urina lysis , dipst ick Bilirubin neg Not Available [facility] [address], [place], [address], 12/06/2021 14:58:18 12/07/19 22 12/06/2021 urina lysis , dipst ick Glucose ++ Not Available [facility] [address], [place], [address], 12/06/2021 14:58:18 12/07/19 22 12/06/2021 urina lysis , dipst ick Appearance clear Not Available [facility] [address], [place], [address], 12/06/2021 14:58:18 12/07/19 22 12/06/2021 urina lysis , dipst ick Color yellow Not Available [facility] [address], [place], [address], 12/06/2021 14:58:18 12/29/19 22 12/28/2021 VAGIN ITIS/ VAGIN OSIS, DNA PROBE yosvany sp. detection, direct probe Negati ve negati ve Not Available [facility] (Lab) [address] [place], [address], 12/29/2021 14:28:32 12/29/19 22 12/28/2021 VAGIN ITIS/ VAGIN OSIS, DNA PROBE gardnerella vag. detection, direct probe Negati ve negati ve Not Available [facility] (Lab) [address], [place], [address], 12/29/2021 14:28:32 12/29/19 22 12/28/2021 VAGIN ITIS/ VAGIN OSIS, DNA PROBE trichomonas vag. detection, direct probe Negati ve negati ve Not Available [facility] (Lab) [address], [place], [address], 12/29/2021 14:28:32 Result Notes None recorded. Problems Name Problem SNOMED Code Status Onset Date Resolution Date Notes Provider Name and Address Organization Details Recorded Time Polycyst ic ovary syndrome 571679571 Completed 201812/05/2021 Polycyst ic ovarian syndrome ;Practic e ID: [id number] [facility] 2 12:17:54 Acute vaginiti s [id number] Completed 201812/05/2021 Acute vaginiti s;Practi ce ID: [address] [facility] 2 12:17:54 Educatio n Completed 201812/05/2021 Encounte r for oth general cnsl and advice on contrace ption;Pr actice ID: [address] [facility] 2 12:17:54 Pelvic and perineal pain [id number] Completed 201812/05/2021 Pelvic and perineal pain;Pra ctice ID: [address] [facility] 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 2 12:17:54 Pregnanc y test negative [id number] Completed 201312/05/2021 Pregnanc y examinat ion or test, negative result;R ecorded Elsewher e: No Locat ion: [facility] S ource: EHR Edge Bander Operator robb: N Practi ce ID: [id number] Dougie lable Time: 08:30:00 AM Jessica Merchant [facility] 2 12:17:54 Screenin g for malignan t neoplasm of cervix Completed 201312/05/2021 Screenin g for malignan t neoplasm s of the cervix;R ecorded Elsewher e: No Locat ion: [facility] tolu [facility] S ource: EHR Edge Bander Operator robb: N Practi ce ID: [id number] Dougie lable Time: 08:30:00 AM Jessica Merchant [facility] 2 12:17:54 Amenorrh ea [id number] Completed 201412/05/2021 Amenorrh ea;Recor ded Elsewher e: No Locat ion: [facility] S ource: EHR Edge Bander Operator robb: N Practi ce ID: [id number] Dougie lable Time: 11:00:[address] [facility] 2 12:17:53 Vaginiti s and vulvovag initis Completed 201312/05/2021 Vaginiti s;Record ed Elsewher e: No Locat ion: [facility] S ource: EHR Edge Bander Operator robb: N Practi ce ID: [id number] Dougie lable Time: 11:00:00 AM Jessica Merchant [facility] 2 12:17:54 Adult health examinat ion Completed 201312/05/2021 ROUTINE MEDICAL EXAM;Rec orded Elsewher e: No Locat ion: [facility] S ource: EHR Edge Bander Operator robb: N Practi ce ID: [id number] Dougie lable Time: 08:30:[address] [facility] 2 12:17:54 Contrace ption care manageme nt Completed 201812/05/2021 Encounte r for contrace ptive manageme nt, unspecif ied;Aubrey rded Elsewher e: No Locat ion: Daniel mot[facility] S ource: EHR Edge Bander Operator robb: N Practi ce ID: [id number] Dougie lable Time: 01:30:00 PM Jessica Merchant [facility] 2 12:17:54 Abdomina l pain [id number] Completed 201812/05/2021 Abdomina l pain;Rec orded Elsewher e: No Locat ion: [facility] S ource: EHR Edge Bander Operator robb: Timothy Watt ce ID: [id number] Dougie lable Time: 09:30:00 AM Jessica Merchant [facility] 2 12:17:54 Morbid obesity [id number] Completed 201312/05/2021 Obesity, Morbid;R ecorded Elsewher e: No [facility] S ource: EHR Edge Bander Operator robb: Timothy Watt ce ID: [id number] Dougie lable Time: 08:30:00 AM Jessica Merchant [facility] 2 12:17:54 Secondar y amenorrh ea [id number] Completed 201812/05/2021 Secondar y amenorrh ea;Recor ded Elsewher e: No [facility] S ource: EHR Edge Bander Operator robb: Timothy Watt ce ID: [id number] Dougie lable Time: 09:30:00 AM Jessica Merchant [facility] 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 2 12:17:54 Urinary tract infectio us disease [id number] Completed 201312/05/2021 Urinary Tract Infectio n;Record ed Elsewher e: No Locat ion: Mike tolu [facility] S ource: EHR Edge Bander Operator robb: N Practi ce ID: [id number] Dougie lable Time: 11:00:00 AM Jessicaaníbal Merchant [facility], [facility] [address] 12:17:[address] Concept Completed 201512/05/2021 Encntr for general adult medical exam w/o abnormal findings ;Recorde d Elsewher e: No Locat ion: Daniel motley [facility] S ource: EHR Edge Bander Operator robb: N Practi ce ID: [id number] Dougie lable Time: 11:30:00 AM Jessicaaníbal Merchant [facility], [facility] 2 12:17:54 Bipolar disorder 26260658 Active 2023 Raquel Henry [facility], [facility] 4 13:16:24 Mixed anxiety and depressi ve disorder 000293682 Active 2023 Raquel Henry [facility], [facility] 4 13:16:38 Diabetes mellitus 15786131 Active 2023 Raquel Henry [facility], [facility] 4 13:16:47 Herpesvi concepción infectio n 41274189 Active 2023 Raquel Henry [facility], [facility] 4 13:17:45 History of opioid abuse [id number] 9100 Active 2023 Raquel Henry [facility], [facility] 4 13:18:49 Schizoph yo 58691776 Active 2023 [facility] hospital, [facility] 4 13:19:17 Acid reflux [id number] Completed 201912/05/2021 Jessica Merchant [facility], [facility] 2 12:17:54 Anxiety [id number] Completed 201912/05/2021 Jessica Merchant [facility], [facility] 2 12:17:54 Depressi ve disorder [id number] Completed 201912/05/[address] [facility] 2 12:17:54 Mood disorder [id number] Completed 201912/05/[address] [facility] 2 12:17:54 Migraine [id number] Completed 201912/05/[address] [facility] 2 12:17:54 History of surgery [id number] Completed 201912/05/[address] [facility] 2 12:17:53 Seizure disorder [id number] Completed 201912/05/[address] [facility] 2 12:17:53 Herpes simplex [id number] Completed 201912/05/20[address] [facility] 2 12:17:54 Problem Notes None recorded. Procedures Surgical History Date Name Laterality Status Provider Name and Address Organization Details Recorded Time 06/02/[address] segment monitoring completed Raquel Henry [facility] 06/17/2024 13:23:05 09/09/19 24 excision of skin tag completed Raquelclinton Henry [facility] 06/17/2024 13:23:21 excision of bunion completed Raquelclinton Henry [facility] 06/16/2024 20:28:38 Oral surgery procedure completed [facility] 06/17/2024 13:23:41 excision of bunion completed Raquelclinton Henry [facility] 08/26/2020 14:22:06 excision of bunion completed [facility] 08/26/2020 14:22:09 Arthrd pst tq 1ntrspc lumbar completed [facility] 08/26/2020 14:22:44 Colonoscopy completed [facility] 08/26/2020 14:22:53 endoscopy completed [facility] 08/26/2020 14:23:06 Imaging Results None recorded. Procedure Notes None recorded. Medical Equipment None Reported. Allergies Allergen ID Allergen Name Allergen Category Reaction Reaction Severity Criticality Documentation Date Start Date Code Code System Note Provider Name and Address Organization Details Recorded Time [id number]|2025-01-22 18:19:00|2025-01-22 18:19:00|XMS_ITS|[facility] DAEMON|External Medical Summaries|[id number]|" Encounter Summary Created on: January 22, 2025 Kathy Malcolm : 1985 Sex: Female Author Organization [facility] Healthcare Address [address] [place] [id number] Care Team Providers Care Formula Checker Name Role Phone Sanaz Kraus NP Primary Care Provider [phone] Cristo Fernandez MD Unavailable [phone] Reason for Visit * Reason Onset Date Comments repatha appeal 01/20/2025 Encounter Details Date Type Department Care Team (Late st Contact Info) Description 01/20/2025 Telephone [facility] Family Medicine at [address] [place] [address] Sanaz Kraus, LEAD CLINICAL RESEARCH COORDINATOR [address] [place] [address] [address] [place] [address] athheidi appeal Social History Tobacco Use Types Packs/Day Years Used Date Smoking Tobacco: Never Smokeless Tobacco: Never Alcohol Use Standard Drinks/Week Comments Never 0 (1 standard drink = 0.6 oz pur e alcohol) AUDIT-C Answer Date Recorded Q1: How often do you have a drink containing alcohol? Never 06/14/2024 Q2: How many drinks containi ng alcohol do you have on a typical day when you are drinking? Patient does not drink Q3: How often do you have si x or more drinks on one occasion? Never 06/14/2024 PHQ-2 Answer Date Recorded PHQ-2 Total Score (If total score is 3 or more points, staff should administer the PHQ-9) 0 06/14/2024 PHQ-9 Answer Date Recorded PHQ-9 Total Score 0 06/14/2024 Personal Safety Answer Date Recorded Have you ever been in or are you currently in a harmful physical or emotional relationship or is someone making you feel afraid or unsafe? 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 Sent for appeal to [phone] * Telephone Encounter - Ruthann Foy RN - 01/20/2025 9:34 AM CDT I have appeal paperwork for repatha. Called and informed patient that we need her signature for theappeal. She will come up tomorrow. Paperwork on my desk documented in this encounter Plan of Treatment Not on file documented as of this encounter Goals Goal Patient Goal Type Associated Problems Recent Progress Patient-Stated? Author CCM Chronic Pain Care Plan Chronic Care Management No Isabelle Jo RN Note: Problem: Chronic Pain Goals: 1. Minimize further functional decline 2. Maximize quality of life 3. Control pain Strategies: - Activity/exercise program recommendation - Conservative stepwise pain medicine strategy with multi-disciplinary approach - Recommend healthy lifestyle strategies and compensatory methods as needed documented as of this encounter Visit Diagnoses Not on filedocumented in this encounter Care Teams Formula Checker Relationship Specialty Start Date End Date Sanaz Kraus NP [address] [place] [address] [place] [id number] PCP - General Family Medicine 06/09/23 Cristo Fernandez MD [address] [place] [address] Referring Physician Psychiatry & Neurology 06/14/24 documented as of this encounter "
--- OUTSIDE RECORDS SUMMARY | 2025-01-22 16:41 | XMS_ITS | Clinical Summary ---
Author Organization [facility] [id number] [facility] Address [address] [place] [id number] Care Team Providers Care Hot Pond Operator Name Role Phone Sanaz Kraus NP Primary Care Provider [phone] Cristo Fernandez MD Unavailable [phone] Allergies Active Allergy Reactions Criticality Noted Date Comments Adhesive Tape-Silicones Rash,Itching Medium 03/21/2016 Sulfamethoxazole-Trimet hoprim Unknown 12/15/2023 Codeine Edema,Shortness of breath,Unknown High 03/21/2016 Breathing Difficulty Haloperidol Other (See comments) Low 05/18/2024 Panic Levofloxacin Other (See comments),Rash,Stom ach upset,Unknown High 03/21/2016 Stomach/GI Upset Morphine Headache Low 12/20/2020 Penicillin Unknown 06/14/2024 Penicillin G Potassium Rash Medium 09/02/2019 Penicillins Unknown 03/21/2016 unknown Tkktutn-Vqa-Jka Reductase Inhibitors Muscle pain Medium 10/28/2023 Adhesive Rash Medium 09/02/2019 Medications Microlet Lancet misc 2020 Active lancets 30 gauge misc 2 (two) times a day Active blood glucose diagnostic (glucose blood) stripIndications:Uncon trolled type 2 diabetes mellitus with hyperglycemia (HCC) Daily before breakfast 100 each 2 2022 Active blood-glucose meter kitIndications:Uncontr olled type 2 diabetes mellitus with hyperglycemia (HCC) Test blood sugar bid 1 kit 2022 Active ondansetron (ZOFRAN) 4 mg tablet Take 1 tablet (4 mg total) by mouth every 8 (eight) hours as needed for nausea 20 tablet 2023 Active blood glucose diagnostic (OneTouch Verio test strips) strip Use to test twice a day 200 each 11 2023 Active potassium chloride (Klor-Con) 20 mEq packet Take 1 packet (20 mEq total) by mouth daily as needed Active dulaglutide (TRULICITY) 4.5 mg/0.5 mL pen injectorIndications:Ty pe 2 diabetes mellitus with hyperglycemia, without long-term current use of insulin (HCC) Inject 0.5 mL (4.5 mg total) under the skin every 7 days 6 mL 3 06/14 Active sertraline (ZOLOFT) 100 mg tabletIndications:Schi zoid personality disorder (HCC) Take 1 tablet (100 mg total) by mouth 2 (two) times a day 2023 Active divalproex ER (DEPAKOTE ER) 500 mg 24 hr tabletIndications:Seiz ure disorder (HCC) Take 1 tablet (500 mg total) by mouth 2 (two) times a day Must keep follow up appointment 2023 Active QUEtiapine (SEROquel) 300 mg tabletIndications:Schi zoaffective disorder, bipolar type (HCC) TAKE 1 TABLET BY MOUTH EVERY DAY AT NIGHT 90 tablet 1 2023 Active nystatin-triamcinolone ointment Apply topically 2 (two) times a day 15 g 2024 Active fenofibrate nanocrystallized (TRICOR) 145 mg tabletIndications:Mixe d hyperlipidemia Take 1 tablet (145 mg total) by mouth daily 100 tablet 2024 Active gabapentin (NEURONTIN) 800 mg tabletIndications:Serg iated lumbar intervertebral disc Take 1 tablet (800 mg total) by mouth 3 (three) times a day 90 tablet 3 2024 Active traZODone (DESYREL) 50 mg tabletIndications:Schi zoaffective disorder, bipolar type (HCC) Take 1 tablet (50 mg total) by mouth daily as needed for sleep 30 tablet 2024 Active ezetimibe (ZETIA) 10 mg tablet Take 1 tablet (10 mg total) by mouth daily 90 tablet 3 2024 Active evolocumab (REPATHA) syringe syringeIndications:Ess ential familial hypercholesterolemia Inject 1 mL (140 mg total) under the skin every 14 (fourteen) days 2 mL 3 2024 Active cyclobenzaprine (FLEXERIL) 5 mg tablet Take 1 tablet (5 mg total) by mouth 3 (three) times a day as needed for muscle spasms 30 tablet 2024 Active butalbital-acetaminoph en-caffeine (ESGIC) 50-325-40 mg per tabletIndications:Die Maker Stamping robb migraine without aura without status migrainosus, not intractable Take 1 tablet by mouth every 6 (six) hours as needed for headaches Use no more than 5/day, 10/week, 10 tablet 2024 Active QUEtiapine (SEROquel) 25 mg tabletIndications:Schi zoaffective disorder, bipolar type (HCC) TAKE 1 TABLET (25 MG TOTAL) BY MOUTH ALIGNER BEFORE BREAKFAST IN AM, 300 MG IN THE EVENING 90 tablet 1 2024 Active cyclobenzaprine (FLEXERIL) 5 mg tablet TAKE 1 TABLET (5 MG TOTAL) BY MOUTH 2 (TWO) TIMES A DAY NEEDED FOR MUSCLE SPASMS. 60 tablet 1 01/08 Discontinued( Reorder) QUEtiapine (SEROquel) 25 mg tabletIndications:Schi zoaffective disorder, bipolar type (HCC) TAKE 1 TABLET (25 MG TOTAL) BY MOUTH ALIGNER BEFORE BREAKFAST IN AM, 300 MG IN PM 90 tablet 1 01/12 Discontinued butalbital-acetaminoph en-caffeine (ESGIC) 50-325-40 mg per tabletIndications:Die Maker Stamping robb migraine without aura without status migrainosus, not intractable Take 1 tablet by mouth every 6 (six) hours as needed for headaches Use no more than 5/day, 10/week, 30 10 tablet 01/10 Discontinued( Reorder) methylPREDNISolone (MEDROL DOSEPACK) 4 mg Dosepack Take as directed on package. 21 tablet 01/14 Active Problems Problem Noted Date Diagnosed Date Herpesvirus infection 06/17/2024 History of opioid abuse 06/17/2024 Bipolar disorder 06/17/2024 Mixed anxiety and depressive disorder 06/17/2024 Schizophrenia 06/17/2024 Chronic fatigue 06/14/2024 Degenerative disc disease, cervical 06/14/2024 Degenerative disc disease, lumbar 06/14/2024 Dependence on other enabling machines and device s 06/14/2024 Opioid use disorder 05/26/2024 Overview (05/26/2024): Chronic. Uncontrolled. Recommend to discontinue Suboxone. Elevated alkaline phosphatase in 024 Hyponatremia 05/18/2024 Narcotic withdrawal 05/18/2024 Multilevel degenerative disc disease 05/18/2024 Chronic pain of both knees 02/26/2024 Assessment & Plan (02/26/2024 3:01 PM CDT): HPI: Condition is not at/near goal. Take she previously used to do physical therapy for her left knee and started feeling better so she stopped physical therapy. Requesting order to start again. A&P: Discussed/ordered labs. Referral placed for PT. Chronic epigastric pain 12/15/2023 Assessment & Plan (12/15/2023 12:21 PM CDT): HPI: Condition is not at/near goal. Did see patient in office on 11/13/2023 where she was complaining of severe constipation. Patient had stated she did not have a bowel movement in 7 days. Patient had tried multiple nyiy-eng-mvfnule remedies including Fleet enemas without relief. Did order abdominal x-ray that showed large amounts of stool in the colon. No obstruction. I started patient on Linzess - gave samples in office at that visit and sent scipt to pharmacy. Educated patient to maintain a high fiber diet with plenty of roughage, and 6-8 large glasses of water daily to avoid constipation in the future. Timing elimination to occur after meals, or after a hot drink, can also improve the situation superintendent terminal. Patient still feeling bloated and full with generalized abdominal pain. Has been treated for GERD in the past but states there is no PPI that will work for her. A&P: Will order CT abdomen with contrast. Will send carafate to trial. Pain due to dental caries 12/03/2023 Assessment & Plan (12/03/2023 1:17 PM CDT): HPI: Condition is not at/near goal. Patient has multiple teeth that are causing pain. She has been told in the past that she needs an oral surgeon but is not able to get to one with her insurance. Have sent patient to [facility] in the past, but patient missed 2 different appointments and is no longer able to go back. A&P: No concern for dental abscess/infection at the time from physical exam. Discussed with staff to reach out to patient/contact social work to get patient a resource. Skin tag 09/09/2023 Migraine without status migrainosus, not intract able 07/27/2023 Assessment & Plan (12/15/2023 9:59 AM CDT): HPI: Condition is not at/near goal. Patient reports a few migraines per month and states that they are well controlled with ESGIC. A&P: Continue taking ESGIC 50-325-40 mg tablet every 6 hours as needed for migraine. Discussed avoiding all caffeine: no soda, tea, coffee, chocolate; no wine; no sharp cheeses; no processed meats like hot dogs or bologna; no MSG as found in bruneian food; no more than 1/2 banana a day; no artificial sweeteners; fresh bread (less than 24 hours old). Avoid using tylenol, ibuprofen or aleve more than twice a week or else you can cause medication overuse/rebound headaches. You may be causing the headaches with the medications you are taking to get rid of them. Be sure to push lots of water as dehydration is a big cause of headaches. Assessment & Plan (07/27/2023 9:16 PM DENTAL NURSE): HPI: Condition is stable. Patient reports a few migraines per month and states that they are well controlled with ESGIC. Patient requesting refill. A&P: Continue taking ESGIC 50-325-40 mg tablet every 6 hours as needed for migraine. Discussed avoiding all caffeine: no soda, tea, coffee, chocolate; no wine; no sharp cheeses; no processed meats like hot dogs or bologna; no MSG as found in bruneian food; no more than 1/2 banana a day; no artificial sweeteners; fresh bread (less than 24 hours old). Avoid using tylenol, ibuprofen or aleve more than twice a week or else you can cause medication overuse/rebound headaches. You may be causing the headaches with the medications you are taking to get rid of them. Be sure to push lots of water as dehydration is a big cause of headaches. Pneumonia 07/24/2023 Assessment & Plan (07/27/2023 9:12 PM DENTAL NURSE): HPI: Condition is improving, but not at goal. Patient reports she was seen in [facility] on 07/18/23 where she was diagnosed with pneumonia. Patient originally given antibiotic in which she is not sure what the name was - but returned to [facility] on 07/21 2023 with other respiratory symptoms and was diagnosed with a left ear infection, thrush, and strep throat. Patient was then given cephalexin 500 mg twice daily for 10 days along with nystatin and Flonase. A&P: Patient to continue antibiotic regimen. Refill for albuterol inhaler given. Repeat chest x-ray ordered for 6 weeks. Patient to return to clinic if develop a fever, symptoms worsen, or do not improve within 3-4 days. Please consider the albuterol as a rescue only medication. If needing the albuterol more than 2xwk (with the exception if you are using it pre-exercise), please contact office. Current guidelines are also to give a steroid inhaler short term if you are having an asthma flare. Please reach out to our office and we will send this in for you. Please note, when using steroid inhaler, you will need to rinse your mouth well after use to avoid thrush (yeast infection of the mouth). Fibromyalgia syndrome 07/09/2023 Overview (06/14/2024): Ask psychiatrist option of transition from sertaline to duloxetine (FDA approved for lumbar spine pain and fibromyalgia) and PCP for gabapentin to pregabalin. Vitamin D deficiency 06/10/2023 Seasonal allergic rhinitis due to pollen 023 Assessment & Plan (06/09/2023 1:11 PM CDT): HPI: Condition is not at/near goal A&P: Discussed environmental controls No smoking around patient, no animals in bedroom, keep windows closed, no hanging clothes on the line Take zyrtec/claritin/itzel in the am Saline rinse in the am Flonase 1 sprays each nostril, aim away from cartilage, spray once-baby sniff, switch to the other nostril and repeat. Saline rinse about 15 min before bed Flonase 1 sprays each nostril, aim away from cartilage, spray once-baby sniff, switch to the other nostril and repeat. If working or playing outside, may need to do saline rinses when coming in and change clothes right away Recommend staying on the above treatment from the beginning of November to Come off of meds if possible during the summer Then restart on meds mid to late April until Come off of meds if possible during the winter Cervical pain 03/27/2023 Assessment & Plan (02/26/2024 3:29 PM CDT): HPI: Condition is not at/near goal. Patient has had chronic cervical, thoracic, and lumbar back pain for many years. Patient has had imaging in the past showing mild cervical and thoracic degenerative disc disease along with disc protrusion and cord compression of her thoracic spine. She saw Dr. Ludwig with Neurosurgery where he recommended surgery but patient needed to be closer to 250 lb prior to being a candidate. 01/07/24: Saw patient in office for something n ew with her neck. Patient denies any specific injury but states that she noticed a change and that there is something wrong and would like updated MRI's. She did ask for steroids at this time but I declined as her A1C is uncontrolled, she has not had updated blood work, and is on multiple scheduled pain medications. 01/28/24: States MRIs are scheduled for 02/12/24 but is requesting steroids - specifically Prednisone 10mg and states that the pain is just too much to bear. Did offer Percocet instead of Hawi to try something different and patient declines and states that Percocet does not work. Patient requested repeat MRI of cervical, thoracic, and lumbar spine. 02/26/24: MRIs scheduled for patient to pay out of pocket. Is asking for medical marijuana today. Continues to deny any incontinence of bowel or bladder but does report baseline numbness and tingling in predominantly her left arm and left leg. Patient has had EMG in the past and is treated with gabapentin for neuropathy. She is currently on gabapentin 800 mg tablet up to 3 times a day, Valium 5 mg up to 3 times a day, hydrocodone-acetaminophen 7.5-325 mg tablet as needed every 6 hours for pain. Also taking ESGIC for migraines. Discussed that she is taking multiple scheduled medications with dependency - encouraged patient to come down Valium since she states it helps the least amount. Patient states y ou can take the Valium away I hardly even use it and it does not really work . She also states that she feels like she would need inpatient treatment to come off the Hawi and admits to taking more than 1 at a time. She is also asking for 1 dose of Trazadone for her MRIs as they give her anxiety. A&P: Discussed/ordered labs. Continue on gabapentin 800 mg tablet up to 3 times a day, hydrocodone- acetaminophen 7.5-325 mg tablet as needed every 6 hours for pain. Will discontinue Valium off medication list since patient is not taking and instead initiate process for medical marijuana. Did recommend 6 weeks of physical therapy for back and neck prior to repeat imaging - continues to decline. Repeat cervical, thoracic, and lumbar MRI scheduled for 02/28/24 - will follow up pending results. Recommend making appointment with Neurosurgery to re-evaluate and for continued management. Recommend continuing to see counselor, medical social worker, pain management, and psychiatry. Assessment & Plan (01/29/2024 8:17 AM CDT): HPI: Condition is not at/near goal. Patient has had chronic cervical, thoracic, and lumbar back pain for many years. Patient has had imaging in the past showing mild cervical and thoracic degenerative disc disease along with disc protrusion and cord compression of her thoracic spine. She saw Dr. Ludwig with Neurosurgery where he recommended surgery but patient needed to be closer to 250 lb prior to being a candidate. 01/07/24: Saw patient in office for something n ew with her neck. Patient denies any specific injury but states that she noticed a change in that there is something wrong and would like updated MRI's. She did ask for steroids at this time but I declined as her A1C is uncontrolled, she has not had updated blood work, and is on multiple scheduled pain medications. Today 01/28/24: She states MRIs are scheduled for 02/12/24 but is requesting steroids - specifically Prednisone 10mg and states that the pain is just too much to bear. Did offer Percocet instead of Hawi to try something different and patient declines and states that Percocet does not work. Patient is on multiple scheduled medications and medications for schizoaffective disorder as well as is an uncontrolled diabetic that has had a lot of recent steroid therapy. She denies any incontinence of bowel or bladder but does report baseline numbness and tingling in predominantly her left arm and left leg. Patient has had EMG in the past and is treated with gabapentin for neuropathy. Patient requesting repeat MRI of cervical, thoracic, and lumbar spine. A&P: Discussed/ordered labs. Continue on gabapentin 800 mg tablet up to 3 times a day, hydrocodone- acetaminophen 7.5-325 mg tablet as needed every 6 hours for pain. Did recommend 6 weeks of physical therapy prior to repeat imaging - patient would really prefer to have imaging ordered now despite recommendation. Repeat cervical, thoracic, and lumbar MRI scheduled for 02/12/24 - will follow up pending results. Recommend making appointment with Neurosurgery to re-evaluate and for continued management. Assessment & Plan (01/07/2024 12:58 PM CDT): HPI: Condition is not at/near goal. Patient has had chronic cervical, thoracic, and lumbar back pain for many years. Patient has had imaging in the past showing mild cervical and thoracic degenerative disc disease along with disc protrusion and cord compression of her thoracic spine. She saw Dr. Ludwig with Neurosurgery where he recommended surgery but patient needed to be closer to 250 lb prior to being a candidate. Today, patient reports that over the past few days she is noticed something n ew with her neck. Patient denies any specific injury but states that she noticed a change in that there is something wrong. Patient is on multiple scheduled medications and medications for schizoaffective disorder as well as is an uncontrolled diabetic that has had a lot of recent steroid therapy. She denies any incontinence of bowel or bladder but does report baseline numbness and tingling in predominantly her left arm and left leg. Patient has had EMG in the past and is treated with gabapentin for neuropathy. Patient in between jobs at this time and just started a new position where she plans to get good insurance coverage. Patient requesting repeat MRI of cervical, thoracic, and lumbar spine. A&P: Discussed/ordered labs. Continue on gabapentin 800 mg tablet up to 3 times a day, hydrocodone- acetaminophen 7.5-325 mg tablet as needed every 6 hours for pain. Did recommend 6 weeks of physical therapy prior to repeat imaging - patient would really prefer to have imaging ordered now despite recommendation. We will order repeat cervical, thoracic, and lumbar MRI. Recommend making appointment with Neurosurgery to re-evaluate and for continued management. Constipation 10/29/2022 Assessment & Plan (12/03/2023 1:19 PM CDT): HPI: Condition is not at/near goal. Has been long standing issue for patient due to chronic opioid use. Patient has tried and failed with Metamucil, magnesium citrate, Doculax, Miralax, and fleet enema. Last BM was 7 days ago. Admits to nausea, abdominal pain, and reflex. Denies any vomiting. A&P: Abdomen hard and firm on exam. Will order abdominal xray to look for bowel and gas patterns and to rule out obstruction. Will start patient on Linzess 145 mcg daily - did give patient 3 boxes of samples. Patient to call office within the next day or 2 if no BM. Assessment & Plan (06/09/2023 12:36 PM CDT): HPI: Condition is stable A&P: Discussed/ordered labs, encouraged healthy, low carbohydrate lifestyle and at least 150min/week of exercise For the constipation - push fluids, for the first 3 days may use Miralax 1 capful three times a day x 3 days along with 1 Ex-Lax chew daily x 3 days, then decrease Miralax to 2-3 times a week. Maintain a high fiber diet with plenty of roughage, and 6-8 large glasses of water daily to avoid constipation in the future. Timing elimination to occur after meals, or after a hot drink, can also improve the situation superintendent terminal. Degeneration of lumbar intervertebral disc 10/29 Assessment & Plan (01/07/2024 12:57 PM CDT): HPI: Condition is not at/near goal. Patient has had chronic cervical, thoracic, and lumbar back pain for many years. Patient has had imaging in the past showing mild cervical and thoracic degenerative disc disease along with disc protrusion and cord compression of her thoracic spine. She saw Dr. Ludwig with Neurosurgery where he recommended surgery but patient needed to be closer to 250 lb prior to being a candidate. Today, patient reports that over the past few days she is noticed something n ew with her neck. Patient denies any specific injury but states that she noticed a change in that there is something wrong. Patient is on multiple scheduled medications and medications for schizoaffective disorder as well as is an uncontrolled diabetic that has had a lot of recent steroid therapy. She denies any incontinence of bowel or bladder but does report baseline numbness and tingling in predominantly her left arm and left leg. Patient has had EMG in the past and is treated with gabapentin for neuropathy. Patient in between jobs at this time and just started a new position where she plans to get good insurance coverage. Patient requesting repeat MRI of cervical, thoracic, and lumbar spine. A&P: Discussed/ordered labs. Continue on gabapentin 800 mg tablet up to 3 times a day, hydrocodone- acetaminophen 7.5-325 mg tablet as needed every 6 hours for pain. Did recommend 6 weeks of physical therapy prior to repeat imaging - patient would really prefer to have imaging ordered now despite recommendation. We will order repeat cervical, thoracic, and lumbar MRI. Recommend making appointment with Neurosurgery to re-evaluate and for continued management. Assessment & Plan (06/09/2023 1:14 PM CDT): HPI: Condition is stable A&P: Discussed/ordered labs, encouraged healthy, low carbohydrate lifestyle and at least 150min/week of exercise, continue on gabapentin 100 mg tablet up to 3 times a day, hydrocodone-acetaminophen 7.5-325 mg tablet as needed every 6 hours for pain. Patient reports seing ortho here at [facility], and states they want to do surgery on her back but not until she is under 250 lb. Patient reports interest in getting help with her weight management. Patient states she has an appointment with Dr. Myers for weight control Posttraumatic stress disorder 10/29/2022 Assessment & Plan (06/09/2023 1:11 PM CDT): Patient reiterated no suicidal thoughts at this time; take medication as directed; contact 911 and go to the ER if becomes suicidal; discussed side effects of medication with patient; encouraged healthy diet and exericise; encouraged patient to see a counselor. HPI: Condition is stable. Pt reports [facility]. Pt sees counselor - next apt today 06/09/23 at 1pm. A&P: Discussed/ordered labs, encouraged healthy, low carbohydrate lifestyle and at least 150min/week of exercise, continue on sertraline 100 mg tablet twice daily, Seroquel 300 mg tablet nightly, Depakote extended release 500 mg tablet 3 times a day, diazepam 5 mg tablet up to every 8 hours as needed - not every day but multiple times a week as needed. Patient encouraged to see Psychology Fibromyalgia 10/29/2022 Assessment & Plan (02/26/2024 3:06 PM CDT): HPI: Condition is not at/near goal. Patient complaining of acute on chronic brain fog which we have discussed in the past could be due to weight, chronic pain, or extensive medication use. Patient does have multiple complaints including generalized fatigue, joint pain, and cloudy memory that she is attributing to her fibromyalgia diagnosis. We did send her to rheumatology 07/2023 and she reports not knowing why she never followed up with them. A&P: Continue on gabapentin 100 mg tablet up to 3 times a day and hydrocodone-acetaminophen 7.5-325 mg tablet as needed every 6 hours for pain. Encouraged to follow up with rheumatology, psych, and pain management. Assessment & Plan (06/09/2023 12:35 PM CDT): HPI: Condition is stable A&P: Discussed/ordered labs, encouraged healthy, low carbohydrate lifestyle and at least 150min/week of exercise, continue on gabapentin 100 mg tablet up to 3 times a day, hydrocodone-acetaminophen 7.5-325 mg tablet as needed every 6 hours for pain. Patient encouraged to see psych and pain management Bipolar II disorder 07/10/2022 Assessment & Plan (06/09/2023 1:11 PM CDT): Patient reiterated no suicidal thoughts at this time; take medication as directed; contact 911 and go to the ER if becomes suicidal; discussed side effects of medication with patient; encouraged healthy diet and

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
--- OUTSIDE RECORDS SUMMARY | 2025-01-22 16:41 | XMS_ITS | Encounter Summary ---
Author Organization [facility] Address [address] [place] [address] Care Team Providers Care Tool Planer Set Up Operator Name Role Phone Sanaz Kraus NP Primary Care Provider [phone] Cristo Fernandez MD Unavailable [phone] Reason for Visit * Reason Onset Date Comments fahad gabriel 01/20/2025 Encounter Details Date Type Department Care Team (Late st Contact Info) Description 01/20/2025 Telephone [facility] Family Medicine at [address] [place] [address] Sanaz Kraus NP [address] [place] [address] fahad gabriel Social History Tobacco Use Types Packs/Day Years [...] on file 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 Sent for appeal to [phone] * Telephone Encounter - Ruthann Foy RN - 01/20/2025 9:34 AM CDT I have appeal paperwork for [email or web address]. Called and informed patient that we need [...] on filedocumented in this encounter Care Teams Tool Planer Set Up Operator Relationship Specialty Start Date End Date Sanaz Kraus NP [address] [place] [address] PCP - General Family Medicine 06/09/23 Cristo Fernandez MD [address] [place] [address] Referring Physician Psychiatry & Neurology 06/14/24 documented as of this encounter
--- OUTSIDE RECORDS SUMMARY | 2025-01-22 16:41 | XMS_ITS | Clinical Summary ---
Author Organization [facility] [employer] Address [address] [place] [address] Care Team Providers Care Shift Engineer Name Role Phone Unavailable Primary Care Provider Unavailabl e Source Comments [facility] [employer]non-owned Affiliates and Associated Physician Practices is amultiple site organization consisting of ambulatory clinics and hospital sitesin [place], [place], [place] and [place]. This disclosure is being madepursuant to the Care Everywhere program and may not contain all information available regarding this patient. Last updated 18.[facility] [employer] Allergies Active Allergy Reactions Criticality Noted Date Comments Adhesive Sensitivity Rash Medium 03/21/2016 Codeine Anaphylaxis,Other,Sh o rtness of Breath High 03/21/2016 Breathing Difficulty Levofloxacin Other,Rash,GI Discomfort High 03/21/2016 Stomach/GI Upset Morphine Headache Low 12/20/2020 Penicillins Other,Rash,Unknown Medium 03/21/2016 unknown Medications * Be aware that medications may not be up to date on this document. Alwaysverify current medications with the patient. Blood Glucose Monitoring Suppl (ONE TOUCH ULTRA 2) w/Device KIT TEST BLOOD SUGAR TWICE A DAY 3 Active butalbital-acet aminophen-caffe ine (Fioricet) 50-325-40 MG tablet TAKE 1 TABLET BY MOUTH EVERY 6 HOURS NEEDED FOR HEADACHES (NO MORE THAN 5/DAY, 10/WEEK, 30/MONTH) 3 Active clotrimazole (Lotrimin AF) 1 % cream to affected area 3 Active diazePAM (Valium) 5 MG tablet Take 1 (one) tablet by mouth every 8 hours as needed For muscle spasms. 3 Active divalproex ER 24hr (Depakote ER) 500 MG tablet TAKE 1 TABLET BY MOUTH THREE TIMES A DAY FOR 30 DAYS 3 Active Jardiance 10 MG tablet Take 1 (one) tablet by mouth once daily 3 Active vitamin D, ergocalciferol, (Drisdol) 1.25 MG (52619 UT) capsule TAKE 1 CAPSULE BY MOUTH ONE TIME PER WEEK 2 Active ezetimibe (Zetia) 10 MG tablet Take 1 (one) tablet by mouth once daily 3 Active fenofibrate (Tricor) 145 MG tablet Take 1 (one) tablet by mouth once daily 3 Active fluticasone propionate (Flonase) 50 MCG/ACT nasal spray ADMINISTER 2 SPRAYS INTO EACH NOSTRIL DAILY FOR 10 DAYS. 2 Active gabapentin (Neurontin) 800 MG tablet Take 1 (one) tablet by mouth 3 times daily 3 Active blood glucose ([employer] Blood Glucose Test) test strip Daily before breakfast 3 Active HYDROcodone-jeronimo taminophen (Hecker) 7.5-325 MG tablet Take 1 (one) tablet by mouth every 6 hours as needed pain 3 Active hydrOXYzine HCl (Atarax) 50 MG tablet Take 1 (one) tablet by mouth 2 times daily as needed 2 Active Lancets 30G MISC 2 times daily Active lidocaine (Lidoderm) 5 % patch Apply 1 (one) patch to skin as needed Active metroNIDAZOLE vaginal (Metrogel - Vaginal) 0.75 % vaginal gel APPLY TO VAGINA NIGHTLY FOR 5 NIGHTS. 3 Active ondansetron, disintegrating, (Zofran ODT) 8 MG tablet Take 1 (one) tablet by mouth every 8 hours as needed 2 Active QUEtiapine (SEROquel) 300 MG tablet Take 1 (one) tablet by mouth at bedtime 3 Active sertraline (Zoloft) 100 MG tablet Take 2 (two) tablets by mouth once daily 3 Active SITagliptin (Januvia) 100 MG tablet Take 1 (one) tablet by mouth once daily 3 Active triamcinolone acetonide (Kenalog) 0.1 % ointment to affected area 2 Active Active Problems Problem Noted Date Diagnosed Date Fibromyalgia syndrome/Central pain amplification 07/09/2023 Overview (07/09/2023): Ask psychiatrist option of transition from sertaline to duloxetine (FDA approved for lumbar spine pain and fibromyalgia) and PCP for gabapentin to pregabalin. 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 Gender Identity Not on file Sexual Orientation Not on file Last Filed Vital Signs Vital Sign Reading Time Taken Comments Blood Pressure 110/80 07/09/2023 3:15 PM CDT Pulse 86 07/09/2023 3:15 PM CDT Temperature 36.7 C (98 F) 07/09/2023 3:15 PM CDT Respiratory Rate 16 07/09/2023 3:15 PM CDT Oxygen Saturation 95% 07/09/2023 3:15 PM CDT Inhaled Oxygen Concentration - - Weight 136.1 kg (300 lb) 07/09/2023 3:15 PM CDT Height 177.8 cm (5' 10 ) 07/09/2023 3:15 PM CDT Body Mass Index 43.05 07/09/2023 3:15 PM CDT Plan of Treatment Health Maintenance Due Date Last Done Comments MAMMOGRAM 1985 PAP SMEAR 1985 HIV SCREENING 01/13/2000 HEPATITIS C SCREENING 01/08/2003 DTAP/TDAP/TD VACCINES (1 - Tdap) 01/13/2004 HEPATITIS B VACCINE (1 of 3 - 19+ 3-dose series) 01/13/2004 COVID-19 VACCINE ( - 2023-2 5 season) 2024 DEPRESSION SCREENING 09/08/2024 INFLUENZA VACCINE (Season Ended) 2025 05/14/2022, 09/27/2021, 10/04/2020 LIPID TESTING 06/09/2028 06/09/2023 ZOSTER VACCINE (1 of 2) 2035 HIB VACCINE Aged Out No longer eligi ble based on patient's age to complete this topic HPV VACCINE Aged Out No longer eligi ble based on patient's age to complete this topic MENINGOCOCCAL (Group B) VACCINE SHARED DECISION-MAKING Aged Out No longer eligible based on patient's age to complete this topic MENINGOCOCCAL GROUPS A/C/Y/W VACCINE Aged Out No longer eligible b ased on patient's age to complete this topic PNEUMOCOCCAL VACCINE Aged Out No long er eligible based on patient's age to complete this topic [place] [address] [place] [address]
--- OUTSIDE RECORDS SUMMARY | 2025-01-22 16:41 | XMS_ITS | Clinical Summary ---
Author Organization [facility] Address [address] [place] [address] Phone Care Team Providers Care Route Clerk Name Role Phone Fadi Myers MD Primary Care Provider [phone] Allergies Active Allergy Reactions Criticality Noted Date [...] = 0.6 oz pur e alcohol) occassionally [facility] Utilities Answer Date Recorded In the past 12 months has e [employer], [employer], oil, or water [employer] [facility] threatened to shut off services in your [...] any time in the past 12 m [facility], were you homeless or living in a usp (including now)? No 05/18/2024 Comments No Sex [...] (CCS) 2015 HPV/Cotest 2015 Influenza Immunization (#1) 2024 02/2 , 10/16/2023, 05/14/2022, Additional history exists SARS-COV-2 Immunization ( season) 2024 10/16/2023, 05/14/2022, 09/27/2021, Additional history exists Diabetes: [...] w/ Estimated Glucose (05/18/2024 3:18 PM CDT) HGB-A1C 6.3(H) 4.0 - 6.0 % 05/18/2024 5:37 PM CDT [facility] Est Average Glucose 134.1 mg/dL 05/18/2024 5:37 PM CDT [facility] Blood Venipuncture / Unknown 05/18/2024 3:18 PM CDT 05/18/2024 3:27 PM CDT Narrative [facility] - 05/18/2024 5:37 PM CDT HEMOGLOBIN A1C: DIABETIC PATIENTS: WELL-CONTROLLED: 6.2 - 7.0 INTERMEDIATE WELL-CONTROLLED: 7.0 - 9.0 POORLY-CONTROLLED: >9.0 us Magalie Muller MD CHEMISTRY ORDERABLES Final Res ult [facility] [address] [place] [address] * (ABNORMAL) CMP (Comprehensive Metabolic Panel) (05/18/2024 3:18 PM CDT) SODIUM 140 136 - 145 mmol/L 05/18/2024 4:13 PM CDT [facility] POTASSIUM 3.8 3.5 - 5.1 mmol/L 05/18/2024 4:13 PM CDT [facility] CHLORIDE 106 98 - 107 mmol/L 05/18/2024 4:13 PM CDT [facility] CO2, VENOUS 23 22 - 30 mmol/L 05/18/2024 4:13 PM CDT [facility] ANION GAP 14.8 <18.0 mmol/L 05/18/2024 4:13 PM CDT [facility] GLUCOSE 119(H) 70 - 99 mg/dL 05/18/2024 4:13 PM CDT [facility] BUN 9 5 - 18 mg/dL 05/18/2024 4:13 PM CDT [facility] CREATININE, BLOOD 0.67 0.60 - 1.00 mg/dL 05/18/2024 4:13 PM CDT [facility] BUN/CREATININE RATIO 13 12 - 20 ratio 05/18/2024 4:13 PM CDT [facility] TOTAL PROTEIN 7.4 6.3 - 8.2 g/dL 05/18/2024 4:13 PM CDT [facility] ALBUMIN 4.3 3.5 - 5.0 g/dL 05/18/2024 4:13 PM CDT [facility] A/G RATIO 1.4 1.0 - 2.2 05/18/2024 4:13 PM CDT [facility] CALCIUM 9.4 8.7 - 10.5 mg/dL 05/18/2024 4:13 PM CDT [facility] T BILI 0.3 0.2 - 1.2 mg/dL 05/18/2024 4:13 PM CDT [facility] SGOT (AST) 38(H) 5 - 34 U/L 05/18/2024 4:13 PM CDT [facility] SGPT (ALT) 28 0 - 55 U/L 05/18/2024 4:13 PM CDT [facility] ALKALINE PHOSPHATASE 98 40 - 150 U/L 05/18/2024 4:13 PM CDT [facility] GFR, ESTIMATED >60 >=60 05/18/2024 4:13 PM CDT [facility] Comment: Creatinine Clearance is the preferred criteria for selecting drug dose adjustments in renally impaired patients. The GFR is provided as additional pertinent clinical information. GFR is reported in mL/min/1.73 sq m. Calculation based on the Chronic Kidney Disease Epidemiology Collaboration (CKD- EPI) equation refit without adjustment for race. GFR, EST. >60 >=60 024 4:13 PM CDT [facility] GFR, EST. NONAFRICAN >60 >=60 05/18/2024 4:13 PM CDT [facility] Blood Venipuncture / Unknown 05/18/2024 3:18 PM CDT 05/18/2024 3:27 PM CDT Magalie Muller MD CHEMISTRY ORDERABLES Final Res ult [facility] [address] [place] [address] from Last 3 Months or Most Recently Relevant to Health Maintenance Insurance MEDICAID [employer] Advance Directives * Full Code (Latest [...] measures to stabilize the patient. Care Teams Route Clerk Relationship Specialty Start Date End Date Fadi Myers MD [address] [facility] [address] [address] PCP - General Family Medicine 05/18/24
--- OUTSIDE RECORDS SUMMARY | 2025-01-22 16:41 | XMS_ITS | Encounter Summary ---
Author Organization [facility] Healthcare Address [address] [place] [address] Care Team Providers Care Machine Icer Name Role Phone Sanaz Kraus NP Primary Care Provider [phone] Cristo Fernandez MD Unavailable [phone] Encounter Details Date Type Department Care Team (Late st Contact Info) Description 12/10/2024 Results Follow-Up [facility] Medical Group Family Medicine at [address] [place] [address] Fadi Myers MD [address] [place] [address] [address] [place] [address] Social History Tobacco Use Types Packs/Day Years [...] on file 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
--- OUTSIDE RECORDS SUMMARY | 2025-01-22 16:41 | XMS_ITS | Patient Health Record ---
Author Organization [facility] Address [address] [place] [address] Care Team Providers Care Leather Roller Name Role Phone Radu De La Cruz Primary Care Provider [phone] Griselda Cordova Unavailable [phone] Allergies Allergen (clinical drug ingredient) Drug/Non Drug Allergy documented on EMR Reaction Allergy Type Onset Date Status codeine codine (uncoded) Unknown Allergy Act mi penicillin (uncoded) Unknown Allergy Active Levaquin Unknown Drug Allergy Active Reason For Referral No Information Medications Medication SIG (Take, Route, Frequency, Duration) Notes Start Date End Date Status Nystatin 834884 UNIT/GM 1 application to rash on groin/abdomen Externally Twice a day 04/29/2022 Active Triamcinolone Acetonide 0.1 % 1 application to rash on groin/abdomen Externally twice a day 04/29/2022 Active SITagliptin Phosphate 100 MG 1 tablet Orally Once a day 04/29/2022 Active Empagliflozin 10 MG 1 tablet Orally Once a day 04/29/2022 Active Gabapentin 800 MG 1 tablet Orally Once a day for 30 day(s) Active Multivitamin - 1 tablet Orally Once a day for 30 day(s) Active Furosemide 20 MG 1 tablet Orally Once a day for 30 day(s) Active Butalbital-Acetaminophen 50-325 MG 1 tablet as needed Orally every 4 hrs Active hydrOXYzine HCl 50 MG TAKE 1 TABLET BY MOUTH TWICE A DAY NEEDED FOR 30 DAYS for 30 Active HYDROcodone-Acetaminophen 7.5-325 MG 1 tablet as needed Orally every 6 hrs Active Vraylar 4.5 MG 1 capsule Orally Onc e a day for 30 days 04/30/2022 Active Klor-Con 20 MEQ 1 packet with food Orally Once a day for 30 day(s) Active Cyclobenzaprine HCl 10 MG 1 tablet at be dtime as needed Orally Once a day for 30 day(s) Active Sertraline HCl 100 MG 2 tablet Orally On ce a day for 30 days Active Ibuprofen 200 MG 1 tablet with food o r milk as needed Orally Three times a day Active diazePAM 5 MG 1 tablet as needed Orally Once a day Active Divalproex Sodium ER 500 MG 1 tablet Ora lly three times a day for 30 days Active Prochlorperazine Maleate 10 MG 1 tablet as needed Orally Three times a day Active Ondansetron 4 MG 1 tablet on the tongue and allow to dissolve Orally Once a day for 30 day(s) Active Jardiance 10 MG 1 tablet Orally Once a day for 30 day(s) Active Triamcinolone Acetonide 0.5 % 1 application Externally Two times a Week Not-Taking Januvia 100 MG 1 tablet Orally Once a day for 30 day(s) Active Fluconazole 150 MG 1 tablet Orally for 10 day(s) Not-Taking Vitamin D (Ergocalciferol) 1.25 MG (69791 UT) TAKE 1 CAPSULE BY MOUTH ONE TIME PER WEEK for 28 Active Dulcolax 1200 MG/15ML 5 mL at least 4 ho urs between doses as needed Orally Four times a day for 10 days Active Mirtazapine 15 MG TAKE 1/2 (HALF) EVER Y DAY AT BEDTIME for 30 Active Social History Tobacco Use: Social History Observation Description Date Details (start date - stop date) Never Smoker NA - NA Sex Assigned At : Social History Observation Description Sex Assigned At Female Dont use, Tobacco Use/Smoking Question Answer Notes Are you a nonsmoker Problems Problem Type SNOMED Code ICD Code Onset Dates Problem Status W/U Status Risk Notes Problem Morbid (severe) obesity due to excess calories (E66.01) Active confirmed Problem 82470630 Obstructive sleep apnea (adult) (pediatric) (G47.33) Active confirmed Does NOT use her cpap Problem 059989575 Fibromyalgia (M79.7) Active confirmed Problem 063756816 Dependence on other enabling machines 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) Active confirmed Problem 03867402 Mood disorder (F39) Active confirmed 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 Problem Posttraumatic stress disorder (63817462) PTSD (post-traumati c stress disorder) (F43.10) Active confirmed Problem 88959835 Degenerative disc disease, lumbar (M51.36) Active confirmed Problem Constipation (18164015) Constipation (K59.00) Active confirmed Problem Bipolar 2 disorder (30446916) Bipolar 2 disorder (F31.81) Active confirmed Problem 46444965 Chronic fatigue (R53.82) Active confirmed Problem 20509449 Degenerative disc disease, cervical (M50.30) Active confirmed Problem Mixed bipolar I disorder (26797892) Bipolar 1 disorder, mixed (F31.60) Active confirmed Problem 24971097 Type 2 diabetes mellitus with hyperglycemia, without long-term current use of insulin (E11.65) Active confirmed Encounters Encounter Location Date Provider Diagnosis [address] [address] 06/01/2024 Radu De La Cruz Plan Of Treatment No Information Insurance Providers Payer Name Payer Address Payer Phone Subscriber Number Group Number Insured Name Patient Relationship to Insured Coverage Start Date Coverage End Date [facility] Attn Claims Department [address] [address] [id number] Kathy Malcolm Self - patient is the insured 1 [facility] [address] [address] [id number] Kathy Malcolm Self - patient is the insured 1 Medical (General) History Medical History History ICD Code Back pain Surgical History Surgery Date(Month/Year) Bunion removal (3 surgeries) Herniated disc Knee surgery Hospitalization History Reason Date(Month/Year) Herniated discs Bunion surgery [facility]
--- OUTSIDE RECORDS SUMMARY | 2025-01-22 18:18 | XMS_ITS | Encounter Summary ---
Author Organization [facility] Facility Care Team Providers Care Bone Char Kiln Operator Name Role Phone Maury Castillo MD Primary Care Provider [phone] Sanaz Kraus NP Primary Care Provider [phone] Cristo Fernandez MD Unavailable [phone] Encounter Details Date Type Department Care Team (Latest Contact Info) Description 05/07/2016 Orders Only [facility] CLINCONV Provider, MD Guanaco [address] [place] [address] Social History Tobacco Use Types Packs/Day Years Used Date Smoking Tobacco: Never Assessed Comments Unknown Sex and Gender Information Value Date Recorded Sex Assigned at Not on file Legal Sex Female 10:55 PM SCULLION CHIEF Gender Identity Female 01/02/2021 2:07 PM CDT [...] COVID: Suspected 08/10/2021 08/10/2021 08/11/2021 5:46 AM SCULLION CHIEF COVID19 08/24/2021 08/24/2021 09/07/2021 3:05 AM SCULLION CHIEF COVID: Recovered Comment:Added based on recent COVID [...] COVID: Suspected 08/13/2022 08/13/2022 08/13/2022 3:52 PM SCULLION CHIEF COVID: Suspected 08/13/2022 08/13/2022 08/13/2022 9:10 PM SCULLION CHIEF RSV, droplet 08/13/2022 08/16/2022 08/23/2022 3:05 AM SCULLION CHIEF COVID: Suspected 08/16/2022 08/16/2022 08/16/2022 10:42 PM SCULLION CHIEF COVID: Suspected 03/18/2024 03/18/2024 03/18/2024 3:43 PM CDT COVID: Suspected 03/18/2024 03/18/2024 03/18/2024 9:24 PM CDT documented as of this encounter Care Teams Bone Char Kiln Operator Relationship Specialty Start Date End Date Maury Castillo MD PCP - General Family Medicine 09/02/19 06/01/22 Sanaz Kraus NP [address] [facility] [address] [place] [address] [place] [address] PCP - General Family Medicine 06/09/23 Cristo Fernandez MD [address] [place] [address] Referring Physician Psychiatry & Neurology 06/14/24 documented as of this encounter
--- OUTSIDE RECORDS SUMMARY | 2025-01-22 18:18 | XMS_ITS | Encounter Summary ---
Author Organization [facility] Facility Care Team Providers Care Hematology Technologist Name Role Phone Maury Castillo MD Primary Care Provider [phone] Sanaz Kraus NP Primary Care Provider [phone] Cristo Fernandez MD Unavailable [phone] Encounter Details Date Type Department Care Team (Latest Contact Info) Description 02/21/2016 Orders Only [facility] CLINCONV Provider, MD Guanaco [address] [place] [address] Social History Tobacco Use Types Packs/Day Years Used Date Smoking Tobacco: Never Assessed Comments Unknown Sex and Gender Information Value Date Recorded Sex Assigned at Not on file 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 Gender Identity Female 01/02/2021 2:07 PM CDT [...] COVID: Suspected 08/10/2021 08/10/2021 08/11/2021 5:46 AM OPEN HEARTH FURNACE LABORER COVID19 08/24/2021 08/24/2021 09/07/2021 3:05 AM OPEN HEARTH FURNACE LABORER COVID: Recovered Comment:Added based on recent COVID [...] COVID: Suspected 08/13/2022 08/13/2022 08/13/2022 3:52 PM OPEN HEARTH FURNACE LABORER COVID: Suspected 08/13/2022 08/13/2022 08/13/2022 9:10 PM OPEN HEARTH FURNACE LABORER RSV, droplet 08/13/2022 08/16/2022 08/23/2022 3:05 AM OPEN HEARTH FURNACE LABORER COVID: Suspected 08/16/2022 08/16/2022 08/16/2022 10:42 PM OPEN HEARTH FURNACE LABORER COVID: Suspected 03/18/2024 03/18/2024 03/18/2024 3:43 PM CDT COVID: Suspected 03/18/2024 03/18/2024 03/18/2024 9:24 PM CDT documented as of this encounter Care Teams Hematology Technologist Relationship Specialty Start Date End Date Maury Castillo MD PCP - General Family Medicine 09/02/19 06/01/22 Sanaz Kraus NP [address] [facility] [address] [address] PCP - General Family Medicine 06/09/23 Cristo Fernandez MD [address] [place] [address] Referring Physician Psychiatry & Neurology 06/14/24 documented as of this encounter
--- OUTSIDE RECORDS SUMMARY | 2025-01-22 18:18 | XMS_ITS | Encounter Summary ---
Author Organization [facility] Facility Care Team Providers Care Lumber Cutter Name Role Phone Maury Castillo MD Primary Care Provider [phone] Sanaz Kraus NP Primary Care Provider [phone] Cristo Fernandez MD Unavailable [phone] Encounter Details Date Type Department Care Team (Latest Contact Info) Description 03/19/2015 Orders Only [facility] CLINCONV Provider, MD Guanaco [address] [place] [address] Social History Tobacco Use Types Packs/Day Years Used Date Smoking Tobacco: Never Assessed Comments Unknown Sex and Gender Information Value Date Recorded Sex Assigned at Not on file Legal Sex Female 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 Gender Identity Female 01/02/2021 2:07 PM CDT [...] COVID: Suspected 08/10/2021 08/10/2021 08/11/2021 5:46 AM WEB MOBILE DESIGNER COVID19 08/24/2021 08/24/2021 09/07/2021 3:05 AM WEB MOBILE DESIGNER COVID: Recovered Comment:Added based on recent COVID [...] COVID: Suspected 08/13/2022 08/13/2022 08/13/2022 3:52 PM WEB MOBILE DESIGNER COVID: Suspected 08/13/2022 08/13/2022 08/13/2022 9:10 PM WEB MOBILE DESIGNER RSV, droplet 08/13/2022 08/16/2022 08/23/2022 3:05 AM WEB MOBILE DESIGNER COVID: Suspected 08/16/2022 08/16/2022 08/16/2022 10:42 PM WEB MOBILE DESIGNER COVID: Suspected 03/18/2024 03/18/2024 03/18/2024 3:43 PM CDT COVID: Suspected 03/18/2024 03/18/2024 03/18/2024 9:24 PM CDT documented as of this encounter Care Teams Lumber Cutter Relationship Specialty Start Date End Date Maury Castillo MD PCP - General Family Medicine 09/02/19 06/01/22 aSnaz Kraus NP [address] [facility] [address] [place] [address] [place] [address] PCP - General Family Medicine 06/09/23 Cristo Fernandez MD [address] [place] [address] Referring Physician Psychiatry & Neurology 06/14/24 documented as of this encounter
--- OUTSIDE RECORDS SUMMARY | 2025-01-22 18:18 | XMS_ITS | Encounter Summary ---
Author Organization [facility] Facility Care Team Providers Care Baseball Coach Name Role Phone Maury Castillo MD Primary Care Provider [phone] Sanaz Kraus NP Primary Care Provider [phone] Cristo Fernandez MD Unavailable [phone] Encounter Details Date Type Department Care Team (Latest Contact Info) Description 05/08/2016 Orders Only [facility] CLINCONV Provider, MD Guanaco [address] [place] [address] Social History Tobacco Use Types Packs/Day Years Used Date Smoking Tobacco: Never Assessed Comments Unknown Sex and Gender Information Value Date Recorded Sex Assigned at Not on file Legal Sex Female 10:55 PM COIL WRAPPER Gender Identity Female 01/02/2021 2:07 PM CDT [...] COVID: Suspected 08/10/2021 08/10/2021 08/11/2021 5:46 AM COIL WRAPPER COVID19 08/24/2021 08/24/2021 09/07/2021 3:05 AM COIL WRAPPER COVID: Recovered Comment:Added based on recent COVID [...] COVID: Suspected 08/13/2022 08/13/2022 08/13/2022 3:52 PM COIL WRAPPER COVID: Suspected 08/13/2022 08/13/2022 08/13/2022 9:10 PM COIL WRAPPER RSV, droplet 08/13/2022 08/16/2022 08/23/2022 3:05 AM COIL WRAPPER COVID: Suspected 08/16/2022 08/16/2022 08/16/2022 10:42 PM COIL WRAPPER COVID: Suspected 03/18/2024 03/18/2024 03/18/2024 3:43 PM CDT COVID: Suspected 03/18/2024 03/18/2024 03/18/2024 9:24 PM CDT documented as of this encounter Care Teams Baseball Coach Relationship Specialty Start Date End Date Maury Castillo MD PCP - General Family Medicine 09/02/19 06/01/22 Sanaz Kraus NP [address] [facility] [address] [place] [address] [place] [address] PCP - General Family Medicine 06/09/23 Cristo Fernandez MD [address] [place] [address] Referring Physician Psychiatry & Neurology 06/14/24 documented as of this encounter
--- OUTSIDE RECORDS SUMMARY | 2025-01-22 18:18 | XMS_ITS | Encounter Summary ---
Author Organization [facility] Facility Care Team Providers Care Marine Tower Operator Name Role Phone Maury Castillo MD Primary Care Provider [phone] Sanaz Kraus NP Primary Care Provider [phone] Cristo Fernandez MD Unavailable Encounter Details Date Type Department Care Team (Latest Contact Info) Description 03/19/2016 Orders Only [facility] CLINCONV Provider, MD Guanaco [address] [place] [address] Social History Tobacco Use Types Packs/Day Years Used Date Smoking Tobacco: Never Assessed Comments Unknown Sex and Gender Information Value Date Recorded Sex Assigned at Not on file Legal Sex Female 10:55 PM EXPANDER Gender Identity Female 01/02/2021 2:07 PM CDT [...] AM CDT Ordered by an unspecified provider. [facility] Provider Final Res ult * SCAN - LABS (03/19/2016 12:00 AM CDT) Narrative 03/19/2016 12:00 AM CDT Ordered by an unspecified provider. [facility] Provider Final Res ult documented in this encounter Visit Diagnoses Not on filedocumented in this encounter Additional Health Concerns Infection Onset Date Last Indicated Resolved Time COVID: Suspected 07/05/2021 07/05/2021 07/05/2021 2:10 AM CDT COVID: Suspected 08/10/2021 08/10/2021 08/11/2021 5:46 AM EXPANDER COVID19 08/24/2021 08/24/2021 09/07/2021 3:05 AM EXPANDER COVID: Recovered Comment:Added based on recent COVID [...] COVID: Suspected 08/13/2022 08/13/2022 08/13/2022 3:52 PM EXPANDER COVID: Suspected 08/13/2022 08/13/2022 08/13/2022 9:10 PM EXPANDER RSV, droplet 08/13/2022 08/16/2022 08/23/2022 3:05 AM EXPANDER COVID: Suspected 08/16/2022 08/16/2022 08/16/2022 10:42 PM EXPANDER COVID: Suspected 03/18/2024 03/18/2024 03/18/2024 3:43 PM CDT COVID: Suspected 03/18/2024 03/18/2024 03/18/2024 9:24 PM CDT documented as of this encounter Care Teams Marine Tower Operator Relationship Specialty Start Date End Date Maury Castillo MD PCP - General Family Medicine 09/02/19 06/01/22 Sanaz Kraus NP [address] [facility] [address] [address] PCP - General Family Medicine 06/09/23 Cristo Fernandez MD [address] [place] [address] Referring Physician Psychiatry & Neurology 06/14/24 documented as of this encounter
--- OUTSIDE RECORDS SUMMARY | 2025-01-22 18:18 | XMS_ITS | Encounter Summary ---
Author Organization [facility] Facility Care Team Providers Care Set Staff Fitter Name Role Phone Maury Castillo MD Primary Care Provider [phone] Sanaz Kraus NP Primary Care Provider [phone] Cristo Fernandez MD Unavailable [phone] Encounter Details Date Type Department Care Team (Latest Contact Info) Description 09/24/2016 Orders Only [facility]G CLINCONV Provider, MD Guanaco [address] [place] [address] Social History Tobacco Use Types Packs/Day Years Used Date Smoking Tobacco: Never Assessed Comments Unknown Sex and Gender Information Value Date Recorded Sex Assigned at Not on file Legal Sex Female 10:55 PM INDIAN TRADER Gender Identity Female 01/02/2021 2:07 PM CDT Sexual Orientation Straight 12/15/2023 1: 04 AM CDT documented as of this encounter Plan of Treatment Not on file documented as of this encounter Procedures Procedure Name Priority Date/Time Associated Diagnosis Comments PROCEDURE - RESULT 09/25/2016 12 :00 AM INDIAN TRADER documented in this encounter Results * PROCEDURE - RESULT (09/25/2016 12:00 AM INDIAN TRADER) Narrative 09/25/2016 12:00 AM INDIAN TRADER Ordered by an unspecified provider. us Historical Provider Final Res ult documented in this encounter Visit Diagnoses Not on filedocumented in this encounter Additional Health Concerns Infection Onset Date Last Indicated Resolved Time COVID: Suspected 07/05/2021 07/05/2021 07/05/2021 2:10 AM CDT COVID: Suspected 08/10/2021 08/10/2021 08/11/2021 5:46 AM INDIAN TRADER COVID19 08/24/2021 08/24/2021 09/07/2021 3:05 AM INDIAN TRADER COVID: Recovered Comment:Added based on recent COVID [...] COVID: Suspected 08/13/2022 08/13/2022 08/13/2022 3:52 PM INDIAN TRADER COVID: Suspected 08/13/2022 08/13/2022 08/13/2022 9:10 PM INDIAN TRADER RSV, droplet 08/13/2022 08/16/2022 08/23/2022 3:05 AM INDIAN TRADER COVID: Suspected 08/16/2022 08/16/2022 08/16/2022 10:42 PM INDIAN TRADER COVID: Suspected 03/18/2024 03/18/2024 03/18/2024 3:43 PM CDT COVID: Suspected 03/18/2024 03/18/2024 03/18/2024 9:24 PM CDT documented as of this encounter Care Teams Set Staff Fitter Relationship Specialty Start Date End Date Maury Castillo MD PCP - General Family Medicine 09/02/19 06/01/22 Sanaz Kraus NP [address] [facility] [address] [place] [address] [place] [address] PCP - General Family Medicine 06/09/23 Cristo Fernandez MD [address] [place] [address] Referring Physician Psychiatry & Neurology 06/14/24 documented as of this encounter
--- OUTSIDE RECORDS SUMMARY | 2025-01-22 18:19 | XMS_ITS | Clinical Summary ---
Author Organization [facility] Address [address] [place] [address] Care Team Providers Care Verification Lead Name Role Phone Unavailable Primary Care Provider Unavailabl e Source Comments [facility],non-owned Affiliates and Associated Physician Practices is amultiple site organization consisting of ambulatory clinics and hospital sitesin [place], [place], [place] and [place]. This disclosure is being madepursuant to the Care Everywhere program and may not contain all information available regarding this patient. Last updated 18.[facility] Allergies Active Allergy Reactions Criticality Noted Date [...] Active vitamin D, ergocalciferol, (Drisdol) 1.25 MG (12788 UT) capsule TAKE 1 CAPSULE BY MOUTH [...] Daily before breakfast 3 Active HYDROcodone-jeronimo taminophen ([place]) 7.5-325 MG tablet Take 1 (one) tablet [...] on file Legal Sex Female 6:37 AM MUD GRINDER Gender Identity Not on file Sexual Orientation [...] patient's age to complete this topic [place] [address] [place] [address]
--- OUTSIDE RECORDS SUMMARY | 2025-01-22 18:19 | XMS_ITS | CONTINUITY OF CARE DOCUMENT ---
Author Name china atkinson Address Unknown Organization [facility] Address [address] [place] [address] Phone [phone] Care Team Providers Care Milieu Manager Name Role Phone Zelda SIEGEL, Kiran Unavailable [phone] Kiran Ndiaye MD Unavailable [phone] INSURANCE PROVIDERS Payer name Policy type / Coverage type Yves red libertarian [place] [employer] (2) Medicaid [id number]
--- OUTSIDE RECORDS SUMMARY | 2025-01-22 18:19 | XMS_ITS | Encounter Summary ---
Author Organization [facility] Facility Care Team Providers Care Supervisor Wash [place] Name Role Phone Maury Castillo MD Primary Care Provider [phone] Sanaz Kraus NP Primary Care Provider [phone] Cristo Fernandez MD Unavailable [phone] Encounter Details Date Type Department Care Team (Latest Contact Info) Description 07/26/2016 Orders Only MMG CLINCONV Provider, MD Guanaco [address] [place] [address] Social History Tobacco Use Types Packs/Day Years Used Date Smoking Tobacco: Never Assessed Comments Unknown Sex and Gender Information Value Date Recorded Sex Assigned at Not on file Legal Sex Female 10:55 PM PROPOSAL EDITOR Gender Identity Female 01/02/2021 2:07 PM CDT Sexual Orientation Straight 12/15/2023 1: 04 AM CDT documented as of this encounter Plan of Treatment Not on file documented as of this encounter Procedures Procedure Name Priority Date/Time Associated Diagnosis Comments CARDIOLOGY REPORT 07/30/2016 12: 00 AM PROPOSAL EDITOR documented in this encounter Results * CARDIOLOGY REPORT (07/30/2016 12:00 AM PROPOSAL EDITOR) Anatomical Region Laterality Modality Other Narrative 07/30/2016 12:00 AM PROPOSAL EDITOR Ordered by an unspecified provider. Historical Provider [facility] Final Result documented in this encounter Visit Diagnoses Not on filedocumented in this encounter Additional Health Concerns Infection Onset Date Last Indicated Resolved Time COVID: Suspected 07/05/2021 07/05/2021 07/05/2021 2:10 AM CDT COVID: Suspected 08/10/2021 08/10/2021 08/11/2021 5:46 AM PROPOSAL EDITOR COVID19 08/24/2021 08/24/2021 09/07/2021 3:05 AM PROPOSAL EDITOR COVID: Recovered Comment:Added based on recent COVID [...] COVID: Suspected 08/13/2022 08/13/2022 08/13/2022 3:52 PM PROPOSAL EDITOR COVID: Suspected 08/13/2022 08/13/2022 08/13/2022 9:10 PM PROPOSAL EDITOR RSV, droplet 08/13/2022 08/16/2022 08/23/2022 3:05 AM PROPOSAL EDITOR COVID: Suspected 08/16/2022 08/16/2022 08/16/2022 10:42 PM PROPOSAL EDITOR COVID: Suspected 03/18/2024 03/18/2024 03/18/2024 3:43 PM CDT COVID: Suspected 03/18/2024 03/18/2024 03/18/2024 9:24 PM CDT documented as of this encounter Care Teams Supervisor Wash House Relationship Specialty Start Date End Date Maury Castillo MD PCP - General Family Medicine 09/02/19 06/01/22 Sanaz Kraus NP [address] [facility] [address] [place] [address] [place] [address] PCP - General Family Medicine 06/09/23 Cristo Fernandez MD [address] [place] [address] Referring Physician Psychiatry & Neurology 06/14/24 documented as of this encounter
--- OUTSIDE RECORDS SUMMARY | 2025-01-22 18:19 | XMS_ITS | Encounter Summary ---
Author Organization [facility] Address [address] [place] [address] Care Team Providers Care Multiple Tube Winding Machine Operator Name Role Phone Sanaz Kraus NP Primary Care Provider [phone] Cristo Fernandez MD Unavailable [phone] Encounter Details Date Type Department Care Team (Late st Contact Info) Description 12/10/2024 Results Follow-Up [facility] Family Medicine at [address] [place] [address] Fadi Myers MD [address] [place] [address] [address] [place] [address] Social History Tobacco Use Types Packs/Day Years [...] on file Legal Sex Female 10:55 PM CARBURETOR EXPERT Gender Identity Female 01/02/2021 2:07 PM CDT [...] on filedocumented in this encounter Care Teams Multiple Tube Winding Machine Operator Relationship Specialty Start Date End Date Sanaz Kraus NP [address] [facility] [address] [address] PCP - General Family Medicine 06/09/23 Cristo Fernandez MD [address] [place] [address] Referring Physician Psychiatry & Neurology 06/14/24 documented as of this encounter
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
--- OUTSIDE RECORDS SUMMARY | 2025-01-22 18:19 | XMS_ITS | Continuity of Care Document ---
Author Organization [facility] Address [address] [facility] [place] [address] Phone Care Team Providers Care Supervisor [employer] Name Role Phone Kemar Medel MD Unavailable Unavailable Allergies, Adverse Reactions, Alerts Substance Reaction Status Criticality levofloxacin Active No Information Medications Medication Instructions Dosage Effective Dates (start - stop) Status Comments Vitamin D2 50,000 unit capsule take 1 capsule ([id number]) by oral route every week - Active [...] Diagnoses Date Provider Providers Copied on Encounter [facility], [address] [facility] [place], [place], [id number], tel:[phone] [facility] No Information 4 Gianfranco Reinoso. [address], [facility] [place], [place], [id number] , [place]. tel:[phone] Referring Provider: Kemar Medel, [address] [place], [place], [id number]. tel:[phone] OFFICE/OUTPA TIENT VISIT, EST [facility], [address] [place], [place], [id number], [place] tel:[phone] [facility] epilepsy (chief complaint) sleep apnea (chief complaint) liver disease (chief complaint) Dietary surveillance and counselingEpilepsy, unspecified, without mention of intractable epilepsySleep ApneaUnspecified chronic liver disease without mention of alcohol 4 Gianfranco Reinoso. Deneen Horne [facility] [place], [place], [id number] , . tel:[phone] Referring Provider: Deneen Garcia [address] [place], [id number]. tel:[phone] OFFICE/OUTPA TIENT VISIT, [facility], [address] [place], [place], [id number], tel:[phone] [facility] Liver disease (chief complaint) TG (chief complaint) vitamin D (chief complaint) sick (chief complaint) rash (chief complaint) Dietary surveillance and counselingUnspecifi ed chronic liver disease without mention of alcoholMixed HyperlipidemiaRash and other nonspecific skin eruptionViral Infection, Unspecified 4 Gianfranco Donis [address]ene[address] Horne [facility] [place], [id number] , . tel:[phone] Referring Provider: Deneen Garcia [address] [place], [place], [id number]. tel:[phone] PREV VISIT, NEW, AGE 18-39 [facility], [facility] [address] [place], [place], [id number], [place] tel:[phone] [facility] Physical (chief complaint) Dietary surveillance and counselingRoutine Medical ExamRoutine Medical Exam 4 Gianfranco Donis Dene[address] Horne [facility] [place], [place], [id number] , [place]. tel:[phone] Family History Family Member Type Diagnosis Age At Onset Mother Problem (finding) Hypertension Father Problem (finding) Hypertension Father Problem (finding) Diabetes mellitus Mother Problem (finding) Back Pain Father Problem (finding) MS Mother Problem (finding) Diabetes mellitus Payers Payer name Insurance type Covered democrat ID Authoriza tion(s) No Information Social History [...]
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
--- OUTSIDE RECORDS SUMMARY | 2025-01-22 18:19 | XMS_ITS | Encounter Summary ---
Author Organization [facility] Address [address] [place] [address] Phone Care Team Providers Care Mess Cook Name Role Phone Maury Castillo MD Primary Care Provider [phone] Fadi Myers MD Primary Care Provider [phone] Encounter Details Date Type Department Care Team (Late st Contact Info) Description 07/26/2021 Lab Requisition [facility] Services [address] [place] [address] Noemi Narvaez, TECHNICAL INSTRUCTOR COURSE DEVELOPER, ASSEMBLER [employer]IGHT[employer] [address] [place] [address] Encounter for pre-employment examination Social History Tobacco [...] QUANTIFERON-TB GOLD PLUS Routine 07/25/2021 1:50 PM OPERATIONS MANAGER Encounter for pre-employment examination documented in this encounter Results * QUANTIFERON-TB GOLD PLUS (07/25/2021 1:50 PM OPERATIONS MANAGER) NIL CONTROL 0.02 <8.01 IU/mL 07/27/2021 12:44 PM [facility] TB ANTIGEN 1 0.01 <0.35 IU/mL 07/27/2021 12:44 PM [facility] TB ANTIGEN 2 0.02 <0.35 IU/mL 07/27/2021 12:44 PM [facility] MITOGEN CONTROL >10.00 >0.49 IU/mL 07/27/20 12:44 PM [facility] INTEPRETATION TB NEGATIVE NEGATIVE, NEGATIVE (TB antigen response less than 25% of internal negative control value) 07/27/2021 12:44 PM [facility] Comment:No immune response t o Mycobacterium tuberculosis antigens was noted. M. tuberculosis infection unlikely. Blood No Phlebotomy Charged / Unknown 07/25/2021 1:50 PM OPERATIONS MANAGER 07/26/2021 7:43 AM OPERATIONS MANAGER [facility] - 07/27/2021 12:44 PM OPERATIONS MANAGER A POSITIVE QUANTIFERON-TB GOLD PLUS RESULT SHOULD [...] CNP IMMUNOLOGY ORDERABLES F inal Result [facility] [address] [place] [address], documented in this encounter Visit Diagnoses Diagnosis Encounter for pre-employment examination Health examination of defined subpopulation documented in this encounter Additional Health Concerns Infection Onset Date Last Indicated Resolved Time COVID - 19 Confirmed 08/26/2021 08/26/2021 022 12:16 AM OPERATIONS MANAGER documented as of this encounter Care Teams Mess Cook Relationship Specialty Start Date End Date Maury Castillo MD PCP - General Family Medicine 08/26/21 05/17/24 Fadi Myers MD [address] [facility] [address] [place] [address] PCP - General Family Medicine 05/18/24 documented as of this encounter
--- OUTSIDE RECORDS SUMMARY | 2025-01-22 18:19 | XMS_ITS | Encounter Summary ---
Author Organization [facility] Facility Care Team Providers Care Table Keeper Name Role Phone Maury Castillo MD Primary Care Provider [phone] Sanaz Kraus NP Primary Care Provider [phone] Cristo Fernandez MD Unavailable [phone] Encounter Details Date Type Department Care Team (Latest Contact Info) Description 10/25/2017 Orders Only [facility] CLINCONV Provider, MD Guan[place] [address] [place] [address] Social History Tobacco Use Types Packs/Day Years Used Date Smoking Tobacco: Never Assessed Comments Unknown Sex and Gender Information Value Date Recorded Sex Assigned at Not on file Legal Sex Female 10:55 PM PULLMAN CLERK Gender Identity Female 01/02/2021 2:07 PM CDT Sexual Orientation Straight 12/15/2023 1: 04 AM CDT documented as of this encounter Plan of Treatment Not on file documented as of this encounter Procedures Procedure Name Priority Date/Time Associated Diagnosis Comments SCAN - LABS 10/27/2017 12:00 AM PULLMAN CLERK documented in this encounter Results * SCAN - LABS (10/27/2017 12:00 AM PULLMAN CLERK) Narrative 10/27/2017 12:00 AM PULLMAN CLERK Ordered by an unspecified provider. us Historical Provider Final Res ult documented in this encounter Visit Diagnoses Not on filedocumented in this encounter Additional Health Concerns Infection Onset Date Last Indicated Resolved Time COVID: Suspected 07/05/2021 07/05/2021 07/05/2021 2:10 AM CDT COVID: Suspected 08/10/2021 08/10/2021 08/11/2021 5:46 AM PULLMAN CLERK COVID19 08/24/2021 08/24/2021 09/07/2021 3:05 AM PULLMAN CLERK COVID: Recovered Comment:Added based on recent COVID [...] COVID: Suspected 08/13/2022 08/13/2022 08/13/2022 3:52 PM PULLMAN CLERK COVID: Suspected 08/13/2022 08/13/2022 08/13/2022 9:10 PM PULLMAN CLERK RSV, droplet 08/13/2022 08/16/2022 08/23/2022 3:05 AM PULLMAN CLERK COVID: Suspected 08/16/2022 08/16/2022 08/16/2022 10:42 PM PULLMAN CLERK COVID: Suspected 03/18/2024 03/18/2024 03/18/2024 3:43 PM CDT COVID: Suspected 03/18/2024 03/18/2024 03/18/2024 9:24 PM CDT documented as of this encounter Care Teams Table Keeper Relationship Specialty Start Date End Date Maury Castillo MD PCP - General Family Medicine 09/02/19 06/01/22 Sanaz Kraus NP [address] [facility] [address] [place] [address] PCP - General Family Medicine 06/09/23 Cristo Fernandez MD [address] [place] [address] Referring Physician Psychiatry & Neurology 06/14/24 documented as of this encounter
[2025-01-22] MEDS: fentaNYL CITRATE INJ (*CRX) 100 MCG/2 ML VIAL 50 MCG IV PUSH (18:32)
[2025-01-22 18:40] LABS: Basophils Percent Auto 0.4 % (0.2-1.2); Eosinophils Absolute Auto 0.1 K/mm3 (0-0.3); Eosinophils Percent Auto 0.5 % (0-4.4); Hematocrit 40.5 % (37.0-47.0); Hemoglobin 12.5 g/dL (12.0-15.0); Immature Granulocyte Absolute 0.04 K/mm3 (0.00-0.031); Immature Granulocyte Percent A 0.4 % (0-0.5); Lymphocytes Absolute Auto 2.58 K/mm3 (0.9-3.2); Mean Corpuscular HGB Conc 30.9 g/dl (32-36); Mean Corpuscular Hemoglobin 28.5 pg (26-34); Mean Corpuscular Volume 92.5 fl (80-100); Mean Platelet Volume 9.3 fl (7.4-10.4); Monocytes Absolute Auto 0.7 K/mm3 (0.1-0.6); Monocytes Percent Auto 6.8 % (2.6-8.5); Neutrophils Absolute Auto 6.2 K/mm3 (1.3-6.7); Neutrophils Percent Auto 64.9 % (45.5-73.1); Platelet Count Result 460 k/mm3 (150-375); Red Blood Count 4.38 M/mm3 (4.2-5.4); Red Cell Distribution Width 13.7 % (11.5-14.5); White Blood Count 9.5 K/mm3 (4.5-10.0)
[2025-01-22] MEDS: ONDANSETRON INJ 4 MG/2 ML VIAL IV PUSH (18:47)
[2025-01-22 18:48] VITALS: BP 145/88; PULSE 88; RESP 15; O2SAT 95
[2025-01-22 18:51] LABS: Alanine Aminotransferase 33 U/L (6-35); Albumin Level 4.6 g/dL (3.5-5.1); Alkaline Phosphatase 80 U/L (38-126); Anion Gap 8 mmol/L (4-12); Aspartate Amino Transferase 47 U/L (14-36); Bilirubin,Total 0.5 mg/dL (0.2-1.3); Blood Urea Nitrogen 22 mg/dL (7-17); Calcium 9.6 mg/dL (8.4-10.2); Carbon Dioxide 27 mmol/L (22-30); Chloride 105 mmol/L (98-107); Estimated CRCL calculation 119 ml/min; Estimated Glomerular Filt Rate > 60; Glucose 97 mg/dL (65-110); Potassium 4.7 mmol/L (3.4-5.0); Sodium 140 mmol/L (137-145)
--- NOTE | 2025-01-22 19:11 | ED.DENTAL ---
HPI - Dental/Oral General Chief complaint: Dental/Oral Stated complaint: post surgical pain and swelling - dental Time Seen by Provider: 01/22/25 18:02 History of Present Illness HPI Narrative: Patient is a 40-year-old female who presents ER with pain and swelling to her jaw and neck. Patient had all of her teeth and dental implants surgically excised couple days ago. She is on azithromycin for possible infection and has been taking Tylenol with hydrocodone for pain. When she takes her pain medicine her pain level is 5/10. No fevers or chills or sweats. Has difficulty opening her mouth. She is nourishing herself with boost supplements. Related Data Home Medications Medication Instructions Recorded Confirmed Last Taken Type cyclobenzaprine 10 mg tablet 10 mg PO TID PRN Muscle Pain 02/28/20 03/03/23 Unknown History divalproex 500 mg tablet,extended 500 mg PO TID 02/28/20 03/03/23 Unknown History release 24 hr (Depakote ER) gabapentin 600 mg tablet 600 mg PO DIRECTED PRN Pain 02/28/20 03/03/23 Unknown History diazepam 5 mg tablet (Valium) 5 mg PO QHS PRN 03/03/23 Unknown History empagliflozin 10 mg tablet 10 mg PO DAILY 03/03/23 Unknown History (Jardiance) hydrocodone 7.5 mg-ibuprofen 200 1 tablet PO Q4H PRN 03/03/23 Unknown History mg tablet hydroxyzine pamoate 50 mg capsule 50 mg PO QID PRN 03/03/23 03/03/23 Unknown History (Vistaril) quetiapine 100 mg tablet (Seroquel) 300 mg PO HS 03/03/23 03/03/23 Unknown History sertraline 100 mg tablet (Zoloft) 200 mg PO DAILY 03/03/23 03/03/23 Unknown History sitagliptin phosphate 50 mg tablet 50 mg PO DAILY 03/03/23 Unknown History (John) Allergies Allergy/AdvReac Type Severity Reaction Status Date / Time adhesive Allergy Unknown RASH Verified 01/22/25 18:22 codeine Allergy Unknown Anaphylaxis Verified 01/22/25 18:22 levofloxacin AdvReac Unknown Nausea and Verified 01/22/25 18:22 Vomiting Penicillins AdvReac Unknown Unknown Verified 01/22/25 18:22 carisoprodol AdvReac Nausea Verified 01/22/25 18:22 morphine AdvReac Headache Verified 01/22/25 18:22 Review of Systems Review of Systems: All systems reviewed & are unremarkable except as noted in HPI and below Constitutional: Constitutional: Reports no additional constitutional complaints ENT: Reports system reviewed and no additional complaints, except as documented Gastrointestinal: Gastrointestinal: Reports no additional gastrointestinal complaints [facility] Past Medical History Medical History (Updated 01/22/25 @ 19:56 by Clem Lugo MD) Petit mal epilepsy Disc herniation Degenerative arthritis Borderline personality disorder 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 Previous known suicide attempt Anemia Anxiety Depression Bipolar disorder Schizophrenia PCOS (polycystic ovarian syndrome) UTI (urinary tract infection) GERD (gastroesophageal reflux disease) Sleep apnea HTN (hypertension) Migraines Arthritis Surgical History Surgical History (Updated 04/02/24 @ 18:28 by Charla Hudson MD) History of esophagogastroduodenoscopy (EGD) Hx of spinal surgery History of colonoscopy Hx of foot surgery repair of bunionectomy History of bunionectomy Family History Family History Father Depression Multiple sclerosis Diabetes mellitus Mother Hypertension Diabetes mellitus Asthma Social History Social History (Updated 04/02/24 @ 18:30 by Charla Hudson MD) Social History: Ms. Howell lives at home with her mother and stepfather. 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 She wishes to be a full code. She has designated her mother, Rossy Rodgers, as her surrogate decision maker. She is a non-smoker. She reports occasional cannabis use. She denies other illicit substance use. She reports that she drinks wine socially on occasion. Has cat(s). Smoking status: Never smoker Alcohol intake: current Drinks per week: 1 Substance use type: marijuana Other substance usage details: A few times/week for pain and anxiety Living arrangements: with family Occupation/Education: occupation Additional occupation/education comments: [employer] Gender identity (if verbalized by the patient): Female Spiritual care concerns: No Exam Narrative: GENERAL: Well-appearing, well-nourished, and in no acute distress. HEAD: Normocephalic, atraumatic ENT: Mucous membranes moist. Moderate trismus. Intraoral exam without obvious abscess or breakdown of surgical sites. Plastic dentures in place and sutures noted in 4 quadrants the mouth. There is some skin sloughing. Bruising inferior to the corner of the left lip. Tolerating oral secretions. NECK: Firm indurated neck and submandibular region felt to be from inflammation from surgery. No significant erythema/warmth. CHEST: Clear to auscultation. No respiratory distress. HEART: Regular rate and rhythm. Normal peripheral pulses. EXTREMITIES: Normal range of motion. No edema. NEURO: Alert and oriented x3. PSYCH: Normal mood and affect. Course Course Emergency Course: Apparently patient is out of her [place] at home so will refill prescription. Additionally she would likely benefit from some Decadron to help with swelling. Will give her 1 time dose. Vital Signs Vital signs: Vital Signs Temperature 98.3 F 01/22/25 16:38 Pulse Rate 93 01/22/25 16:38 Respiratory Rate 15 01/22/25 16:38 Blood Pressure 146/73 H 01/22/25 16:38 Pulse Oximetry 98 01/22/25 16:38 Oxygen Delivery Room Air 01/22/25 16:38 Temperature 98.3 F 01/22/25 16:38 Pulse Rate 88 01/22/25 18:48 Respiratory Rate 15 01/22/25 18:48 Blood Pressure 145/88 H 01/22/25 18:48 Pulse Oximetry 95 01/22/25 18:48 Oxygen Delivery Room Air 01/22/25 16:38 MDM - Dental/Oral Lab Data 01/22/25 18:35 01/22/25 18:35 Labs: Lab Results 01/22/25 Range/Units 18:35 WBC 9.5 (4.5-10.0) K/mm3 RBC 4.38 (4.2-5.4) M/mm3 Hgb 12.5 D (12.0-15.0) g/dL Hct 40.5 (37.0-47.0) % MCV 92.5 (80-100) fl MCH 28.5 (26-34) pg MCHC 30.9 L (32-36) g/dl RDW 13.7 (11.5-14.5) % Plt Count 460 H (150-375) k/mm3 MPV 9.3 (7.4-10.4) fl Immature Gran % (Auto) 0.4 (0-0.5) % Neut % (Auto) 64.9 (45.5-73.1) % Lymph % (Auto) 27.0 (18.3-44.2) % [place] % (Auto) 6.8 (2.6-8.5) % Eos % (Auto) 0.5 (0-4.4) % Baso % (Auto) 0.4 (0.2-1.2) % Lymph # (Auto) 2.58 (0.9-3.2) K/mm3 [place] # (Auto) 0.7 H (0.1-0.6) K/mm3 Eos # (Auto) 0.1 (0-0.3) K/mm3 Baso # (Auto) 0.0 (0.0-0.1) K/mm3 Abs Immat Gran (auto) 0.04 H (0.00-0.031) K/mm3 Absolute Neuts (auto) 6.2 (1.3-6.7) K/mm3 Absolute Nucleated RBC 0.000 (0.0-0.012) K/mm3 Nucleated RBC % 0.0 (0.0-0.2) % Sodium 140 (137-145) mmol/L Potassium 4.7 (3.4-5.0) mmol/L Chloride 105 (98-107) mmol/L Carbon Dioxide 27 (22-30) mmol/L Anion Gap 8 (4-12) mmol/L BUN 22 H D (7-17) mg/dL Creatinine 0.80 (0.7-1.0) mg/dL Estim Creat Clear Calc 119 ml/min Estimated GFR > 60 (59 - ) Glucose 97 (65-110) mg/dL Calcium 9.6 (8.4-10.2) mg/dL Total Bilirubin 0.5 (0.2-1.3) mg/dL AST 47 H (14-36) U/L ALT 33 (6-35) U/L Alkaline Phosphatase 80 (38-126) U/L Total Protein 8.0 (6.3-8.2) g/dL Albumin 4.6 (3.5-5.1) g/dL Discharge Plan Discharge Clinical Impression: Post-op pain, Lymphadenopathy Patient Disposition: Home Condition: Stable Instructions: Lymphadenopathy (ED) Additional Instructions: Return ER if you cannot breathe, he cannot swallow, you lose consciousness, or have additional concerns. Patient Language: Kazakh Prescriptions: New hydrocodone-acetaminophen 5-325 mg tablet 1 tablet PO Q6H PRN (Reason: pain) Qty: 10 0RF No Action hydroxyzine pamoate [Vistaril] 50 mg capsule 50 mg PO QID PRN Januvia 50 mg tablet 50 mg PO DAILY Jardiance 10 mg tablet 10 mg PO DAILY diazepam [Valium] 5 mg tablet 5 mg PO QHS PRN hydrocodone-ibuprofen 7.5-200 mg tablet 1 tablet PO Q4H PRN cyclobenzaprine 10 mg Tablet 10 mg PO TID PRN (Reason: Muscle Pain) gabapentin 600 mg Tablet 600 mg PO DIRECTED PRN (Reason: Pain) Rx Instructions: up to four times a day divalproex [Depakote ER] 500 mg Tablet Extended Release 24 Hr 500 mg PO TID Rx Instructions: 1 tab in AM, 2 at bedtime quetiapine [Seroquel] 100 mg tablet 300 mg PO HS sertraline [Zoloft] 100 mg tablet 200 mg PO DAILY Rx Instructions: 100mg morning 100mg evening ondansetron HCl [Zofran] 4 mg tablet 4 mg PO Q6H PRN (Reason: nausea and vomiting) Qty: 10 0RF acetaminophen [Tylenol Arthritis Pain] 650 mg tablet extended release 650 mg PO Q12H PRN (Reason: pain) Qty: 10 0RF lidocaine 5 % adhesive patch,medicated 1 patch topical DAILY Qty: 1 0RF Rx Instructions: leave on most painful area for up to 12 hrs, dispense one box metaxalone [Skelaxin] 800 mg tablet 800 mg PO TID PRN (Reason: muscle pain) Qty: 10 0RF doxycycline hyclate 100 mg capsule 100 mg PO BID Qty: 14 0RF ondansetron 4 mg tablet,disintegrating 4 mg PO Q8H PRN (Reason: nausea and vomiting) Qty: 10 0RF fluconazole 150 mg tablet 150 mg PO DAILY Qty: 2 0RF Rx Instructions: administer on day 1 of therapy may repeat in 72 hrs sulfamethoxazole-trimethoprim [Bactrim DS] 800-160 mg tablet 1 tablet PO Q12H Qty: 14 0RF fluconazole 150 mg tablet See Rx Instructions .ROUTE .COMPLEX Qty: 2 0RF Rx Instructions: 150 mg orally; take one tablet if symptomatic yeast infection; if no response, repeat in 72 hours cephalexin 500 mg capsule 500 mg PO Q8H 5 Days Qty: 14 0RF ondansetron 4 mg tablet,disintegrating 4 mg PO Q8H PRN (Reason: nausea and vomiting) Qty: 7 0RF acetaminophen 500 mg capsule 1,000 mg PO Q6H PRN (Reason: pain) Qty: 20 0RF meclizine 25 mg tablet 25 mg PO BID PRN (Reason: dizziness) 5 Days Qty: 20 0RF (DME) pen needle, diabetic [Easy Comfort Pen [place]] 32 gauge x 5/32 needle See Rx Instructions .Route Qty: 50 0RF Rx Instructions: As directed promethazine 25 mg tablet 25 mg PO Q6H PRN (Reason: nausea and vomiting) Qty: 10 0RF eszopiclone 2 mg tablet 2 mg PO ONCE Qty: 1 0RF Rx Instructions: Take tablet with you to sleep center for sleep study, if needed Follow-up/Referrals: Efra,Sanaz Serra, DIVE SUPERVISOR [Primary Care Provider] - 1 Week
[2025-01-22] MEDS: dexAMETHasone SOD PHOS INJ 10 MG/ML 1 ML VIAL IV PUSH (20:23)
== END 2025-01-22 20:27 | disposition home or self-care (01) ==
PROVIDERS: Emergency Provider Emergency Medicine; PCP Nurse Practitioner Family
DX: G89.18 Other acute postprocedural pain (principal); R68.84 Jaw pain; R59.1 Generalized enlarged lymph nodes; I10 Essential (primary) hypertension; E28.2 Polycystic ovarian syndrome; G40.909 Epilepsy, unspecified, not intractable, without status epilepticus; G47.30 Sleep apnea, unspecified; M19.90 Unspecified osteoarthritis, unspecified site; K21.9 Gastro-esophageal reflux disease without esophagitis; F60.3 Borderline personality disorder; F42.9 Obsessive-compulsive disorder, unspecified; F41.9 Anxiety disorder, unspecified; F32.A Depression, unspecified; F20.9 Schizophrenia, unspecified; Z86.2 Personal history of diseases of the blood and blood-forming organs and certain disorders involving the immune mechanism; Z87.440 Personal history of urinary (tract) infections; Z79.84 Long term (current) use of oral hypoglycemic drugs; Z79.899 Other long term (current) drug therapy
CPT/HCPCS: 36415; 70491; 80053; 85025; 96374; 96375; 99284; J1100; J2405; J3010; Q9967